=== PATIENT | female | born 1955 | race Caucasian/White ===

== ENCOUNTER 2018-07-28 15:00 | Outpatient (RCR) | payer MEDICAID, SELFPAY ==
--- NOTE | 2018-07-14 09:25 | IE_ITS ---
Date: July 14, 2018 Referring: PAUL Galeana M.D. Diagnosis: CTS P.T. 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 She states that she does alot of gardening at home, but recently she has bee limited by all capacities by a wrist issue that has been going on for a year. Things feel heavier.She is having some difficulty negotiating very small objects such as when she is trying to count out change or chopping vegetable. She has some numbness and tingling that occurs from the thumb side of her first few fingers of the L hand. It wakes her up in the night sometimes and she has pain directly around the base of the wrist. She had an EMG study completed with neurology in March and it did show mild CTS pt states .She has had splints for CT in the past with good effect. She currently does not have a splint. Pain Ratin/10. Pain at worst 10/10. Prior Level of Function: Unrestricted. Current Level of Function: Difficulty with her gardening chores. Difficulty with fine finger touch dexterity issues like counting out change and shopping. Previous Treatment: Nothing. Social: She lives in [place] alone currently. Comorbidities: Raynaud syndrome and a detached retina. Medications: Ibuprofen, Loratadine, Protonix, Aspirin. Quality of Life: __X__ Good Standardized Measures: DASH score: __56%__ OBJECTIVE: Posture: In standing pt demonstrates a small stature, mild forward head position and an increase in thoracic kyphosis.Pt has no gait abnormalities. No antalgia or ataxia noted. Palpation: She is tender to palpation through the distal wrist crease and through the area of the CT on the palmar surface of the L hand. Positive Tinel sign. An SFMA top tier assessment was completed: dysfunctional nonpainful patterns at cervical spine all motions. UE 1 and UE 2 patterns of the L side. Multi-segmental extension dysfunctional nonpainful arms down deep squat and single leg stance. ROM: Measurements for this pt are as follows: Cervical extension limited to 50% of available motion Cervical rotation limited to 50% of available motion Cervical flexion 75% of available motion Shoulder ROM Flexion 180 degrees R, 165 L Abduction 180 R, 130 L ER hand behind head she reaches a thumb position of T1 with R and C6 with the L. When reaching behind back for functional IR she reaches a thumb position of T12 with the R and L2 with the L. Joint Accessory Motion: Strength: Measurements for this pt are as follows: Mid delt 5/5 Biceps 5/5 Triceps 5/5 Wrist extension and flexion 5/5 bilaterally Director Of People strength as measured by hand dynamometer 55 lbs of pressure on the R and 50 lbs pressure on the L Neuro: Pt intact to light touch and sensation through UE dermatomes. Motor control appears intact over associated myotomes and pt demonstrates appropriate proprioception and kinesthetic awareness. Special Tests: Median nerve tension testing positive L, negative R. Ulnar nerve testing negative bilaterally. Phalen's test and prayer's test are positive L, negative R. Treatment: IE and assessment of functional ability, as well as training in a formal exercise program. Pt demonstrated verbal acknowledgment and technique demonstration. Pt was fabricated with a customized orthotic splint.This is a wrist cock-up splint to support the wrist in about 10 degrees of extension, mainly used for a resting pattern, particularly to be worn at night or in periods of disuse. It can be used as a functional splint as the material is Aquaplast and has a little more of a forgiving nature. IE: X [id number] Direct treatment time: 60 min Total treatment time: 60 min direct pt care ASSESSMENT: Patient is a 62-year-old female with a history of good physical health, referred for PT services with the diagnosis of CTS. Patient presents with clinical signs and symptoms consistent with this diagnosis through the LUE, as demonstrated by the following impairment level findings: ROM deficits through the L shoulder and cervical spine, positive Phalen's test, positive prayer's sign, positive Tinel's sign through the CT on the L, positive nerve tension testing through the median nerve on the L. Impairments are contributing to the following functional limitations:difficulty with performing job activities such as cutting and counting out change, alot of her fine finger dexterity is a little more apprehensive and affected. Patient is assessed as: __X__ Low 46789 complexity, based on the following: History: (list): Raynaud's syndrome, detached retina. Examination: (list): Positive prayer's sign on the L, positive Phalen's test L, positive Tinel's through the CT on the L, positive median nerve tension testing, and ROM deficits through the cervical spine and the L shoulder. Presentation: X Stable Decision-Making: X Low complexity 56 % Disability based on DASH __X__ Patient requires skilled PT intervention to remediate the above functional limitations to return to: __X__ Premorbid level of function Prognosis __X__ Good as evidence suggests improvement of functional abilities with compliance to a detailed HEP tailored to her diagnosis and following through with PT intervention. STG: __2__ weeks. 1. Pt will be independent in HEP both verbally and with ideal technique demonstration. LTG: __6__ weeks. 1. 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 PLAN: Patient to be seen 1 x per week, for 6 weeks, adjusting frequency of visits per patient symptoms and response to treatment. Treatment to include: X Manual therapy - [id number]: for enhancing muscle extensibility and improving joint arthrokinematics. X Therapeutic exercise - [id number] tactile cues, verbal education and advanced movement correctives for establishing muscle symmetry through the scapular thoracic region, improving stability and motor control through the cervical spine and upper quarter. X Ultrasound and e-stim available for pain modulation as necessary. The pt will be monitored for compliance to HEP and pts status will be updated accordingly. Plan may be modified as symptoms dictate. Thank you for this referral. Please do not hesitate to contact me with any questions or concerns regarding this patient's plan of care. KRISTOFER/ria
--- NOTE | 2018-07-28 16:37 | PTTR_ITS ---
DATE: 07/28/18 SUBJECTIVE: I am doing okay for the most part. OBJECTIVE: Manual therapy: ([id number]): Patient was placed in sitting and guided through light passive motion through the elbow and shoulder. Soft tissue work was completed through the proximal and distal common wrist extensor and flexor musculature. Patient then placed in supine and mobilized with median nerve glides while promoting proximal release of tension and distal flossing. She completed a nine hole peg test with 30 seconds on either side. 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 Patient finished through treatment with extension based stretching through the elbow and wrist. Direct treatment time: 30 minutes of direct patient care.
== END 2018-07-29 23:59 | disposition home or self-care (01) ==
LOC: PT 15:00
PROVIDERS: PCP Physician Assistant Medical; Referring Provider Physician Assistant Medical; Visit Provider Physician Assistant Medical
DX: G56.02 Carpal tunnel syndrome, left upper limb (principal)
CPT/HCPCS: 97140; 97161

== ENCOUNTER 2018-10-21 12:50 | Outpatient (CLI) | payer MEDICAID, SELFPAY | END 2018-10-21 13:10 | PROVIDERS: PCP Physician Assistant Medical; Visit Provider Physician Assistant Medical | DX: R30.0 Dysuria (principal) | CPT/HCPCS: 87086 ==

== ENCOUNTER 2018-11-03 19:08 | Outpatient (REF) | payer MEDICAID, SELFPAY ==
[2018-11-03 21:52] LABS: Bacteria Rare HPF (Negative); Epithelial Cells Rare HPF (Negative); RBC 0-2 (0-2); WBC 0-2 HPF (0-5)
[2018-11-03 21:53] LABS: C & S Indicated? No; Crystals Negative HPF (Negative); Mucus Negative (Negative)
[2018-11-03 21:54] LABS: Other Cells Few Renal (Negative)
== END 2018-11-03 19:28 ==
LOC: NCHCN 19:08
PROVIDERS: PCP Physician Assistant Medical; Visit Provider Specialist/Technologist Athletic Trainer
DX: R30.0 Dysuria (principal)
CPT/HCPCS: 81015; 87480; 87510; 87660

== ENCOUNTER 2018-11-09 14:37 | Outpatient (REF) | payer MEDICAID, SELFPAY ==
[2018-11-09 20:27] LABS: Abs Immature Grans 0.01 k/cumm (0.0-0.09); Absolute Eosinophil Count 0.21 k/cumm (0.0-0.7); Absolute Lymphocyte Count 0.26 k/cumm (1.2-3.4); Absolute Monocyte Count 0.61 k/cumm (0.11-0.7); Absolute Neutrophil Count 8.44 k/cumm (1.2-6.7); Eosinophils % 2.2; HCT 38.3 % (36.0-46.0); HGB 13.1 g/dL (12.0-15.5); Immature Grans % 0.1; Lymphocytes % 2.7; Mean Corp. HGB Concentration 34.2 g/dL (32.0-36.0); Mean Corpuscular Hemoglobin 29.6 pg (27.0-33.0); Mean Corpuscular Volume 86.7 fL (80-95); Mean Platelet Volume 10.9 fL (8.0-11.0); Monocytes % 6.4; Neutrophils % 88.6; Platelet Count 134 x1000/uL (130-400); RBC 4.42 m/cumm (4.00-5.20); RBC Distribution Width 13.2 % (11.7-14.6); White Blood Cell Count 9.53 k/cumm (4.4-10.8)
[2018-11-09 21:37] LABS: ALT 38 U/L (12-78); AST 31 U/L (15-37); Albumin 3.6 g/dL (3.4-5.0); Alkaline Phosphatase 79 U/L (46-116); Anion Gap 12.8 mmol/L (3-11); BUN 11 mg/dL (7-18); Bilirubin, Total 0.3 mg/dL (0.2-1.0); CO2 25.2 mmol/L (21.0-32.0); Calcium 8.7 mg/dL (8.5-10.1); Chloride 97 mmol/L (98-107); Glucose 121 mg/dL (70-100); Potassium 3.5 mmol/L (3.5-5.1); Sodium 135 mmol/L (136-145); Total Protein 7.5 g/dL (6.4-8.2)
== END 2018-11-09 14:57 ==
LOC: NCHCN 14:37
PROVIDERS: PCP Physician Assistant Medical; Visit Provider Specialist/Technologist Athletic Trainer
DX: R50.9 Fever, unspecified (principal)
CPT/HCPCS: 80053; 85025

== ENCOUNTER 2018-11-10 13:16 | Outpatient (REF) | payer MEDICAID, SELFPAY | END 2018-11-10 13:36 | LOC: NCHCN 13:16 | PROVIDERS: PCP Physician Assistant Medical; Visit Provider Specialist/Technologist Athletic Trainer | DX: R30.0 Dysuria (principal) | CPT/HCPCS: 87086 ==

== ENCOUNTER 2019-01-17 10:32 | Outpatient (REF) | payer MEDICAID, SELFPAY ==
[2019-01-17 19:00] LABS: Cholesterol 222 mg/dL (50-200); HDL Cholesterol 60 mg/dL (40-60); LDL CHOLESTEROL 135 mg/dL (<100); Triglyceride 114 mg/dL (30-150)
== END 2019-01-17 10:52 ==
LOC: NCHCN 10:32
PROVIDERS: PCP Physician Assistant Medical; Visit Provider Physician Assistant Medical
DX: E78.5 Hyperlipidemia, unspecified (principal)
CPT/HCPCS: 80061; 83721

== ENCOUNTER 2019-04-26 18:46 | Outpatient (REF) | payer MEDICAID, SELFPAY ==
[2019-04-28 14:09] LABS: Lyme Ab w Rflx to Lyme Confirm Negative
[2019-04-28 21:31] LABS: Anaplasma phagocytophilum Negative (Negative); B. miyamotoi PCR Negative (Negative); Babesia divergens/MO-1 Negative (Negative); Babesia duncani Negative (Negative); Babesia microti Negative (Negative); Ehrlichia chaffeensis Negative (Negative); Ehrlichia ewingii/canis Negative (Negative); Ehrlichia muris eauclairensis Negative (Negative)
== END 2019-04-26 19:06 ==
LOC: NCHCN 18:46
PROVIDERS: PCP Physician Assistant Medical; Visit Provider Physician Assistant Medical
DX: M54.5 Low back pain (principal)
CPT/HCPCS: 86618; 87798

== ENCOUNTER 2019-05-01 01:05 | Outpatient (CLI) | payer MEDICAID, SELFPAY ==
--- NOTE | 2019-05-01 08:51 | DI.RAD_ITS ---
SYMPTOM/DIAGNOSIS: LOW BACK PAIN M54.5 LUMBOSACRAL SPINE: Five views were obtained. There is a mild right convex lumbar scoliosis. The intervertebral disc spaces appear fairly well maintained. Minimal hypertrophic spurring of the vertebral endplates and facet joints noted. No evidence of spondylolysis or spondylolisthesis. CONCLUSION: Mild degenerative changes of the lumbar spine. SI JOINTS: Four views were obtained. Minimal hypertrophic spurring noted at the SI joints bilaterally. No gross erosive or destructive process. No significant sclerosis identified on oblique views. CONCLUSION: Mild degenerative changes of the SI joints. No gross evidence of sacroiliitis.
== END 2019-05-01 01:25 ==
PROVIDERS: PCP Physician Assistant Medical; Visit Provider Physician Assistant Medical
DX: M54.5 Low back pain (principal); M47.816 Spondylosis without myelopathy or radiculopathy, lumbar region; M53.3 Sacrococcygeal disorders, not elsewhere classified
CPT/HCPCS: 72110; 72202

== ENCOUNTER 2019-07-07 07:18 | Outpatient (CLI) | payer MEDICAID, SELFPAY ==
--- NOTE | 2019-07-07 10:16 | DI.RAD_ITS ---
SYMPTOMS/DIAGNOSIS: ELBOW PAIN RT, M25.521, HX FX WITH PIN PLACEMENT IN , PROGRESSIVELY WORSENING PAIN DAILY, CHRONIC RIGHT ELBOW: Four views were obtained. No previous films available for comparison. There is a radial head prosthesis. This appears somewhat subluxed with respect to the [place] radius and the capitellum as the prosthesis lies somewhat peripherally in the radial capitellar joint. Degenerative changes of the ulnar trochlear joint noted. There appears to be a joint effusion. CONCLUSION: Apparent subluxed radial head prosthesis, no previous films available for comparison.
== END 2019-07-07 07:38 ==
PROVIDERS: PCP Nurse Practitioner Family; Visit Provider Nurse Practitioner Family
DX: M25.521 Pain in right elbow (principal); Z87.81 Personal history of (healed) traumatic fracture
CPT/HCPCS: 73080

== ENCOUNTER 2019-08-01 00:41 | Outpatient (CLI) | payer MEDICAID, SELFPAY ==
--- NOTE | 2019-08-01 15:27 | DI.MRI_ITS ---
SYMPTOMS/DIAGNOSIS: LOW BACK PAIN, M54.5, LEFT LEG NUMBNESS/WEAKNESS MRI OF THE LUMBAR SPINE: Comparison is made with April,. T1, T2 and STIR sagittal and T1 and T2 axial sequences were performed. The vertebral bodies are well maintained in height. The conus medullaris appears normal. The aorta is normal in diameter. The L1-2 disc is intact. There is minimal bulging of the L2-3 and L3-4 discs. The L4-5 disc shows mild bulging eccentric toward the left. There is no significant neural foraminal narrowing or central canal stenosis. The L5-S1 level shows mild facet degenerative changes, but no significant disc bulging, neural foraminal narrowing or central canal stenosis. The urinary bladder is noted to be markedly distended, nearly to the level of the umbilicus. IMPRESSION: 1. Mild degenerative disc changes and facet degenerative changes. There is no evidence of disc herniation, central canal stenosis or neural foraminal narrowing. 2. Marked distention of the urinary bladder.
== END 2019-08-01 01:01 ==
PROVIDERS: PCP Nurse Practitioner Family; Visit Provider Physician Assistant Medical
DX: M54.5 Low back pain (principal); R20.0 Anesthesia of skin; M51.37 Other intervertebral disc degeneration, lumbosacral region; M47.817 Spondylosis without myelopathy or radiculopathy, lumbosacral region
CPT/HCPCS: 72148

== ENCOUNTER 2019-08-14 00:40 | Outpatient (CLI) | payer MEDICAID, SELFPAY ==
--- NOTE | 2019-08-14 15:22 | DI.US_ITS ---
EXAM: US renal CLINICAL HISTORY: BLADDER DISTENSION, N32.89 TECHNIQUE: Ultrasound performed using standard protocol. COMPARISON: None. FINDINGS: Kidneys are normal in size and shape. There is no evidence of nephrolithiasis, hydronephrosis. or a renal mass. Urinary bladder is unremarkable in appearance with pre and postvoid urinary bladder volu me measurements 281 cc and 111 cc respectively. IMPRESSION: Post void residual volume of the bladder of 111 cc's. Otherwise unremarkable exam.
== END 2019-08-14 01:00 ==
PROVIDERS: PCP Nurse Practitioner Family; Visit Provider Physician Assistant Medical
DX: N32.89 Other specified disorders of bladder (principal)
CPT/HCPCS: 76770

== ENCOUNTER 2019-08-14 13:32 | Outpatient (CLI) | payer MEDICAID, SELFPAY ==
[2019-08-14 16:19] LABS: Bilirubin Negative (Negative); Blood Trace-intact (Negative); Clarity Clear (Clear); Glucose Negative (Negative); Ketones Negative (Negative); Leukocyte Esterase Small (Negative); Nitrite Negative (Negative); Specific Gravity <= 1.005 (1.005-1.025); Urobilinogen 0.2 EU/dL (Up TO 0.2); pH 5.5 (5-8)
[2019-08-14 16:41] LABS: Epithelial Cells Rare HPF (Negative); RBC 0-2 (0-2); WBC 20-50 HPF (0-5)
[2019-08-14 16:42] LABS: Bacteria Moderate HPF (Negative); C & S Indicated? Yes; Casts Negative LPF (Negative); Crystals Negative HPF (Negative); Mucus Negative (Negative)
== END 2019-08-14 13:52 ==
PROVIDERS: PCP Nurse Practitioner Family; Visit Provider Physician Assistant Medical
DX: N39.0 Urinary tract infection, site not specified (principal)
CPT/HCPCS: 81003; 81015; 87086

== ENCOUNTER 2019-08-18 12:28 | Outpatient (CLI) | payer MEDICAID, SELFPAY ==
--- NOTE | 2019-08-18 11:20 | DI.CT_ITS ---
EXAM: CT UPPER EXTREMITY RT WO CLINICAL HISTORY: history of right radial head fx M25.529 PAIN IN ELBOW. TECHNIQUE: The examination was carried out according to the usual protocol. COMPARISON: XR elbow RT complete from 07/07/2019 FINDINGS: Compared with the previous plain films, again noted is the current subluxation of the radial head pro sthesis with respect to the [place] radius and capitellum. The prosthesis is again demonstrated to rid e peripherally in the radial capitellar joint. IMPRESSION: When compared with a prior study, again noted is the apparent subluxation of the head prosthesis.
== END 2019-08-18 12:48 ==
PROVIDERS: PCP Nurse Practitioner Family; Visit Provider Physician Assistant
DX: M25.521 Pain in right elbow (principal); S52.121D Displaced fracture of head of right radius, subsequent encounter for closed fracture with routine healing; Z96.622 Presence of left artificial elbow joint
CPT/HCPCS: 73200

== ENCOUNTER 2019-08-21 09:10 | Outpatient (CLI) | payer MEDICAID, SELFPAY ==
--- NOTE | 2019-08-21 15:12 | DI.MAMMO_ITS ---
EXAM: MG MAMMO SCREENING CLINICAL HISTORY: SCREENING Z00.8 HEALTH MAINTENANCE EXAM. TECHNIQUE: Mammograms were interpreted according to the usual protocol including computer analysis w Surface Tension CAD system, tomosynthesis and C-view imaging. COMPARISON: No exams were available for comparison FINDINGS: The breast tissue is heterogeneously radiodense, which lowers the sensitivity of the study. There is no dominant mass. There are no suspicious calcifications and there has been no significant interval change when compared with prior images. IMPRESSION: No evidence of malignancy, category 1, yearly screening mammography is recommended. BI-RADS category C. BI-RADS Cat 1 - Negative Breast Density - Category C - Heterogeneously dense
== END 2019-08-21 09:30 ==
PROVIDERS: PCP Nurse Practitioner Family; Visit Provider Physician Assistant Medical
DX: Z12.31 Encounter for screening mammogram for malignant neoplasm of breast (principal)
CPT/HCPCS: 77063; 77067

== ENCOUNTER 2019-08-25 19:49 | Outpatient (REF) | payer MEDICAID, SELFPAY ==
--- NOTE | 2019-08-25 14:30 | PAPFT_PTH ---
PATIENT: Ellie Chauhan LOC: [facility]#:[id number] AGE/SX: 64/F ROOM: RE08/25/[address]: Shara Burks : 1955 BED: DIS: 08/25/2019 SPEC #: [id number] RECD: 08/28/19 13:09 STATUS: [place] REQ #: [id number] MARGOT: 08/25/19 14:[address]: Shara Burks DEPT: [facility] Cytology RECD BY: Ashanti Smallwood ENTERED: 08/28/19 13:09 SP TYPE: PAPFT OTHR DR: Tricia Calderón Tissues: 1 - CX/ENDOCX FOR PAP SMEARS Procedures: PAP THIN PREP/UVM Screening HPV DNA PROBE Comments: [id number]
[2019-08-25 19:54] LABS: ALT 24 U/L (14-59); AST 16 U/L (15-37); Albumin 3.8 g/dL (3.4-5.0); Alkaline Phosphatase 70 U/L (46-116); Anion Gap 10.3 mmol/L (3-11); BUN 19 mg/dL (7-18); Bilirubin, Total 0.2 mg/dL (0.2-1.0); CO2 23.7 mmol/L (21.0-32.0); CREATININE 0.75 mg/dL (0.55-1.02); Calcium 8.7 mg/dL (8.5-10.1); Chloride 105 mmol/L (98-107); Glucose 105 mg/dL (70-100); Potassium 3.9 mmol/L (3.5-5.1); Sodium 139 mmol/L (136-145); Total Protein 7.6 g/dL (6.4-8.2)
[2019-08-28 10:33] LABS: Syphilis Serology (RPR) Negative (Negative)
[2019-08-28 11:40] LABS: HIV-1/2 Ag & Ab Screen Negative (NEGAT)
[2019-08-28 11:43] LABS: Hepatitis C Ab w Rflx HCV PCR Negative (NEGAT)
[2019-08-28 14:08] LABS: Chlamydia Result Negative; GC Result Negative; Specimen Description CERVIX
== END 2019-08-25 20:09 ==
LOC: NCHCN 19:49
PROVIDERS: PCP Nurse Practitioner Family; Visit Provider Physician Assistant Medical
DX: N32.89 Other specified disorders of bladder (principal); Z11.59 Encounter for screening for other viral diseases; Z11.4 Encounter for screening for human immunodeficiency virus [HIV]; Z12.4 Encounter for screening for malignant neoplasm of cervix; Z11.51 Encounter for screening for human papillomavirus (HPV); Z11.3 Encounter for screening for infections with a predominantly sexual mode of transmission
CPT/HCPCS: 80053; 86803; 87389; 87491; 87591; 88142; 86592; 87624

== ENCOUNTER 2019-08-29 13:09 | Outpatient (CLI) | payer MEDICAID, SELFPAY ==
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
== END 2019-08-29 13:29 ==
PROVIDERS: PCP Physician Assistant Medical; Visit Provider Student in an Organized Health Care Education/Training Program
DX: S52.121A Displaced fracture of head of right radius, initial encounter for closed fracture (principal); G56.21 Lesion of ulnar nerve, right upper limb; Z01.818 Encounter for other preprocedural examination
CPT/HCPCS: NC

== ENCOUNTER 2019-09-06 06:57 | Day surgery (SDC) | payer MEDICAID, SELFPAY ==
[2019-09-06 07:16] VITALS: BP 109/67; PULSE 65; RESP 18; TEMP 36.3; O2SAT 98
[2019-09-06] MEDS: Lactated Ringers 1,000 ML 80 ML IV (07:25)
[2019-09-06] MEDS: ceFAZolin 2 GM/50 ML BAG IVPB (07:42)
--- NOTE | 2019-09-06 07:42 | PDOC.DSDIS_ITS ---
Discharge Plan Disposition Patient Disposition: HOME Condition: Good Discharge Details Reason For Visit: CTS , NON UNION RADIAL NECK Attending Provider: Marco A Horvath Primary Care Provider: Shara Burks Home Meds and New Rx's Prescriptions: New hydrocodone-acetaminophen 5-325 mg tablet 1 tab PO Q4H PRN (Reason: pain) Qty: 14 RF: 0 acetaminophen 500 mg tablet 500 mg PO Q8H PRN (Reason: pain) Qty: 60 RF: 3 Continued meclizine 12.5 mg tablet 12.5 mg PO Q6H PRN PRNRF: 0 aspirin [Aspir-81] 81 MG tablet,delayed release (DR/EC) 1 tab PO DAILY RF: 0 multivitamin 1 EACH capsule 1 cap PO DAILY RF: 0 pantoprazole 40 MG tablet,delayed release (DR/EC) 40 mg PO DAILY RF: 0 vitamin B complex [B-Complex] 1 EACH tablet 1 ea PO DAILY RF: 0 loratadine 10 MG tablet 10 mg PO DAILY RF: 0 calcium carbonate-vitamin D3 [Calcium 600 with Vitamin D3] 600 mg(1,500mg) - 500 unit Capsule 2 cap PO DAILY RF: 0 sulfamethoxazole-trimethoprim [Bactrim] 400-80 mg Tablet 1 tab PO BID RF: 0 ibuprofen 800 MG tablet 800 mg PO TID PRN PRNQty: 60 RF: 0 Discharge Instructions Additional Instructions: Activity: You should stay in the sling for the first 2 weeks. You may come out of the sling for gentle motion and hygiene but should largely remain in the sling to allow the incision sites to heal. Gentle motion of the elbow, hand, wrist, and fingers is okay and encouraged after the first few days, but no repetitive activites nor heavy lifting. You may apply ice. Medications: - You should take Tylenol and Ibuprofen around the clock. - You have been prescribed Hydrocodone for breakthrough pain. Dressings: - The initial surgical dressing should stay in place for 3 days. It may then be removed and kept clean and dry. You should cover with a light gauze dressing. The wrist dressing can be replaced with a bandaid. The elbow wounds can be covered with a light gauze wrap. You may also choose to leave the elbow dressing in place until follow-up if so desired. - You may shower after 3 days and get the wound wet. Dry and then cover with fresh gauze/dressing. Follow-up: 10 days Referrals: Marco A Horvath MD [ [facility] STAFF PHYSICIAN] - Equipment/Supplies: Sling Activity:: Gentle range of motion, otherwise in sling Remove Dressings/Wound Care:: 72 hours Shower/Bathe:: 72 hours Diet:: As Tolerated Discharge Orders Discharge Orders: Discharge Order (Routine); Ordered 09/06/19 Ordered By: Marco A Horvath DS: Diagnosis Discharge Diagnosis (1) Right upper extremity numbness: Status: Acute (2) Right radial head fracture: Status: Acute (3) Cubital tunnel syndrome on right: Status: Acute
[2019-09-06] MEDS: Sodium Bicarbonate 50 MEQ/50 ML VIAL (07:55)
[2019-09-06 08:58] VITALS: BP 126/61; PULSE 71; RESP 16; TEMP 36.6; O2SAT 97
[2019-09-06 09:02] VITALS: BP 116/68; PULSE 74; RESP 13; TEMP 36.6; O2SAT 95
[2019-09-06 09:07] VITALS: BP 120/71; PULSE 71; RESP 16; TEMP 36.6; O2SAT 95
[2019-09-06 09:12] VITALS: BP 132/62; PULSE 73; RESP 14; TEMP 36.6; O2SAT 97
[2019-09-06 10:02] VITALS: BP 121/71; PULSE 68; RESP 15; TEMP 36.3; O2SAT 98
--- NOTE | 2019-09-07 06:39 | ROE_ITS ---
Date of service: 09/06/19 Time of Service: 10:39 Operative Note Operative Note DATE OF PROCEDURE: 09/06/19 PRE-OP DIAGNOSIS: Right retained radial head prosthesis, Right cubital tunnel syndrome, Right carpal tunnel syndrome POST-OP DIAGNOSIS: same PROCEDURE: Endoscopic right carpal tunnel release, right cubital tunnel decompression, removal of right radial head prosthesis and radiocapitellar synovectomy SURGEON: Marco A Horvath SALES REPRESENTATIVE GROCERIES: Krystina Patricia ANESTHESIA: GETA ESTIMATED BLOOD LOSS: 10 PATHOLOGY: none sent TOURNIQUET TIME: 45 COMPLICATIONS: None Patient was transported to: PACU Patient's condition: stable Indications: Ellie is a 64 who has had symptoms of carpal tunnel syndrome, cubital tunnel syndrome, and a painful elbow stemming from a retained radial head prosthesis which was placed in the 80s and not intended to stay permanently. Nonoperative treatment options had been trialed. Given failure of nonoperative treatments and persistent symptoms, I offered operative intervention. I reviewed the technical details of the surgeries. I reviewed the risk of the procedure to include bleeding, infection, pain, stiffness, damage to nerves and vessels, damage to muscles and tendons, continued symptoms, elbow instability, need for repeat procedures. Despite these risks, the patient elected to proceed. Findings: There was a tightened cubital tunnel. There was an epitrochlearis muscle present compressing the ulnar nerve. The ulnar nerve was release from the first motor branch distally through the [place] of Mode proximally. The carpal tunnel was released endoscopically without difficulty nor issue. The elbow was injured to a Neely approach and the radial head prosthesis was removed. There is notable signs of deterioration of the radial head prosthesis. A synovectomy was performed of the radiocapitellar joint. Procedure Description: Ellie was greeted in the preoperative holding area. Name and surgical site were confirmed. The history and physical was completed. The consent was reviewed the patient and signed. She was taken back to the operating room. The patient was placed in the supine positioned and a general anesthetic was administered. The right arm was then prepped with ChloraPrep and draped in a standard fashion after a nonsterile tourniquet was placed high up into the axilla of the arm. Prophylactic antibiotics in the form of cefazolin were administered. A timeout was performed for safe surgery. Carpal Tunnel Release: The surgical site was marked in the volar wrist creases in line with the radial border of the fourth ray. This area was anesthetized with approximately 6cc of 1% Lidocaine. The limb was then exsanguinated with an Esmarch. The skin was incised with a 15 blade, approximately 1cm. The skin only was cut and the deeper tissue was dissected bluntly with a tenotomy scissor, avoiding passing nerve and venous structures. The fascia was penetrated and opened bluntly. A two-prong skin hook was placed under this proximal fascial edge. A series of hamate finders were used to identify and dilate the carpal tunnel. Synovial elevator was used to free synovial attachments to the underside of the cage sverse carpal ligament. My thumb was kept in the palm to krystina the distal extent of the carpal tunnel and correctly position the hand. The Microaire endoscope was inserted without difficulty and without resistance. Excellent visualization showed horizontally running fibers of the transverse carpal ligament (TCL). The distal extent of the TCL was visualized and the end of the scope palpated with the thumb. The blade was elevated and withdrawn from distal to proximal. The TCL was split into two flaps. The endoscope was reinserted to confirm complete release and any remnant ligament was incised. The scope was withdrawn and the proximal aspect of the carpal tunnel was grossly inspected and appeared release with the median nerve visible. The antebrachial fascia at the level of the wrist was then freed from the overlying skin and then the underlying median nerve with blunt dissection. This was transected longitudinally for about 3cm proximal to the wrist incision. The wound was then irrigated with easy flow of irrigant distally and proximally. The incision was closed with a single 4-0 Nylon suture. Cubital Tunnel Release: The surgical site was drawn on the skin as was the lateral epicondyle borders. The planned surgical field was anesthetized with 0.25% bupivacaine with epinephrine. A 6 cm incision was made curvilinearly around the medial elbow. The skin was incised only. The deep tissue subcutaneous fat was dissected with a tenotomy scissors trying to protect any branches of the medial antebrachial cutaneous nerve. Any branches that were identified were retracted out of the way. The ulnar nerve was palpated and identified. A small window into the cubital tunnel was created and the nerve is able to be palpated with the [place] proximal to the cubital tunnel. A Metzenbaum scissor was then used to open up the sheath starting with the Mcelroy's ligament. There is a large epitrochlear areas muscle which was present and was visibly compressing the ulnar nerve. I then worked distal over the ulnar nerve releasing any constraints against the nerve all the way to the fascia of the FCU muscle belly. This muscle belly was bluntly all the way down to the first motor branch of the ulnar nerve. Likewise starting there at the lateral condyle proceeded working proximally to release any constraints over the ulnar nerve. This was taken all the way to the arcade of Tim. The medial intermuscular septum was also palpated in any sharp edges against the ulnar nerve were resected. After fully releasing the nerve it was inspected visually. I was also able to palpate the nerve fully and reach one finger up into the proximal distal aspects to make sure there is no constraints against the nerve. A freer elevator was also used to slide easily against the ulnar nerve without any points of constriction. The arm was then taken through range of motion. The ulnar nerve did not sublux/dislocate out of its groove behind the lateral epicondyle. Therefore, no transposition was performed. Radial Head Prosthesis Removal: Previous incision of the lateral elbow was injected with 0.25% bupivacaine with epinephrine. A 4 cm incision was made. The dissection was carried onto the skin sharply. Tenotomy scissors were utilized to dissect down to the fascia of the lateral forearm. The tendinous fibers of the EDC tendon were identified. These were then incised and elevated off of the lateral humerus anteriorly and split. With them deeper tissues were identified in the capsule of the radial capitellar joint was incised. There is notable hypertrophy of this area. The tissue was quite dense. What was likely previous annual ligament was thickened and difficult to incise. All dissection was carried anterior to the equator of the joint to avoid any injury to the lateral ulnar collateral ligament. The radial head prosthesis was identified and was able to be removed with an osteotome freeing it out. I then took a rondure your and debrided the radiocapitellar joint of any loose synovitis. There is notable hypertrophy of the soft tissues. This made visualization quite challenging. There irrigation of the joint was performed. Again, rondure was used to remove any apparent synovitis within the elbow joint itself. There is notable arthritic change seen along the capitellum and the lateral humerus. There is some bony irregularities which were smoothed with a rondure work. The wound was once again irrigated. The deep layer of the elbow joint was closed with 0 Vicryl. The EDC tendon was closed with a running 2-0 Vicryl. The deep dermal layer was closed with 3-0 Vicryl followed by 4-0 nylon. The wounds were dressed with Xeroform, 4 x 4's, ABD, Kerlix and an Rashid wrap. She was placed into a sling. The patient was transferred back to same day surgery area in stable condition.
== END 2019-09-06 10:30 | disposition home or self-care (01) ==
PROVIDERS: PCP Physician Assistant Medical; Visit Provider Student in an Organized Health Care Education/Training Program
PROC: 01N54ZZ Release Median Nerve, Percutaneous Endoscopic Approach (ICD-10-PCS; CPT 29848; principal; 2019-09-06 08:45)
DX: G56.01 Carpal tunnel syndrome, right upper limb (principal); G56.21 Lesion of ulnar nerve, right upper limb; T84.84XA Pain due to internal orthopedic prosthetic devices, implants and grafts, initial encounter; M25.521 Pain in right elbow; K21.9 Gastro-esophageal reflux disease without esophagitis
CPT/HCPCS: 64718; 24164; 29848; J0131; J0690; J1100; J1200; J1885; J2250; J2405; L3650

== ENCOUNTER 2019-09-27 01:08 | Outpatient (CLI) | payer MEDICAID, SELFPAY ==
--- NOTE | 2019-09-27 16:30 | DI.DEXA_ITS ---
EXAM: XR DEXA BONE DENSITY W/WO ISIAH INDICATION: HEALTH MAINTENANCE EXAM, Z00.8. COMPARISON: XR lumbar spine complete from 05/01/2019 TECHNIQUE: 2D digital imaging was performed. FINDINGS: The ISIAH image shows no evidence of compression fractures. The bone mineral density measurements of the lumbar spine correspond to a total T-score of -2.5, in the osteoporotic range. Bone mineral dens ity measurements of the left hip correspond to a total T-score of -1.2 and a femoral neck T-score of -1.4, in the osteopenic range. Bone mineral density measurements of the left forearm correspond to a T-score of the distal 3rd of -1.0, the lower range of normal. IMPRESSION: Osteoporosis of the lumbar spine. Osteopenia of the left hip and normal bone density of left forearm.
== END 2019-09-27 01:28 ==
PROVIDERS: PCP Physician Assistant Medical; Visit Provider Physician Assistant Medical
DX: M81.0 Age-related osteoporosis without current pathological fracture (principal); M85.88 Other specified disorders of bone density and structure, other site
CPT/HCPCS: 77080

== ENCOUNTER 2019-10-05 15:23 | Outpatient (REF) | payer MEDICAID, SELFPAY ==
[2019-10-05 16:35] LABS: Bilirubin Negative (Negative); Blood Trace-intact (Negative); Clarity Clear (Clear); Glucose Negative (Negative); Ketones Negative (Negative); Leukocyte Esterase Negative (Negative); Nitrite Negative (Negative); Specific Gravity 1.015 (1.005-1.025); Urobilinogen 0.2 EU/dL (Up TO 0.2)
[2019-10-05 17:03] LABS: Bacteria Rare HPF (Negative); C & S Indicated? No; Casts Negative LPF (Negative); Crystals Negative HPF (Negative); Epithelial Cells Negative HPF (Negative); Mucus Negative (Negative); Other Cells Negative (Negative); RBC 0-2 (0-2); WBC Negative HPF (0-5)
== END 2019-10-05 15:43 ==
LOC: LBN 15:23
PROVIDERS: PCP Physician Assistant Medical; Visit Provider Nurse Practitioner Gerontology
DX: R31.9 Hematuria, unspecified (principal)
CPT/HCPCS: 81003; 81015

== ENCOUNTER 2019-12-20 09:39 | Emergency (ER) | payer MEDICAID, SELFPAY ==
[2019-12-20] VITALS (32 sets, daily range): BP systolic 97–140; BP diastolic 49–79; PULSE 57–70; RESP 13–24; TEMP 36.4–36.9; O2SAT 96–100
--- NOTE | 2019-12-20 10:20 | ED.GENADUL_ITS ---
Discharge Plan Disposition Patient Disposition: HOME Condition: Stable Discharge Details Chief Complaint: SOB Clinical Impression: Shortness of breath, Chest tightness Primary Care Provider: Shara Burks ED Provider: Darlene Maguire Home Meds and New Rx's Prescriptions: Continued alendronate [Fosamax] 70 mg tablet 70 mg PO QWEEK RF: 0 meclizine 12.5 mg tablet 12.5 mg PO Q6H PRN PRNRF: 0 albuterol sulfate 90 mcg/actuation Hfa Aerosol Inhaler 2 inh INHALATION ONCE PRNRF: 0 loratadine 10 mg Tablet 10 mg PO DAILY PRNRF: 0 aspirin [Aspir-81] 81 MG tablet,delayed release (DR/EC) 1 tab PO DAILY RF: 0 multivitamin 1 EACH capsule 1 cap PO DAILY RF: 0 pantoprazole 40 MG tablet,delayed release (DR/EC) 40 mg PO DAILY PRNRF: 0 vitamin B complex [B-Complex] 1 EACH tablet 1 ea PO DAILY RF: 0 prednisolone acetate [Pred Forte] 1 % Drops,Suspension 1 drp ophthalmic (eye) DIRECTED RF: 0 ciprofloxacin HCl [Ciloxan] 0.3 % Drops 1 drp ophthalmic (eye) QID RF: 0 calcium carbonate-vitamin D3 [Calcium 600 with Vitamin D3] 600 mg(1,500mg) - 500 unit Capsule 2 cap PO DAILY RF: 0 ibuprofen 800 MG tablet 800 mg PO TID PRN PRNQty: 60 RF: 0 Discharge Instructions Instructions: Chest Pain (ED), Dyspnea (ED) Additional Instructions: Please return immediately to the emergency department if you develop any new or worsening symptoms, if your condition does not improve as expected, or if you become otherwise concerned. It is extremely important that you call soon as possible to make an appointment to be seen in follow-up for this visit by your primary care doctor. It is also extremely important that you have an outpatient stress test as we discussed, this is scheduled for 12/26/2019 at 9:00, please arrive at 8:45. Referrals: Shara Burks PA [Primary Care Provider] - Discharge Data Discharge Date/Time-TO BE ENTERED AT DEPARTURE: 12/20/19 14:45 Medical Decision Making Ellie Chauhan is a 64-year-old woman with a history of GERD, tobacco use in the past who presented to the emergency department with shortness of breath, chest tightness. Patient also reporting aching in her upper back since onset of symptoms this morning. On exam patient is well and nontoxic appearing. Benign cardiopulmonary exam. Concern for ACS, CHF, GERD, PE. Doubt aortic etiology. Plan for EKG, chest x-ray, screening labs, telemetry. Patient with no current chest pain, will hold nitroglycerin. EKG without ischemic changes, nondiagnostic. Chest x-ray nondiagnostic. On reevaluation, patient reporting mild increase in upper back pain. Denies chest pain, denies feeling short of breath at this time. Labs reviewed, troponin negative, d-dimer slightly elevated. Plan for CTA chest. CTA chest shows no abnormality of the aorta, no pulmonary embolus. Patient reports feeling well, reports that her back pain is very mild at this time, denies any other symptoms. Patient is low risk by heart score, plan for outpatient stress testing, outpatient follow-up. I had a lengthy discussion with Patient regarding return to emergency department precautions, home care, and importance of outpatient follow-up including for outpatient stress test. Pt verbalizes understanding of the plan and is amenable. Patient discharged to home with clear plan for outpatient follow-up. All questions were answered. Disposition decision was made weighing the risks and benefits of hospitalization versus outpatient treatment, the risk for further decompensation, and the patient's wishes. Medical Records Medical records reviewed: Yes I reviewed the patient's medical records. Imaging Data Radiologic Study: Attestation: I personally reviewed and interpreted this imaging study as follows: Radiologist's impression: CLINICAL HISTORY: SOB. TECHNIQUE: 2D digital imaging was performed. COMPARISON: CHEST 2 VIEWS PA,LAT from 10/29/2015 FINDINGS: LUNGS: Clear. No pleural abnormality seen. HEART: Normal. MEDIASTINUM: Normal. OTHER FINDINGS:Normal. BONE:Normal. IMPRESSION: No acute pulmonary findings. EXAM: CT CHEST PE CTA CLINICAL HISTORY: SOB. TECHNIQUE: Imaging Protocol: Axial CT angiography was performed with multislice acquisition and multiplanar and/or 3D reconstructions. CONTRAST MATERIAL: Intravenous: Omnipaque 350 Contrast volume:60 mL contrast route:IV - COMPARISON: No exams were available for comparison FINDINGS: Pulmonary Arteries: No evidence of filling defect to suggest pulmonary emboli. Tracheobronchial tree: Patent where visualized. Mediastinum and Shavon: No dominant adenopathy or fluid collection. Pulmonary parenchyma: Dependent atelectasis in the lung bases. No architectural distortion. Pleura: No effusion or pneumothorax. Heart: The heart is not dilated. Mild coronary artery calcification. No evidence of right heart strain. No pericardial effusion. Aorta: Atherosclerosis. No evidence of aneurysm or dissection. Upper abdomen: Status post cholecystectomy. Bones: Degenerative changes in the spine. IMPRESSION: No evidence of pulmonary embolism, thoracic aortic aneurysm or dissection. Lab Data Lab results reviewed: Yes I reviewed the patient's lab results. Labs: Laboratory Tests Range/Units 12/20/19 12/20/19 12/20/19 10:10 10:10 10:10 WBC (4.4-10.8) k/cumm 4.41 RBC (4.00-5.20) m/cumm 4.28 Hgb (12.0-15.5) g/dL 12.7 Hct (36.0-46.0) % 37.2 MCV (80-95) fL 86.9 MCH (27.0-33.0) pg 29.7 MCHC (32.0-36.0) g/dL 34.1 RDW (11.7-14.6) % 13.7 Plt Count (130-400) x1000/uL 192 MPV (8.0-11.0) fL 9.7 Immature Gran % % 0.0 Neutrophils % 58.1 Lymphocytes % 28.8 Monocytes % 7.7 Eosinophils % 5.2 Basophils % 0.2 Absolute Neutrophils (1.2-6.7) k/cumm 2.56 Absolute Lymphocytes (1.2-3.4) k/cumm 1.27 Absolute Monocytes (0.11-0.7) k/cumm 0.34 Absolute Eosinophils (0.0-0.7) k/cumm 0.23 Absolute Basophils (0.0-0.2) k/cumm 0.01 D-Dimer (<500) ng/mlFEU 502 H Sodium (136-145) mmol/L 141 Potassium (3.5-5.1) mmol/L 4.2 Chloride (98-107) mmol/L 107 Carbon Dioxide (21.0-32.0) mmol/L 25.3 Anion Gap (3-11) mmol/L 8.7 BUN (7-18) mg/dL 16 Creatinine (0.55-1.02) mg/dL 0.64 Estimated GFR/1.73 m2 (mL/min/1.73m2) >= 60.00 Glucose (74-106) mg/dL 95 Calcium (8.5-10.1) mg/dL 8.5 Total Bilirubin (0.2-1.0) mg/dL 0.3 AST (15-37) U/L 17 ALT (14-59) U/L 21 Alkaline Phosphatase (46-116) U/L 63 Troponin I (<0.06) ng/Ml < 0.05 NT-Pro-B Natriuret Pep (<300) pg/mL 100 Total Protein (6.4-8.2) g/dL 7.5 Albumin (3.4-5.0) g/dL 3.7 Range/Units 12/20/19 13:15 WBC (4.4-10.8) k/cumm RBC (4.00-5.20) m/cumm Hgb (12.0-15.5) g/dL Hct (36.0-46.0) % MCV (80-95) fL MCH (27.0-33.0) pg MCHC (32.0-36.0) g/dL RDW (11.7-14.6) % Plt Count (130-400) x1000/uL MPV (8.0-11.0) fL Immature Gran % % Neutrophils % Lymphocytes % Monocytes % Eosinophils % Basophils % Absolute Neutrophils (1.2-6.7) k/cumm Absolute Lymphocytes (1.2-3.4) k/cumm Absolute Monocytes (0.11-0.7) k/cumm Absolute Eosinophils (0.0-0.7) k/cumm Absolute Basophils (0.0-0.2) k/cumm D-Dimer (<500) ng/mlFEU Sodium (136-145) mmol/L Potassium (3.5-5.1) mmol/L Chloride (98-107) mmol/L Carbon Dioxide (21.0-32.0) mmol/L Anion Gap (3-11) mmol/L BUN (7-18) mg/dL Creatinine (0.55-1.02) mg/dL Estimated GFR/1.73 m2 (mL/min/1.73m2) Glucose (74-106) mg/dL Calcium (8.5-10.1) mg/dL Total Bilirubin (0.2-1.0) mg/dL AST (15-37) U/L ALT (14-59) U/L Alkaline Phosphatase (46-116) U/L Troponin I (<0.06) ng/Ml < 0.05 NT-Pro-B Natriuret Pep (<300) pg/mL Total Protein (6.4-8.2) g/dL Albumin (3.4-5.0) g/dL ECG Data Attestation: I personally reviewed and interpreted this ECG (s) as follows: Interpretation: EKG 9:56 shows sinus rhythm at 64, normal axis, no acute ischemic changes, nondiagnostic EKG EKG 14:10 shows sinus rhythm at 64, normal axis, no acute ischemic changes, nondiagnostic EKG HPI General Mode of arrival: ambulatory . Date/Time Provider Initiated Documentation: 12/20/19 09:47 . Limitations to Documentation: no limitations . Information obtained by: patient, RN notes reviewed and old records reviewed . HPI Narrative: Ellie Chauhan is a 64-year-old woman with a history of GERD, hyperlipidemia presenting to the emergency department with shortness of breath. Patient reports that she woke up this morning at approximately 1 AM feeling short of breath. Patient also reports that she had a sensation of fullness in her chest that felt like gas pains. Patient reports that she walked around and gradually began to feel better, and went back to bed at approximately 4 AM. Patient reports that when she woke up this morning she had a continued sensation of shortness of breath/tightness in her chest. She denies chest pain. Patient reports that she has a history of GERD, and takes Protonix for this, although she has not taken her Protonix for some time. Patient is unsure if this episode feels similar to her GERD symptoms. Patient denies fever, vomiting, any other pain, diarrhea, swelling in her legs, numbness, weakness, rash, cough. No recent travel. No history of blood clots. Has been eating and drinking as usual. Patient reports that her shortness of breath has improved and is mild. Upon review of systems patient reports that since onset of shortness of breath she has also noticed that her upper back is been aching, patient states that she is unsure if that is because she has been doing more physical labor than usual for her. Related Data Home Medications Medication Instructions Recorded Confirmed aspirin [Aspir-81] 1 tab PO DAILY 01/09/15 12/20/19 multivitamin 1 cap PO DAILY 01/09/15 12/20/19 pantoprazole 40 mg PO DAILY PRN 05/25/17 12/20/19 vitamin B complex [B-Complex] 1 ea PO DAILY 05/25/17 12/20/19 meclizine 12.5 mg tablet 12.5 mg PO Q6H PRN PRN tab 08/09/19 12/20/19 calcium carbonate-vitamin D3 2 cap PO DAILY 08/29/19 12/20/19 [Calcium 600 with Vitamin D3] ibuprofen 800 mg PO TID PRN PRN #60 tab 09/06/19 12/20/19 albuterol sulfate 2 inh INHALATION ONCE PRN 10/23/19 12/20/19 loratadine 10 mg PO DAILY PRN 10/23/19 12/20/19 alendronate 70 mg tablet 70 mg PO QWEEK 11/16/19 12/20/19 ciprofloxacin HCl [Ciloxan] 1 drp OPHTHALMIC (EYE) QID 12/20/19 12/20/19 prednisolone acetate [Pred Forte] 1 drp OPHTHALMIC (EYE) DIRECTED 12/20/19 12/20/19 Previous Rx's Medication Instructions Recorded ibuprofen 800 mg PO TID PRN PRN #60 tab 09/06/19 Allergies Allergy/AdvReac Type Severity Reaction Status Date / Time metronidazole [From Flagyl] AdvReac Intermediate rash, Verified 12/20/19 09:55 bleeding General Stated Complaint: SOB CHLOE: 2 Review of Systems Narrative: Constitutional: denies fevers Eyes: denies eye pain ENT: denies ear pain, dental pain, sore throat Cardiovascular: denies chest pain, edema, reports chest tightness Respiratory: denies cough, reports shortness of breath GI: denies abdominal pain, vomiting, diarrhea : denies flank pain MSK: denies neck pain, arthralgias, myalgias, reports back pain Skin: denies rash Neuro: denies headaches, numbness, weakness PFSH Medical History IGOR positive (Acute) Bladder distention (Acute) Blood glucose elevated (Acute) Bursitis of right hip (Acute) Carpal tunnel syndrome (Acute) Carpal tunnel syndrome of left wrist (Acute) Cough (Acute) Depression (Chronic) Dysuria (Acute) Elbow pain, right (Acute) Epigastric abdominal pain (Inactive) Fever, unspecified (Acute) GERD (gastroesophageal reflux disease) (Chronic) History of tobacco use (Acute) Hx of eye disorder (Acute) cataract, R eye retina dx Hx of injury (Acute) Plantar fascitis L foot Hx of vertigo (Acute) Hyperlipidemia (Acute) Low back pain (Acute) Plantar fasciitis (Acute) Surgical History section History of cataract surgery (Inactive) 09/06/19 pt denies cataract surgery History of cholecystectomy (Chronic) History of colonoscopy (Chronic) orif right elbow Repair, Rotator Cuff Left Tubal Ligation, Laparoscopic Social History Smoking/Tobacco Use Status: Former Tobacco Use Quit Date: 11/29/99 Alcohol Intake: current Alcohol Intake frequency: a few times a week Alcohol type: beer Drug use: Never Substance use type: does not use Details: quit smoking 18 years ago (2001) Number of Children: 2 number of grandchildren: 2 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 Seatbelt use: always Helmet use: Yes Helmet use: always Working smoke detector in home: Yes Firearms in home: No Do you feel safe at home: Yes Do you feel safe in your relationship?: Yes Exam Narrative Exam Narrative: Constitutional: well and [id number], pleasant, conversing normally HENT: head atraumatic/normocephalic/normal inspection, mucous membranes moist Eyes: conjunctiva normal, sclera normal, pupils 3mm b/l Neck: no stridor, full painless ROM, trachea midline, no cervical spine tenderness palpation Chest: normal inspection Resp: normal work of breathing, LCTAB Cardio: normal rate, normal rhythm, no murmur appreciated GI: abdomen soft, non-tender, non-distended Back: normal inspection, no rash, thoracic paraspinal area tender to palpation bilaterally, reproduces pain, thoracic spine/lumbar spine/lumbar paraspinals/cervical spine nontender to palpation Skin: warm, dry, normal color, no rash Neuro: alert, not altered, grossly non-focal, normal tone Ext: no edema, no posterior calf tenderness to palpation Psych: normal mood, normal affect, normal behavior Course Vital Signs Vital signs: Vital Signs Temperature 36.8 C 12/20/19 09:40 Pulse 68 12/20/19 09:40 Respiratory Rate 14 12/20/19 09:40 Blood Pressure 115/70 12/20/19 09:40 Pulse Oximetry 100 12/20/19 09:40 Temperature 36.8 C 12/20/19 09:40 Temperature Source Skin 12/20/19 09:40 Pulse 64 12/20/19 10:05 Respiratory Rate 14 12/20/19 10:13 Respiratory Effort 12/20/19 10:13 Respiratory Depth Normal 12/20/19 10:13 Respiratory Pattern Normal 12/20/19 10:13 Blood Pressure 121/78 12/20/19 10:05 Pulse Oximetry 98 12/20/19 10:05 Oxygen Delivery Method Room Air 12/20/19 10:05 Oxygen Flow Rate 0 12/20/19 10:05 Pain Level 4 12/20/19 09:40
[2019-12-20 10:33] LABS: Absolute Basophil Count 0.01 k/cumm (0.0-0.2); Absolute Eosinophil Count 0.23 k/cumm (0.0-0.7); Absolute Lymphocyte Count 1.27 k/cumm (1.2-3.4); Absolute Monocyte Count 0.34 k/cumm (0.11-0.7); Absolute Neutrophil Count 2.56 k/cumm (1.2-6.7); Basophils % 0.2; Eosinophils % 5.2; HCT 37.2 % (36.0-46.0); HGB 12.7 g/dL (12.0-15.5); Lymphocytes % 28.8; Mean Corp. HGB Concentration 34.1 g/dL (32.0-36.0); Mean Corpuscular Hemoglobin 29.7 pg (27.0-33.0); Mean Corpuscular Volume 86.9 fL (80-95); Mean Platelet Volume 9.7 fL (8.0-11.0); Monocytes % 7.7; Neutrophils % 58.1; Platelet Count 192 x1000/uL (130-400); RBC 4.28 m/cumm (4.00-5.20); RBC Distribution Width 13.7 % (11.7-14.6); White Blood Cell Count 4.41 k/cumm (4.4-10.8)
--- NOTE | 2019-12-20 10:39 | DI.RAD_ITS ---
EXAM: XR CHEST 2V PA LATERAL CLINICAL HISTORY: SOB. TECHNIQUE: 2D digital imaging was performed. COMPARISON: CHEST 2 VIEWS PA,LAT from 10/29/2015 FINDINGS: LUNGS: Clear. No pleural abnormality seen. HEART: Normal. MEDIASTINUM: Normal. OTHER FINDINGS:Normal. BONE:Normal. IMPRESSION: No acute pulmonary findings.
[2019-12-20 10:52] LABS: ALT 21 U/L (14-59); AST 17 U/L (15-37); Albumin 3.7 g/dL (3.4-5.0); Alkaline Phosphatase 63 U/L (46-116); Anion Gap 8.7 mmol/L (3-11); BUN 16 mg/dL (7-18); Bilirubin, Total 0.3 mg/dL (0.2-1.0); CO2 25.3 mmol/L (21.0-32.0); CREATININE 0.64 mg/dL (0.55-1.02); Calcium 8.5 mg/dL (8.5-10.1); Chloride 107 mmol/L (98-107); Glucose 95 mg/dL (74-106); NT-proBNP 100 pg/mL (<300); Potassium 4.2 mmol/L (3.5-5.1); Sodium 141 mmol/L (136-145); Total Protein 7.5 g/dL (6.4-8.2); Troponin I < 0.05 ng/Ml (<0.06)
[2019-12-20 11:26] LABS: D-Dimer 502 ng/mlFEU (<500)
--- NOTE | 2019-12-20 13:11 | DI.CT_ITS ---
EXAM: CT CHEST PE CTA CLINICAL HISTORY: SOB. TECHNIQUE: Imaging Protocol: Axial CT angiography was performed with multislice acquisition and mul tiplanar and/or 3D reconstructions. CONTRAST MATERIAL: Intravenous: Omnipaque 350 Contrast volume:60 mL contrast route:IV - COMPARISON: No exams were available for comparison FINDINGS: Pulmonary Arteries: No evidence of filling defect to suggest pulmonary emboli. Tracheobronchial tree: Patent where visualized. Mediastinum and Shavon: No dominant adenopathy or fluid collection. Pulmonary parenchyma: Dependent atelectasis in the lung bases. No architectural distortion. Pleura: No effusion or pneumothorax. Heart: The heart is not dilated. Mild coronary artery calcification. No evidence of right heart stra in. No pericardial effusion. Aorta: Atherosclerosis. No evidence of aneurysm or dissection. Upper abdomen: Status post cholecystectomy. Bones: Degenerative changes in the spine. IMPRESSION: No evidence of pulmonary embolism, thoracic aortic aneurysm or dissection. The findings were discussed with the Emergency Department on the date of the examination. DATA REPOSITORY: All CT scans at this facility are submitted to the National Radiology Data Registry (NRDR) Dose Index Registry (DIR) with the [employer] (ACR). RADIATION OPTIMIZATION: All CT scans at this facility use at least one of these dose optimization te chniques: automated exposure control; mA and/or kV adjustment per patient size (includes targeted exa ms where dose is matched to clinical indication); or iterative reconstruction.
[2019-12-20] MEDS: Omnipaque 350 MG/ML 100 ML BTL 60 ML IJ (13:23)
[2019-12-20] MEDS: Normal Saline - Diluent 50 ML VIAL IV (13:24)
[2019-12-20 13:43] LABS: Troponin I < 0.05 ng/Ml (<0.06)
--- NOTE | 2019-12-20 14:14 | NUR.NOTE ---
pt provided with a snack Nursing Note:
== END 2019-12-20 14:45 | disposition home or self-care (01) ==
PROVIDERS: Emergency Provider Student in an Organized Health Care Education/Training Program; PCP Physician Assistant Medical
DX: R06.02 Shortness of breath (principal); R07.89 Other chest pain
CPT/HCPCS: 71275; 80053; 93005; 99285; 71046; 83880; 84484; 85025; 85379; 93010; 99284; J3490

== ENCOUNTER 2019-12-22 10:44 | Outpatient (REF) | payer MEDICAID, SELFPAY | END 2019-12-22 11:04 | LOC: NCHCN 10:44 | PROVIDERS: PCP Physician Assistant Medical; Visit Provider Physician Assistant Medical | DX: R30.0 Dysuria (principal) | CPT/HCPCS: 87086 ==

== ENCOUNTER 2019-12-26 00:29 | Outpatient (CLI) | payer MEDICAID, SELFPAY ==
--- NOTE | 2019-12-26 09:02 | ETT_ITS ---
APPROVED REPORT Exam: Exercise Treadmill Patient Location: Out-Patient Room/Bed: Stress Nurse: Nellie Ivory RN BMI: 28.42 Baseline Rhythm: Sinus rhythm Indications: Chest pain. Pt reports she was seen in our ED last week for chest pain radiating into he r left shoulder blade during the night, it woke her from sleep. Pt has GERD, she reports she was off her Protonix for about 2 weeks prior to this episode. Medical History Medical History: Angina, GERD Cardiac Medications: Aspirin Allergies: metronidazole Cardiac Risk Factors: FHX of CAD, former smoker Exercise History: Physically active Lung Sounds: Clear to auscultation Heart Sounds: Regular Stress Test Details Test: Exercise stress testing was performed using a Dwayne protocol. Rest Stress HR Max Heart Rate (APMHR): 158 bpm Resting HR Supine: 73 bpm Target HR (85% APMHR): 134 bpm Resting HR Standin bpm Max HR Achieved: 164 bpm % of APMHR: 103 Recovery HR: 91 bpm HR response to stress: Normal HR response to stress BP Resting BP Supine: 114/70 mmHg Resting BP Standin/70 mmHg Max BP: 152/74 mmHg Recovery BP: 108/70 mmHg BP response to stress: Normal blood pressure response to stress. ECG Resting ECG: Sinus Rhythm Stress ECG: Sinus Tachycardia ST Change: No significant ST segment changes Arrhythmia: None Recovery ECG: Sinus Rhythm Recovery ST Change: No significant ST segment changes Recovery Arrhythmia: None Clinical Time of Stop for Dwayne: 0830 Reason for Termination: Fatigue Stress Symptoms: General Fatigue, Leg Fatigue Exercise duration: 8 min30 sec Highest Stage Achieved: Stage 3: 3.4 mph at 14% grade. Exercise capacity: 10.16 METs Functional Capacity: Above average capacity Scale: Active Angina Score: None Stress ECG Conclusion 1. Patient exercised for 8 minutes and 30 seconds (10 METS) 2. Exercise was stopped due to fatigue. Patient reached 103% of predicted heart rate. Rate-pressure product was [id number] 3. There is no evidence of ischemia on the ECG portion of this exam. 4. The Thomas Score (8) estimates an annual cardiovascular mortality of 0% and a five year survival of 95%. Using the Thomas Score there is a low probability of any angiographic coronary disease. Protocol Used: Dwayne Protocol Stress Test Summary STAGE Time (mins) Speed (mph) Grade (%) HR BP SYMPTOMS METS Supine 73 114/70 Standing 75 108/70 1 3 1.7 10 110 124/70 4.6 2 6 2.5 12 133 148/74 7 3 9 3.4 14 162 152/74 10.2 1 min recovery 86 124/70 6 min recovery 91 110/70 9 min recovery 108/70
== END 2019-12-26 00:49 ==
PROVIDERS: PCP Physician Assistant Medical; Visit Provider Student in an Organized Health Care Education/Training Program
DX: R07.9 Chest pain, unspecified (principal); R53.83 Other fatigue; K21.9 Gastro-esophageal reflux disease without esophagitis; Z82.49 Family history of ischemic heart disease and other diseases of the circulatory system; Z87.891 Personal history of nicotine dependence
CPT/HCPCS: 93017

== ENCOUNTER 2020-08-20 08:15 | Outpatient (REF) | payer MEDICAID, SELFPAY | END 2020-08-20 08:35 | LOC: NCHCN 08:15 | PROVIDERS: PCP Physician Assistant Medical; Visit Provider Physician Assistant Medical | DX: R10.2 Pelvic and perineal pain (principal) | CPT/HCPCS: 87480; 87510; 87660 ==

== ENCOUNTER 2020-09-06 04:07 | Outpatient (CLI) | payer MEDICAID, SELFPAY ==
--- NOTE | 2020-09-06 | DI.US_ITS ---
EXAM: US PELVIS TRANSVAGINAL CLINICAL HISTORY: PELVIC PAIN, R10.2 TECHNIQUE: Ultrasound performed using standard protocol. COMPARISON: US US RENAL from 08/14/2019 FINDINGS: Pelvic ultrasound was performed transabdominally and transvaginally. Uterus measures 51 x 24 x 37 mi llimeters with a homogeneous 1 millimeter thick endometrial stripe. No free fluid in the cul-de-sac. Unremarkable appearance of the kidneys on limited scanning. Right ovary measures 19 x 10 x 10 millimeters and is unremarkable. Left ovary measures 18 x 10 x 9 millimeters and there is a 9 millimeter simple cyst of the left ovary . IMPRESSION: Small simple cyst of the left ovary, 9 millimeter. No other significant findings. DATA REPOSITORY:
== END 2020-09-06 04:27 ==
PROVIDERS: PCP Physician Assistant Medical; Visit Provider Physician Assistant Medical
DX: N83.292 Other ovarian cyst, left side (principal); R10.2 Pelvic and perineal pain
CPT/HCPCS: 76830; 76856

== ENCOUNTER 2021-04-29 12:24 | Outpatient (REF) | payer MEDICAID, SELFPAY ==
[2021-04-29 11:01] LABS: Bilirubin Negative (Negative); Blood Trace-intact (Negative); Clarity Clear (Clear); Glucose Negative (Negative); Ketones Negative (Negative); Leukocyte Esterase Negative (Negative); Nitrite Negative (Negative); Urobilinogen 0.2 EU/dL (Up TO 0.2)
[2021-04-29 11:16] LABS: Bacteria Negative HPF (Negative); C & S Indicated? No; Casts Negative LPF (Negative); Crystals Negative HPF (Negative); Epithelial Cells Rare HPF (Negative); Mucus Negative (Negative); RBC Negative HPF (0-2); WBC Negative HPF (0-5)
== END 2021-04-29 12:25 | disposition home or self-care (01) ==
LOC: LBN 12:24
PROVIDERS: PCP Physician Assistant Medical; Visit Provider Nurse Practitioner Gerontology
DX: R31.21 Asymptomatic microscopic hematuria (principal)
CPT/HCPCS: 81003; 81015

== ENCOUNTER 2021-05-18 07:17 | Emergency (ER) | payer MEDICAID, SELFPAY ==
[2021-05-18 07:20] VITALS: BP 122/71; PULSE 67; TEMP 36.7; O2SAT 100
[2021-05-18 07:45] LABS: Bilirubin Negative (Negative); Blood Trace-intact (Negative); Clarity Clear (Clear); Glucose Negative (Negative); Ketones Negative (Negative); Leukocyte Esterase Small (Negative); Nitrite Negative (Negative); Specific Gravity 1.015 (1.005-1.025); Urobilinogen 0.2 EU/dL (Up TO 0.2); pH 5.5 (5-8)
[2021-05-18 07:55] LABS: Bacteria Moderate HPF (Negative); C & S Indicated? Yes; Casts Negative LPF (Negative); Crystals Negative HPF (Negative); Epithelial Cells Few HPF (Negative); Mucus Negative (Negative); RBC 0-2 HPF (0-2)
[2021-05-18 07:55] LABS: Abs Immature Grans 0.01 10^3/uL (0.0-0.06); Absolute Basophil Count 0.03 10^3/uL (0.0-0.2); Absolute Eosinophil Count 0.18 10^3/uL (0.0-0.7); Absolute Lymphocyte Count 1.56 10^3/uL (1.2-3.4); Absolute Monocyte Count 0.42 10^3/uL (0.1-0.8); Absolute Neutrophil Count 3.18 10^3/uL (1.2-6.7); Basophils % 0.6; Eosinophils % 3.3; HCT 39.6 % (36.0-46.0); Immature Grans % 0.2; MCH 29.5 pg (27.0-33.0); MCHC 32.8 % (32.0-36.0); MPV 9.3 fL (8.0-11.0); Monocytes % 7.8; Neutrophils % 59.1; Nucleated RBC 0 %; Platelet Count 183 10^3/uL (130-400); RDW 13.1 % (11.7-14.6); RDW-SD 43.1 fL; WBC 5.38 10^3/uL (4.4-10.8)
--- NOTE | 2021-05-18 08:00 | ED.GENADUL_ITS ---
Discharge Plan Disposition Patient Disposition: HOME Condition: Stable Discharge Details Clinical Impression: UTI (urinary tract infection) Primary Care Provider: Shara Burks ED Provider: Ziggy Hightower Home Meds and New Rx's Prescriptions: New sulfamethoxazole-trimethoprim [Bactrim DS] 800-160 mg tablet 1 tab PO BID Qty: 10 RF: 0 phenazopyridine [Pyridium] 200 mg tablet 200 mg PO TID PRNQty: 6 RF: 0 Continued alendronate [Fosamax] 70 mg tablet 70 mg PO QWEEK RF: 0 meclizine 12.5 mg tablet 12.5 mg PO Q6H PRN PRNRF: 0 albuterol sulfate 90 mcg/actuation Hfa Aerosol Inhaler 2 inh INHALATION ONCE PRNRF: 0 loratadine 10 mg Tablet 10 mg PO DAILY PRNRF: 0 aspirin [Aspir-81] 81 MG tablet,delayed release (DR/EC) 1 tab PO DAILY RF: 0 multivitamin 1 EACH capsule 1 cap PO DAILY RF: 0 pantoprazole 40 MG tablet,delayed release (DR/EC) 40 mg PO DAILY PRNRF: 0 vitamin B complex [B-Complex] 1 EACH tablet 1 ea PO DAILY RF: 0 calcium carbonate-vitamin D3 [Calcium 600 with Vitamin D3] 600 mg(1,500mg) - 500 unit Capsule 2 cap PO DAILY RF: 0 ibuprofen 800 MG tablet 800 mg PO TID PRN PRNQty: 60 RF: 0 Discharge Instructions Instructions: Urinary Tract Infection in Women (ED) Additional Instructions: Urinalysis with leuk esterase and 20 white cells, likely UTI, culture and sensitivity pending. Please take Bactrim and Pyridium as directed. Plenty of fluids to avoid dehydration. Vzan-gsk-vicdius medication such as Tylenol and/or Motrin for symptomatic control. Watch for new or worsening symptoms and return to the ER for any concerns. Lastly, I would like you to contact your primary care provider tomorrow to discuss your ongoing symptoms and potential need for outpatient reevaluation. Medical Decision Making 65-year-old female who reports frequent UTIs, presents today reporting the same. Clinically she appears well, nontoxic, is afebrile, abdomen is soft, nontender, no CVA tenderness. Prior to my evaluation, per protocol patient did have an IV started, given IV fluids, Zofran, obtain CBC, CMP and urinalysis. During my evaluation she reports that the Zofran has helped with her nausea. Again she appears well, nontoxic. CBC and CMP are unremarkable, urinalysis reveals trace blood, small leuk esterase, 10-20 white blood cells. Moderate bacteria. Culture pending. Given her urinalysis and her symptoms will initiate antibiotic therapy. Patient reports that typically Bactrim and Pyridium worked very well. Will provide first dose here in the ER. Encourage to follow-up with her urology team, otherwise return to the ER for new or worsening symptoms. Patient comfortable this plan and has no additional questions or concerns. Medical Records Medical records reviewed: Yes I reviewed the patient's medical records. Lab Data Lab results reviewed: Yes I reviewed the patient's lab results. Labs: 05/18/21 07:28 Urine - Reflex from Ua Urine Culture - Pending Laboratory Tests Range/Units 05/18/21 05/18/21 05/18/21 07:28 07:40 07:40 WBC (4.4-10.8) 10^3/uL 5.38 RBC (3.93-5.22) 10^6/uL 4.40 Hgb (11.2-15.7) g/dL 13.0 Hct (36.0-46.0) % 39.6 MCV (80-95) fL 90.0 MCH (27.0-33.0) pg 29.5 MCHC (32.0-36.0) % 32.8 RDW (11.7-14.6) % 13.1 Plt Count (130-400) 10^3/uL 183 MPV (8.0-11.0) fL 9.3 Immature Gran % 0.2 Neutrophils % 59.1 Lymphocytes % 29.0 Monocytes % 7.8 Eosinophils % 3.3 Basophils % 0.6 Nucleated RBC % % 0 Absolute Neutrophils (1.2-6.7) 10^3/uL 3.18 Absolute Lymphocytes (1.2-3.4) 10^3/uL 1.56 Absolute Monocytes (0.1-0.8) 10^3/uL 0.42 Absolute Eosinophils (0.0-0.7) 10^3/uL 0.18 Absolute Basophils (0.0-0.2) 10^3/uL 0.03 Sodium (136-145) mmol/L 140 Potassium (3.5-5.1) mmol/L 3.7 Chloride (98-107) mmol/L 105 Carbon Dioxide (21.0-32.0) mmol/L 26.6 Anion Gap (3-11) mmol/L 8.4 BUN (7-18) mg/dL 17 Creatinine (0.55-1.02) mg/dL 0.9 Estimated GFR/1.73 m2 (mL/min/1.73m2) >= 60.00 Glucose (74-106) mg/dL 88 Calcium (8.5-10.1) mg/dL 8.7 Total Bilirubin (0.2-1.0) mg/dL 0.3 AST (15-37) U/L 13 L ALT (14-59) U/L 21 Alkaline Phosphatase (46-116) U/L 64 Total Protein (6.4-8.2) g/dL 7.9 Albumin (3.4-5.0) g/dL 3.7 Urine Color (Yellow) Yellow Urine Clarity (Clear) Clear Urine pH (5-8) 5.5 Ur Specific [place] (1.005-1.025) 1.015 Urine Protein (Negative) mg/dL Negative Urine Ketones (Negative) mg/dL Negative Urine Blood (Negative) Trace-intact H Urine Nitrite (Negative) Negative Urine Bilirubin (Negative) Negative Urine Urobilinogen (Up TO 0.2) EU/dL 0.2 Ur Leukocyte Esterase (Negative) Small H Urine RBC (0-2) HPF 0-2 Urine WBC (0-5) HPF 10-20 H Ur Epithelial Cells (Negative) HPF Few Urine Crystals (Negative) HPF Negative Urine Bacteria (Negative) HPF Moderate Urine Casts (Negative) LPF Negative Urine Mucus (Negative) Negative Ur Culture Indicated? Yes Urine Glucose (Negative) mg/dL Negative HPI General Mode of arrival: ambulatory . Date/Time Provider Initiated Documentation: 05/18/21 07:18 . Limitations to Documentation: no limitations . Information obtained by: patient . HPI Narrative: This is a 65-year-old female, past medical history of bladder distention, depression, GERD, former smoker, chronic low back pain, recurrent UTIs, is followed by urology, presenting to the ER today reporting approximately 3-week history of UTI-like symptoms. She reports initially they were intermittent, she was initially seen by urology, urinalysis showed microscopic blood, but no infection. Since that time she reports her symptoms have become more constant, now associated with nausea and she wakes up in middle of the night feeling warm. She reports mild right flank discomfort, urinary frequency, dysuria. She denies recent illness or trauma. She denies definitive fever, headache, vomiting, abdominal pain, hematuria, vaginal discharge or bleeding, diarrhea or constipation. Patient reports this feels very similar to her previous UTIs. Related Data Home Medications Medication Instructions Recorded Confirmed aspirin [Aspir-81] 1 tab PO DAILY 01/09/15 05/18/21 multivitamin 1 cap PO DAILY 01/09/15 05/18/21 pantoprazole 40 mg PO DAILY PRN 05/25/17 05/18/21 vitamin B complex [B-Complex] 1 ea PO DAILY 05/25/17 05/18/21 meclizine 12.5 mg tablet 12.5 mg PO Q6H PRN PRN tab 08/09/19 05/18/21 calcium carbonate-vitamin D3 2 cap PO DAILY 08/29/19 05/18/21 [Calcium 600 with Vitamin D3] ibuprofen 800 mg PO TID PRN PRN #60 tab 09/06/19 05/18/21 albuterol sulfate 2 inh INHALATION ONCE PRN 10/23/19 05/18/21 loratadine 10 mg PO DAILY PRN 10/23/19 05/18/21 alendronate 70 mg tablet 70 mg PO QWEEK 11/16/19 05/18/21 phenazopyridine [Pyridium] 200 mg PO TID PRN #6 tab 05/18/21 sulfamethoxazole-trimethoprim 1 tab PO BID #10 tab 05/18/21 [Bactrim DS] Previous Rx's Medication Instructions Recorded ibuprofen 800 mg PO TID PRN PRN #60 tab 09/06/19 phenazopyridine [Pyridium] 200 mg PO TID PRN #6 tab 05/18/21 sulfamethoxazole-trimethoprim 1 tab PO BID #10 tab 05/18/21 [Bactrim DS] Allergies Allergy/AdvReac Type Severity Reaction Status Date / Time metronidazole [From Flagyl] AdvReac Intermediate rash, Verified 05/18/21 07:27 bleeding General Stated Complaint: FlankPain CHLOE: 3 Review of Systems Constitutional Constitutional: Denies fever(s) and Denies headache(s) ENT Ears, Nose, Mouth, and Throat: Denies headache(s) Cardiovascular Cardiovascular: Denies chest pain Respiratory Respiratory: Denies cough Gastrointestinal Gastrointestinal: Denies abdominal pain, Reports nausea and Denies vomiting Genitourinary Genitourinary: Denies abnormal vaginal bleeding, Reports dysuria, Reports urinary urgency and Denies vaginal discharge Musculoskeletal Musculoskeletal: Reports back pain (Chronic) Integumentary/Breasts Skin/Breast: Denies rash Neurologic Neurologic: Denies headache(s) PENDING SALE TO [facility] Medical History IGOR positive Bladder distention Blood glucose elevated Bursitis of right hip Carpal tunnel syndrome Carpal tunnel syndrome of left wrist Cough Depression Dysuria Elbow pain, right Epigastric abdominal pain Fever, unspecified GERD (gastroesophageal reflux disease) History of tobacco use Hx of eye disorder cataract, R eye retina dx Hx of injury Plantar fascitis L foot Hx of vertigo Hyperlipidemia Low back pain Plantar fasciitis Surgical History section History of cataract surgery 09/06/19 pt denies cataract surgery History of cholecystectomy History of colonoscopy orif right elbow Repair, Rotator Cuff Left Tubal Ligation, Laparoscopic Family History Mother CHF (congestive heart failure) Father Diabetes CHF (congestive heart failure) Cataract Hypertension Brother [place] (mitral incompetence) CAD (coronary artery disease) Schizophrenia Hx of CABG Brother Diverticulosis Bipolar 1 disorder Brother No problems noted. Son No problems noted. Son No problems noted. 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 Seatbelt use: always Helmet use: Yes Helmet use: always Working smoke detector in home: Yes Firearms in home: No Do you feel safe at home: Yes Do you feel safe in your relationship?: Yes Exam Const General: cooperative, healthy appearing, comfortable and no acute distress Orientation: alert and awake HENMT Head: normal to inspection, normocephalic and atraumatic Face and sinus: normal facial exam Mouth: moist mucous membranes Eyes General: appearance normal, both eyes and all related structures Conjunctivae: conjunctivae normal Neck Neck: normal visual inspection, trachea midline and supple Resp Effort & Inspection: normal respiratory effort and able to speak in complete sentences Auscultation: clear to auscultation bilaterally Cardio Rate: regular rate Rhythm: regular rhythm GI Inspection: normal to inspection Palpation: soft, not firm, no guarding, no pulsatile masses and nontender Auscultation: normal bowel sounds Back/Spine/Pelvis Back: no CVA tenderness and back tenderness (Diffuse mild lumbar, slightly worse in the right) Skin General skin exam: no rashes or lesions noted Neuro General: patient alert, patient awake, moves all extremities and no focal motor deficits Cognition: normal cognition Speech: speech normal Gait: normal gait Sensory Exam: no sensory deficits noted Psych Appearance: grossly normal Mental Status: mental status grossly normal Course Vital Signs Vital signs: Vital Signs Temperature 36.7 C 05/18/21 07:20 Pulse 67 05/18/21 07:20 Blood Pressure 122/71 05/18/21 07:20 Pulse Oximetry 100 05/18/21 07:20 Temperature 36.7 C 05/18/21 07:20 Temperature Source Temporal Artery Scan 05/18/21 07:20 Pulse 67 05/18/21 07:20 Respiratory Effort Non-Labored 05/18/21 07:25 Blood Pressure 122/71 05/18/21 07:20 Blood Pressure Position Sitting 05/18/21 07:20 Pulse Oximetry 100 05/18/21 07:20 Oxygen Delivery Method Room Air 05/18/21 07:20 Oxygen Flow Rate 0 05/18/21 07:20 Pain Level 9 05/18/21 07:26 Lab/Test Results Lab/Test Results: 05/18/21 07:28 Urine - Reflex from Ua Urine Culture - Pending Laboratory Tests Range/Units 05/18/21 05/18/21 07:28 07:40 WBC (4.4-10.8) 10^3/uL 5.38 RBC (3.93-5.22) 10^6/uL 4.40 Hgb (11.2-15.7) g/dL 13.0 Hct (36.0-46.0) % 39.6 MCV (80-95) fL 90.0 MCH (27.0-33.0) pg 29.5 MCHC (32.0-36.0) % 32.8 RDW (11.7-14.6) % 13.1 Plt Count (130-400) 10^3/uL 183 MPV (8.0-11.0) fL 9.3 Immature Gran % 0.2 Neutrophils % 59.1 Lymphocytes % 29.0 Monocytes % 7.8 Eosinophils % 3.3 Basophils % 0.6 Nucleated RBC % % 0 Absolute Neutrophils (1.2-6.7) 10^3/uL 3.18 Absolute Lymphocytes (1.2-3.4) 10^3/uL 1.56 Absolute Monocytes (0.1-0.8) 10^3/uL 0.42 Absolute Eosinophils (0.0-0.7) 10^3/uL 0.18 Absolute Basophils (0.0-0.2) 10^3/uL 0.03 Urine Color (Yellow) Yellow Urine Clarity (Clear) Clear Urine pH (5-8) 5.5 Ur Specific [place] (1.005-1.025) 1.015 Urine Protein (Negative) mg/dL Negative Urine Ketones (Negative) mg/dL Negative Urine Blood (Negative) Trace-intact H Urine Nitrite (Negative) Negative Urine Bilirubin (Negative) Negative Urine Urobilinogen (Up TO 0.2) EU/dL 0.2 Ur Leukocyte Esterase (Negative) Small H Urine RBC (0-2) HPF 0-2 Urine WBC (0-5) HPF 10-20 H Ur Epithelial Cells (Negative) HPF Few Urine Crystals (Negative) HPF Negative Urine Bacteria (Negative) HPF Moderate Urine Casts (Negative) LPF Negative Urine Mucus (Negative) Negative Ur Culture Indicated? Yes Urine Glucose (Negative) mg/dL Negative
[2021-05-18] MEDS: Ondansetron 4 MG/2 ML VIAL IVP (08:02)
[2021-05-18] MEDS: Normal Saline 1,000 ML 1000 ML IV (08:03)
[2021-05-18 08:13] LABS: ALT 21 U/L (14-59); AST 13 U/L (15-37); Albumin 3.7 g/dL (3.4-5.0); Alkaline Phosphatase 64 U/L (46-116); Anion Gap 8.4 mmol/L (3-11); BUN 17 mg/dL (7-18); Bilirubin, Total 0.3 mg/dL (0.2-1.0); CO2 26.6 mmol/L (21.0-32.0); CREATININE 0.9 mg/dL (0.55-1.02); Calcium 8.7 mg/dL (8.5-10.1); Chloride 105 mmol/L (98-107); Glucose 88 mg/dL (74-106); Potassium 3.7 mmol/L (3.5-5.1); Sodium 140 mmol/L (136-145); Total Protein 7.9 g/dL (6.4-8.2)
[2021-05-18] MEDS: Sulfameth/Trimeth DS TAB 1 TAB PO (08:32)
[2021-05-18] MEDS: Phenazopyridine 200 MG TAB PO (08:32)
== END 2021-05-18 08:54 | disposition home or self-care (01) ==
PROVIDERS: Emergency Medicine; Emergency Provider Physician Assistant; PCP Physician Assistant Medical
DX: N39.0 Urinary tract infection, site not specified (principal)
CPT/HCPCS: 36415; 80053; 96361; 96374; 99284; 81003; 81015; 85025; 87086; 99283; J2405

== ENCOUNTER 2021-06-02 14:35 | Emergency (ER) | payer MEDICAID, SELFPAY ==
[2021-06-02 14:45] VITALS: BP 108/58; PULSE 72; RESP 16; TEMP 36.7; O2SAT 99
--- NOTE | 2021-06-02 15:00 | DI.RAD_ITS ---
Exam(s) XR RIBS LT W PA LAT CHEST EXAM: XR RIBS LT W PA LAT CHEST CLINICAL HISTORY: s/p fall, r/o acute fracture TECHNIQUE: 2D digital imaging was performed. COMPARISON: CR XR CHEST 2V PA LATERAL from 12/20/2019 FINDINGS: MEDIASTINUM: Normal. HEART: Normal. PULMONARY VASCULATURE: Normal. LUNGS: Clear. PLEURAL SPACE: No pleural effusion or pneumothorax. BONE:There are degenerative changes in the left or. There has been resection of the distal left clav icle. There is a mild left convex scoliosis of the thoracic spine. Degenerative changes are seen in the spine. LEFT RIBS: Normal. OTHER FINDINGS:Normal. IMPRESSION: 1. No acute pulmonary findings. 2. No displaced left rib fracture. DATA REPOSITORY: RADIATION DOSE DELIVERED:
--- NOTE | 2021-06-02 15:05 | W.ED.GENAD ---
Discharge Plan Disposition Patient Disposition: HOME Condition: Stable Discharge Details Clinical Impression: Rib contusion Primary Care Provider: Shara Burks ED Provider: Zhanna Jain Home Meds and New Rx's Prescriptions: Continued alendronate [Fosamax] 70 mg tablet 70 mg PO QWEEK RF: 0 meclizine 12.5 mg tablet 12.5 mg PO Q6H PRN PRNRF: 0 albuterol sulfate 90 mcg/actuation Hfa Aerosol Inhaler 2 inh INHALATION ONCE PRNRF: 0 loratadine 10 mg Tablet 10 mg PO DAILY PRNRF: 0 aspirin [Aspir-81] 81 MG tablet,delayed release (DR/EC) 1 tab PO DAILY RF: 0 multivitamin 1 EACH capsule 1 cap PO DAILY RF: 0 pantoprazole 40 MG tablet,delayed release (DR/EC) 40 mg PO DAILY PRNRF: 0 vitamin B complex [B-Complex] 1 EACH tablet 1 ea PO DAILY RF: 0 calcium carbonate-vitamin D3 [Calcium 600 with Vitamin D3] 600 mg(1,500mg) -500 unit Capsule 2 cap PO DAILY RF: 0 ibuprofen 800 MG tablet 800 mg PO TID PRN PRNQty: 60 RF: 0 phenazopyridine [Pyridium] 200 mg tablet 200 mg PO TID PRNQty: 6 RF: 0 Discharge Instructions Instructions: Rib Contusion (ED) Additional Instructions: Your x-ray today did not note any evidence of a rib fracture. A rib fracture or a bruise is treated the same with pain control, rest, ice and making sure to take deep breaths to prevent the development of pneumonia. Use the incentive parameter as directed to ensure that you take deep breaths to prevent the development of pneumonia. Drink plenty of fluids and get plenty of rest. Alternate tylenol and motrin as needed and directed for pain. Take the oxycodone for pain not relieved with Tylenol or Motrin. Follow-up with your primary care doctor in 1 week. Return to the emergency department with any worsening or new concerning symptoms. Discharge Data Discharge Physician: Zhanna Jain Medical Decision Making 55-year-old female presents with left anterior chest and rib pain after fall 2 days ago in which she fell directly onto a bucket. She is now presenting with continued pain. Denies difficulty breathing, vomiting or abdominal pain. Vitals within normal limits. Lungs clear bilaterally. She has tenderness to palpation of left anterior inferior ribs below breast. No abdominal tenderness. Consider rib contusion versus fracture. Will obtain an x-ray. Patient states she drove herself here and does not want pain medication. X-rays reviewed and negative. Patient states she is quite uncomfortable with driving, sitting and sleeping. We will send with 4 tabs of oxycodone. Advised to follow up with the primary care doctor for re-evaluation. Usual and customary return precautions given prior to discharge. Medical Records Medical records reviewed: Yes I reviewed the patient's medical records. Imaging Data Radiologic Study: Radiologist's impression: XR Left Ribs Exam date and time: 06/02/2021 3:06 PM Age: 65 years old Clinical indication: Injury or trauma; Blunt trauma (contusions or hematomas); Rib area; Patient HX: Anterior mid right rib pain, S/P fall TECHNIQUE: Imaging protocol: XR Left ribs. Views: 2 views. COMPARISON: CR XR CHEST 2V PA LATERAL 12/20/2019 10:33 AM FINDINGS: Bones/joints: No rib fracture identified. Soft tissues: Normal. IMPRESSION: No acute findings XR Chest Exam date and time: 06/02/2021 3:06 PM Age: 65 years old Clinical indication: Injury or trauma; Blunt trauma (contusions or hematomas); Rib area; Patient HX: Anterior mid right rib pain, S/P fall TECHNIQUE: Imaging protocol: XR of the chest. Views: 2 views. COMPARISON: CR XR CHEST 2V PA LATERAL 12/20/2019 10:33 AM FINDINGS: Lungs: Unremarkable. No consolidation. Pleural spaces: Unremarkable. No pleural effusion. No pneumothorax. Heart/Mediastinum: Unremarkable. No cardiomegaly. Vasculature: Aortic calcifications. Bones/joints: Degenerative arthritis shoulders and spine. Resection of the distal left clavicle. IMPRESSION: No acute findings Lab Data Lab results reviewed: Yes I reviewed the patient's lab results. HPI General Mode of arrival: ambulatory. Date/Time Provider Initiated Documentation: 06/02/21 14:56. Limitations to Documentation: no limitations. Information obtained by: patient. HPI Narrative: Patient is a 65-year-old female presents with left anterior chest and rib pain after a fall with direct injury to a bucket. Patient states she was working outside and carrying a 5 gallon bucket up a hill when she slipped and hit her left chest and ribs directly on the entire cervical portion of the bucket. She states she has had continued pain since then, but worse since yesterday. She denies difficulty breathing, abdominal pain or vomiting. She has 800 mg of ibuprofen up to 3 times daily as needed. Related Data Home Medications Medication Instructions Recorded Confirmed aspirin [Aspir-81] 1 tab PO DAILY 01/09/15 06/02/21 multivitamin 1 cap PO DAILY 01/09/15 06/02/21 pantoprazole 40 mg PO DAILY PRN 05/25/17 06/02/21 vitamin B complex [B-Complex] 1 ea PO DAILY 05/25/17 06/02/21 meclizine 12.5 mg tablet 12.5 mg PO Q6H PRN PRN tab 08/09/19 06/02/21 calcium carbonate-vitamin D3 2 cap PO DAILY 08/29/19 06/02/21 [Calcium 600 with Vitamin D3] ibuprofen 800 mg PO TID PRN PRN #60 tab 09/06/19 06/02/21 albuterol sulfate 2 inh INHALATION ONCE PRN 10/23/19 06/02/21 loratadine 10 mg PO DAILY PRN 10/23/19 06/02/21 alendronate 70 mg tablet 70 mg PO QWEEK 11/16/19 06/02/21 phenazopyridine [Pyridium] 200 mg PO TID PRN #6 tab 05/18/21 06/02/21 Previous Rx's Medication Instructions Recorded ibuprofen 800 mg PO TID PRN PRN #60 tab 09/06/19 phenazopyridine [Pyridium] 200 mg PO TID PRN #6 tab 05/18/21 Allergies Allergy/AdvReac Type Severity Reaction Status Date / Time metronidazole [From Flagyl] AdvReac Intermediate rash, Verified 06/02/21 14:51 bleeding General Stated Complaint: Chest/Rib CHLOE: 3 Review of Systems All systems reviewed & are unremarkable except as noted in HPI and below Constitutional Constitutional: Reports as per HPI, Denies chills and Denies fever(s) Eyes Eyes: Denies blurry vision ENT Ears, Nose, Mouth, and Throat: Denies dizziness, Denies sore throat and Denies throat swelling Cardiovascular Cardiovascular: Denies chest pain and Denies dyspnea Respiratory Respiratory: Denies cough and Denies dyspnea Gastrointestinal Gastrointestinal: Denies abdominal pain, Denies diarrhea and Denies vomiting Genitourinary Genitourinary: Denies hematuria and Denies dysuria Musculoskeletal Musculoskeletal: Denies back pain and Denies numbness Integumentary/Breasts Skin/Breast: Denies lesions and Denies rash Neurologic Neurologic: Denies dizziness, Denies localized weakness and Denies numbness Allergic/Immunologic Allergic/Immunologic: Denies throat swelling [facility] Medical History (Updated 06/02/21 @ 15:54 by Zhanna Jain DO) IGOR positive Bladder distention Blood glucose elevated Bursitis of right hip Carpal tunnel syndrome Carpal tunnel syndrome of left wrist Cough Depression Dysuria Elbow pain, right Epigastric abdominal pain Fever, unspecified GERD (gastroesophageal reflux disease) History of tobacco use Hx of eye disorder cataract, R eye retina dx Hx of injury Plantar fascitis L foot Hx of vertigo Hyperlipidemia Low back pain Plantar fasciitis Surgical History section History of cataract surgery 09/06/19 pt denies cataract surgery History of cholecystectomy History of colonoscopy orif right elbow Repair, Rotator Cuff Left Tubal Ligation, Laparoscopic Family History Mother CHF (congestive heart failure) Father Diabetes CHF (congestive heart failure) Cataract Hypertension Brother PR (mitral incompetence) CAD (coronary artery disease) Schizophrenia Hx of CABG Brother Diverticulosis Bipolar 1 disorder Brother No problems noted. Son No problems noted. Son No problems noted. 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 Seatbelt use: always Helmet use: Yes Helmet use: always Working smoke detector in home: Yes Firearms in home: No Do you feel safe at home: Yes Do you feel safe in your relationship?: Yes Exam Const General: cooperative, healthy appearing and no acute distress HENMT Head: normal to inspection Face and sinus: normal facial exam Eyes General: appearance normal, both eyes and all related structures EOM: EOM intact bilaterally Neck Neck: normal visual inspection and No submandibular swelling Lymphatic: no lymphadenopathy noted Chest Chest: no tenderness Chest/axillae images: 1. Tenderness to palpation with healing ecchymosis noted to left anterior inferior ribs. There is no crepitus, rash or lesions. Resp Effort & Inspection: normal respiratory effort and able to speak in complete sentences Auscultation: clear to auscultation bilaterally Cardio Rate: regular rate Rhythm: regular rhythm GI Inspection: normal to inspection and no abdominal wall ecchymosis Palpation: soft, not firm, not rigid and nontender Auscultation: normal bowel sounds Back/Spine/Pelvis Pelvis: no pain with anterior-posterior compression Neuro General: patient alert, patient awake and patient oriented x3 Cognition: normal cognition Speech: speech normal Motor: muscle tone normal throughout Sensory Exam: no sensory deficits noted Extrem General: normal to inspection, full ROM, capillary refill normal, no calf tenderness bilaterally and no edema Psych Appearance: grossly normal Mental Status: mental status grossly normal Speech and Movement: speech and movement normal Affect: normal affect Course Vital Signs Vital signs: Vital Signs Temperature 98.1 F 06/02/21 14:45 Pulse 72 06/02/21 14:45 Respiratory Rate 16 06/02/21 14:45 Blood Pressure 108/58 L 06/02/21 14:45 Pulse Oximetry 99 06/02/21 14:45 Temperature 98.1 F 06/02/21 14:45 Temperature Source Skin 06/02/21 14:45 Pulse 72 06/02/21 14:45 Respiratory Rate 16 06/02/21 14:45 Respiratory Effort Non-Labored 06/02/21 14:45 Blood Pressure 108/58 L 06/02/21 14:45 Blood Pressure Position Sitting 06/02/21 14:45 Pulse Oximetry 99 06/02/21 14:45 Oxygen Delivery Method Room Air 06/02/21 14:45 Oxygen Flow Rate 0 06/02/21 14:45 Pain Level 9 06/02/21 14:45
--- NOTE | 2021-06-02 15:52 | DI.VRAD_ITS ---
PROCEDURE INFORMATION: Exam: XR Left Ribs Exam date and time: 06/02/2021 3:06 PM Age: 65 years old Clinical indication: Injury or trauma; Blunt trauma (contusions or hematomas); Rib area; Patient HX: Anterior mid right rib pain, S/P fall TECHNIQUE: Imaging protocol: XR Left ribs. Views: 2 views. COMPARISON: CR XR CHEST 2V PA LATERAL 12/20/2019 10:33 AM FINDINGS: Bones/joints: No rib fracture identified. Soft tissues: Normal. IMPRESSION: No acute findings PROCEDURE INFORMATION: Exam: XR Chest Exam date and time: 06/02/2021 3:06 PM Age: 65 years old Clinical indication: Injury or trauma; Blunt trauma (contusions or hematomas); Rib area; Patient HX: Anterior mid right rib pain, S/P fall TECHNIQUE: Imaging protocol: XR of the chest. Views: 2 views. COMPARISON: CR XR CHEST 2V PA LATERAL 12/20/2019 10:33 AM FINDINGS: Lungs: Unremarkable. No consolidation. Pleural spaces: Unremarkable. No pleural effusion. No pneumothorax. Heart/Mediastinum: Unremarkable. No cardiomegaly. Vasculature: Aortic calcifications. Bones/joints: Degenerative arthritis shoulders and spine. Resection of the distal left clavicle. IMPRESSION: No acute findings Dictated and Authenticated by: eBcky Acosta MD. Ordering:JUAN Chao MD
== END 2021-06-02 16:13 | disposition home or self-care (01) ==
PROVIDERS: Emergency Provider Physician Assistant; PCP Physician Assistant Medical
DX: S20.212A Contusion of left front wall of thorax, initial encounter (principal); W10.2XXA Fall (on)(from) incline, initial encounter
CPT/HCPCS: 99283; 71046; 71100

== ENCOUNTER 2021-11-05 11:42 | Outpatient (REF) | payer MEDICAID, SELFPAY ==
[2021-11-07 14:16] LABS: COVID-19 RT-PCR UVMMC Result Negative (Negative)
== END 2021-11-05 11:43 | disposition home or self-care (01) ==
LOC: LBN 11:42
PROVIDERS: PCP Physician Assistant Medical; Visit Provider Nurse Practitioner Family
DX: Z20.822 Contact with and (suspected) exposure to COVID-19 (principal); Z87.440 Personal history of urinary (tract) infections
CPT/HCPCS: U0003; 87086

== ENCOUNTER 2022-04-13 14:20 | Emergency (ER) | payer MEDICAID, SELFPAY ==
--- NOTE | 2022-04-13 14:15 | RT.EKG_ITS ---
APPROVED REPORT Exam: Resting ECG Reason for Exam: back pain/sob Patient Location: E HR:74 bpm ECG Measurements Heart Rate 74 AXIS MI 150 P 64 QRSd 72 QRS 47 QT 383 T 16 QTc 424 Conclusion Sinus rhythm...normal P axis, V-rate 60- 99 sinus rhythm at 74, normal axis, no STEMI, nondiagnostic EKG
[2022-04-13 14:31] VITALS: BP 114/73; PULSE 80; RESP 15; TEMP 36.3; O2SAT 98
--- NOTE | 2022-04-13 15:45 | DI.CT_ITS ---
Exam(s) CT THORACIC SPINE WO EXAM: CT THORACIC SPINE WO CLINICAL HISTORY: focal pain at approximately T5 level, no trauma. TECHNIQUE: Imaging Protocol: Axial computed tomography images with coronal and sagittal reformatted images were created and reviewed. CONTRAST MATERIAL: Intravenous: None COMPARISON: No exams were available for comparison FINDINGS: There are no fractures but there is mild grade 1 anterolisthesis of T2 upon T3 and T3 upon 3 4, this related to facet arthropathy at these 2 levels. There is no facet malalignment at these levels. No other levels exhibiting listhesis. No evidence of significant central spinal canal stenosis. No for aminal stenosis. No significant osseous lesions. No obvious significant disc herniations. No evidence of spinal nor paraspinal mass nor abnormal fluid collection. IMPRESSION: No fracture or osseous lesions in the thoracic spinal column. There is mild degenerative anterolisthesis of T2 upon T3 and T3 upon T4, this related to facet arthro obey at these 2 levels. There is no facet malalignment evident. RADIATION DOSE DELIVERED: 591.95mGy.cm Total DLP DATA REPOSITORY: All CT scans at this facility are submitted to the National Radiology Data Registry (NRDR) Dose Index Registry (DIR) with the [employer] (ACR). RADIATION OPTIMIZATION: All CT scans at this facility use at least one of these dose optimization te chniques: automated exposure control; mA and/or kV adjustment per patient size (includes targeted exa ms where dose is matched to clinical indication); or iterative reconstruction.
--- NOTE | 2022-04-13 15:58 | W.ED.GENAD ---
Discharge Plan Discharge Details Chief Complaint: SOB Primary Care Provider: Shara Burks ED Provider: Darlene Maguire Home Meds and New Rx's Prescriptions: No Action alendronate [Fosamax] 70 mg tablet 70 mg PO QWEEK meclizine 12.5 mg tablet 12.5 mg PO Q6H PRN PRN albuterol sulfate 90 mcg/actuation Hfa Aerosol Inhaler 2 inh INHALATION ONCE PRN loratadine 10 mg Tablet 10 mg PO DAILY PRN aspirin [Aspir-81] 81 MG tablet,delayed release (DR/EC) 1 tab PO DAILY multivitamin 1 EACH capsule 1 cap PO DAILY pantoprazole 40 MG tablet,delayed release (DR/EC) 40 mg PO DAILY PRN vitamin B complex [B-Complex] 1 EACH tablet 1 ea PO DAILY calcium carbonate-vitamin D3 [Calcium 600 with Vitamin D3] 600 mg(1,500mg) -500 unit Capsule 2 cap PO DAILY ibuprofen 800 MG tablet 800 mg PO TID PRN PRNQty: 60 0RF phenazopyridine [Pyridium] 200 mg tablet 200 mg PO TID PRNQty: 6 0RF Medical Decision Making Ellie Chauhan is a 66-year-old woman with with history of osteoporosis presenting to emergency department back pain. Patient reports that she woke up at approximately 3:00 in the morning with middle back pain. Patient reports that she took ibuprofen and was able to go back to sleep, but today back pain returned. She reports that pain is worse with changing positions. Patient reports that she has osteoporosis in her spine and has had pain in this area of her back in the past, but not as severe. She reports that this pain in her back has been intermittently present over the past 2 months but now much worse. She reports that she fell 2 weeks ago, denies any other trauma or known inciting event. Patient reports that she had a typical day yesterday without issue. She denies other new pain, fever, cough, shortness of breath, vomiting, diarrhea, weakness, new numbness, rash. Patient reports chronic tingling in both her feet that is unchanged. She denies urinary changes. She denies any recent surgeries or other procedures. On exam patient is very well and nontoxic-appearing. There is focal point tenderness that reproduces pain over T5, no other abnormality of the back exam. Concern for compression fracture, thoracic bony pathology, other. Exam/history at this time is not consistent with acute aortic process, epidural abscess, epidural hematoma, spinal cord compression, pancreatitis, other acute emergent intra-abdominal process. Plan for CT thoracic spine, EKG obtained in triage. Patient signed out to Dr. Eleazar Bey at time of shift change with CT, reassessment pending. ECG Data Attestation: I personally reviewed and interpreted this ECG (s) as follows: Interpretation: EKG shows sinus rhythm at 74, normal axis, no STEMI, nondiagnostic EKG HPI General Date/Time Provider Initiated Documentation: 04/13/22 14:58. Limitations to Documentation: no limitations. Information obtained by: patient, RN notes reviewed and old records reviewed. HPI Narrative: Ellie Chauhan is a 66-year-old woman with with history of osteoporosis presenting to emergency department back pain. Patient reports that she woke up at approximately 3:00 in the morning with middle back pain. Patient reports that she took ibuprofen and was able to go back to sleep, but today back pain returned. She reports that pain is worse with changing positions. Patient reports that she has osteoporosis in her spine and has had pain in this area of her back in the past, but not as severe. She reports that this pain in her back has been intermittently present over the past 2 months but now much worse. She reports that she fell 2 weeks ago, denies any other trauma or known inciting event. Patient reports that she had a typical day yesterday without issue. She denies other new pain, fever, cough, shortness of breath, vomiting, diarrhea, weakness, new numbness, rash. Patient reports chronic tingling in both her feet that is unchanged. She denies urinary changes. She denies any recent surgeries or other procedures. Contrary to triage note, patient states specifically denies shortness of breath, or other pain, states that she feels that the pain occasionally takes her breath away. Related Data Home Medications Medication Instructions Recorded Confirmed aspirin 81 mg tablet,delayed 1 tab PO DAILY 01/09/15 06/02/21 release (Aspir-) multivitamin 1 cap PO DAILY 01/09/15 06/02/21 pantoprazole 40 mg tablet,delayed 40 mg PO DAILY PRN 05/25/17 06/02/21 release vitamin B complex (B-Complex 1 ea PO DAILY 05/25/17 06/02/21 tablet) meclizine 12.5 mg tablet 12.5 mg PO Q6H PRN PRN 08/09/19 06/02/21 calcium carbonate 600 mg-vitamin 2 cap PO DAILY 08/29/19 06/02/21 D3 12.5 mcg (500 unit) capsule (Calcium 600 with Vitamin D3) ibuprofen 800 mg tablet 800 mg PO TID PRN PRN #60 tabs 09/06/19 06/02/21 albuterol sulfate 90 mcg/actuation 2 inh inhalation ONCE PRN 10/23/19 06/02/21 aerosol inhaler loratadine 10 mg tablet 10 mg PO DAILY PRN 10/23/19 06/02/21 alendronate 70 mg tablet (Fosamax) 70 mg PO QWEEK 11/16/19 06/02/21 phenazopyridine 200 mg tablet 200 mg PO TID PRN 6 doses #6 tabs 05/18/21 06/02/21 (Pyridium) Previous Rx's Medication Instructions Recorded ibuprofen 800 mg tablet 800 mg PO TID PRN PRN #60 tabs 09/06/19 phenazopyridine 200 mg tablet 200 mg PO TID PRN 6 doses #6 tabs 05/18/21 (Pyridium) Allergies Allergy/AdvReac Type Severity Reaction Status Date / Time metronidazole [From Flagyl] AdvReac Intermediate rash, Verified 06/02/21 14:51 bleeding General Stated Complaint: SOB CHLOE: 2 Review of Systems Narrative: Constitutional: denies fevers Eyes: denies eye pain ENT: denies ear pain, dental pain, sore throat Cardiovascular: denies chest pain, edema Respiratory: denies SOB, cough GI: denies abdominal pain, vomiting, diarrhea : denies flank pain MSK: denies arthralgias, myalgias, reports back pain Skin: denies rash Neuro: denies headaches, numbness, weakness PFSH All Active Problems UTI (urinary tract infection) (Acute) Rib contusion (Acute) Bladder distention (Acute) Right upper extremity numbness (Acute) Right radial head fracture (Acute) 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 Cubital tunnel syndrome on right (Acute) Medical History IGOR positive Blood glucose elevated Bursitis of right hip Carpal tunnel syndrome Carpal tunnel syndrome of left wrist Cough Depression Dysuria Elbow pain, right Epigastric abdominal pain Fever, unspecified GERD (gastroesophageal reflux disease) History of tobacco use Hx of eye disorder cataract, R eye retina dx Hx of injury Plantar fascitis L foot Hx of vertigo Hyperlipidemia Low back pain Plantar fasciitis Surgical History section History of cataract surgery 09/06/19 pt denies cataract surgery History of cholecystectomy History of colonoscopy orif right elbow Repair, Rotator Cuff Left Tubal Ligation, Laparoscopic Family History Mother CHF (congestive heart failure) Father Diabetes CHF (congestive heart failure) Cataract Hypertension Brother [place] (mitral incompetence) CAD (coronary artery disease) Schizophrenia Hx of CABG Brother Diverticulosis Bipolar 1 disorder Brother No problems noted. Son No problems noted. Son No problems noted. 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 Seatbelt use: always Helmet use: Yes Helmet use: always Working smoke detector in home: Yes Firearms in home: No Do you feel safe at home: Yes Do you feel safe in your relationship?: Yes Exam Narrative Exam Narrative: Constitutional: well and [id number], pleasant, conversing normally HENT: head atraumatic/normocephalic/normal inspection, mucous membranes moist Eyes: conjunctiva normal, sclera normal, pupils 3mm b/l Neck: no stridor, normal ROM, trachea midline Chest: normal inspection Resp: normal work of breathing, speaking in full sentences Cardio: normal rate, normal rhythm GI: abdomen soft, non-tender, non-distended Back: normal inspection, no rash, focal spinal point tenderness over approximately T5 that reproduces pain, no crepitus, no deformity, no tenderness palpation of the cervical spine, T-spine otherwise, lumbar spine. No paraspinal tenderness palpation. Skin: warm, dry, normal color, no rash Neuro: alert, not altered, grossly non-focal, normal tone Ext: no edema, no posterior calf tenderness palpation, DP pulses intact and symmetric Psych: normal mood, normal affect, normal behavior Course Vital Signs Vital signs: Vital Signs Temperature 36.3 C L 04/13/22 14:31 Pulse 80 04/13/22 14:31 Respiratory Rate 15 04/13/22 14:31 Blood Pressure 114/73 04/13/22 14:31 Pulse Oximetry 98 04/13/22 14:31 Temperature 36.3 C L 04/13/22 14:31 Temperature Source Skin 04/13/22 14:31 Pulse 80 04/13/22 14:31 Respiratory Rate 15 04/13/22 14:31 Respiratory Effort 04/13/22 14:43 Respiratory Depth Normal 04/13/22 14:43 Respiratory Pattern Normal 04/13/22 14:43 Blood Pressure 114/73 04/13/22 14:31 Pulse Oximetry 98 04/13/22 14:31 Oxygen Delivery Method Room Air 04/13/22 14:31 Oxygen Flow Rate 0 04/13/22 14:31 Pain Level 6 04/13/22 14:31 Comment 04/13/22 14:31 PAWSS Have you Been Recently Intoxicated or Drunk Within the Last 30 days?: No Have you Ever Experienced Previous Episodes of Alcohol Withdrawal?: No Have you ever Experienced Withdrawal Seizures?: No Have you ever Experienced Delirium Tremens(DT)s?: No Have you ever undergone Alcohol Rehabilitation Treatment (i.e, inpt ot outpatient treatment programs)?: No Have you ever Experienced Blackouts?: No Have you ever Combined Alcohol with other Downers within the last 90 days?: No Have you ever Combined Alcohol with any other Substance of Abuse during the last 90 days?: No Positive Blood Alcohol level on Presentation? [PCS.BAL]: No Evidence of Increased Autonomic Activity (i.e. HR>120, tremor, sweating, agitation, nausea)?: No Result: 0
[2022-04-13 16:41] VITALS: BP 122/70; PULSE 78; RESP 18; O2SAT 96
--- NOTE | 2022-04-13 17:34 | DI.VRAD_ITS ---
PROCEDURE INFORMATION: Exam: CT Thoracic Spine Without Contrast Exam date and time: 04/13/2022 5:00 PM Age: 66 years old Clinical indication: Focal pain at approximately t5 level, no trauma TECHNIQUE: Imaging protocol: Computed tomography images of the thoracic spine without contrast. COMPARISON: MR L-SPINE^ROUTINE WO 08/01/2019 3:03 PM FINDINGS: Vertebrae: No acute fracture. There is mild grade 1 anterolisthesis of T2 on T3. Discs/Spinal canal/Neural foramina: No significant disc protrusion. No severe spinal canal stenosis. No significant neural foraminal narrowing. Soft tissues: Unremarkable. IMPRESSION: No evidence of fracture or osseous lesion. Dictated and Authenticated by: Julianna Maza MD. Ordering:SARAH Colon MD
--- NOTE | 2022-04-13 18:06 | ED.PROG_ITS ---
Date of service: 04/13/22 Time of Service: 17:06 Medical Decision Making Patient resting comfortably no acute distress. Denies chest pain or shortness of breath. Endorses that earlier today she is confused about how to read her pulse oximeter, however believes her oxygen was normal. No history of blood clots, no history of immobilization recent surgery recent travel recent trauma or exogenous estrogen use. Patient was normoxic, bilateral breath sounds equal. Feeling better and less symptomatic than before. Consider muscular strain of back versus costochondritis versus pleurisy versus less likely PE or ACS given history and physical. CT of thoracic spine unremarkable. Counseled patient at length regarding alarming symptoms that should prompt her return to the emergency department. Patient is comfortable going home will follow up with primary care and will return to emergency department if he experiences any worsening symptoms. Sign Out Sign Out Data: Sign Out Comment: Patient signed out to Dr. Pardo at time of shift change with CT, reassessment pending Last updated by Darlene Maguire MD at 04/13/22 17:30 Discharge Plan Disposition Patient Disposition: HOME Condition: Improving Discharge Details Chief Complaint: SOB Clinical Impression: Back pain Primary Care Provider: Shara Burks ED Provider: Cesar Pardo Home Meds and New Rx's Prescriptions: No Action alendronate [Fosamax] 70 mg tablet 70 mg PO QWEEK meclizine 12.5 mg tablet 12.5 mg PO Q6H PRN PRN albuterol sulfate 90 mcg/actuation Hfa Aerosol Inhaler 2 inh INHALATION ONCE PRN loratadine 10 mg Tablet 10 mg PO DAILY PRN aspirin [Aspir-81] 81 MG tablet,delayed release (DR/EC) 1 tab PO DAILY multivitamin 1 EACH capsule 1 cap PO DAILY pantoprazole 40 MG tablet,delayed release (DR/EC) 40 mg PO DAILY PRN vitamin B complex [B-Complex] 1 EACH tablet 1 ea PO DAILY calcium carbonate-vitamin D3 [Calcium 600 with Vitamin D3] 600 mg(1,500mg) - 500 unit Capsule 2 cap PO DAILY ibuprofen 800 MG tablet 800 mg PO TID PRN PRNQty: 60 0RF phenazopyridine [Pyridium] 200 mg tablet 200 mg PO TID PRNQty: 6 0RF Discharge Instructions Instructions: Back Pain (ED) Additional Instructions: Please return to the emergency department if you develop trouble breathing, cough, chest pain, worsening pain with deep breath, fainting, or any other abnormal symptoms. Please be seen by your primary care physician.
== END 2022-04-13 18:14 | disposition home or self-care (01) ==
PROVIDERS: Emergency Provider Emergency Medicine; PCP Physician Assistant Medical
DX: M54.6 Pain in thoracic spine (principal); R06.02 Shortness of breath
CPT/HCPCS: 93005; 99284; 72128; 93010; 99283

== ENCOUNTER 2022-04-30 16:50 | Outpatient (REF) | payer MEDICAID, SELFPAY ==
[2022-05-02 10:28] LABS: COVID-19 RT-PCR UVMMC Result Negative (Negative)
== END 2022-04-30 16:51 | disposition home or self-care (01) ==
LOC: LBN 16:50
PROVIDERS: PCP Physician Assistant Medical; Visit Provider Physician Assistant Medical
DX: J02.9 Acute pharyngitis, unspecified (principal); Z20.822 Contact with and (suspected) exposure to COVID-19
CPT/HCPCS: U0003; 87070

== ENCOUNTER 2022-07-14 10:51 | Outpatient (REF) | payer MEDICAID, SELFPAY ==
--- NOTE | 2022-07-14 10:30 | PAPFT_PTH ---
PATIENT: Ellie Chauhan LOC: [facility]#:[id number] AGE/SX: 66/F ROOM: RE07/14/[address]: Shara Burks : 1955 BED: DIS: 07/14/2022 SPEC #: [id number] RECD: 07/14/22 15:40 STATUS: LISSETTE REQ #: [id number] MARGOT: 07/14/22 10:[address]: Shara Burks DEPT: [facility] Cytology RECD BY: Nuha Giles Tissues: 1 - CX/ENDOCX FOR PAP SMEARS Procedures: PAP THIN PREP/UVM Screening HPV DNA PROBE Comments: [id number]
== END 2022-07-14 10:52 | disposition home or self-care (01) ==
LOC: NCHCN 10:51
PROVIDERS: PCP Physician Assistant Medical; Visit Provider Physician Assistant Medical
DX: Z12.4 Encounter for screening for malignant neoplasm of cervix (principal); Z11.51 Encounter for screening for human papillomavirus (HPV)
CPT/HCPCS: 88142; 87624

== ENCOUNTER → 2022-08-05 11:17 | Outpatient (BNVA) | payer MEDICARE, MEDICAID, SELFPAY | PROVIDERS: PCP Physician Assistant Medical; Referring Provider Physician Assistant Medical; Visit Provider Nurse Practitioner Gerontology | DX: N32.89 Other specified disorders of bladder (principal); R30.0 Dysuria | CPT/HCPCS: 51798; 81003; 99214 ==

== ENCOUNTER 2022-08-05 13:56 | Outpatient (REF) | payer MEDICAID, SELFPAY ==
--- OUTSIDE RECORDS SUMMARY | 2022-08-05 13:59 | XMS_ITS | Encounter Summary ---
:1955 Author Organization [facility] [employer] [facility] Address [place] [address] Care Team Providers Name Role Phone Angie Butler APRN Primary Care Provider Encounter Details Date Type Department Care Team Description 10/05/2014 Hospital Encounter XRay at [address] [place] [id number] Social History Tobacco Use Types Packs/Day Years Used Date Former Smoker Sex Assigned at Date Recorded Not on file documented as of this encounter Medications at Time of Discharge Medication Sig Dispensed Refills Start Date End Date cyclobenzaprine (FLEXERIL) Take 10 mg by 0 2013 10 mg Tablet mouth as needed. LORazepam (ATIVAN) 1 mg Take 1 mg by 0 07/20/2014 Tablet mouth as needed. aspirin (BABY ASPIRIN) 81 mg 0 009 chewable tablet PANTOPRAZOLE SODIUM 0 02/05/2009 (PROTONIX ORAL) levofloxacin (LEVAQUIN) 500 Take 500 mg by 0 01/201411/06/2014 mg Tablet mouth daily. documented as of this encounter Plan of Treatment Not on filedocumented as of this encounter Visit Diagnoses Not on filedocumented in this encounter Care Teams Flap Presser Relationship Specialty Start Date End Date Angie Butler APRN PCP - General 10/21/10 documented as of this encounter
--- OUTSIDE RECORDS SUMMARY | 2022-08-05 13:59 | XMS_ITS | Encounter Summary ---
:1955 Author Organization [facility] [place] [address] Care Team Providers Name Role Phone Angie Butler APRN Primary Care Provider Encounter Details Date Type Department Care Team Description 11/06/2014 Office Visit Nephrology Hypertension Cristhian Vallecillo, Microscopic hematuria at [facility] [place] [address] NEPHROLOGY DEPT. [phone] [place], [place] [address] Social History Tobacco Use Types Packs/Day Years Used Date Former Smoker Sex Assigned at Date Recorded Not on file documented as of this encounter Last Filed Vital Signs Vital Sign Reading Time Taken Comments Blood Pressure 109/81 11/06/2014 1:32 PM EST Pulse 79 11/06/2014 1:32 PM EST Temperature - - Respiratory Rate - - Oxygen Saturation - - Inhaled Oxygen Concentration - - Weight 59.7 kg (131 lb 9.6 oz) 11/06/2014 1:32 PM EST Height 147.3 cm (4' 10) 11/06/2014 1:32 PM EST Body Mass Index 27.5 11/06/2014 1:32 PM EST documented in this encounter Progress Notes Cristhian Vallecillo MD - 11/06/2014 1:37 PM EST 59 y/o woman seen at the request of for microscopic hematuria hematuria The patient self catherizes twice a day in mornings and at night, since 2-3 years, was seen in 2008 by , Saw a volunteer coordinator in [place] for pain and burning sensation and paresthesias in hands and feet, didn't have insurance and could not afford follow up Reports she had protein and blood in urine Frequent UTIs Patient measures up to 400ml when catheterizing Recent episode of extreme weakness, stayed in bed for days but feeling better now Recent laboratory tests: 09/03/14 creat 0.8 BUN 16 Na 142 K 3.9 Cl 107 CO2 26.3 Ca 8.8 Alb 3.9 Past Medical Hx: Raynaud's syndrome '09 No diabetes Shoulder surgery cesarien section Elbow surgery tubar ligation Fam Hx: No family history of renal disease, significant for diabetes, heart disease, psoriasis Soc Hx: Quit smoking 11 years ago, used to drink more in the past, 5-6 [place] lights a day, , not eatingmuch, she prepares meals, usually cereals Started multivitamin since a week ago, 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 R/S: Good energy, good appetite, no fevers, no chills, has frequent night sweats, no chest pain, no palpitations, no dyspnea, coughing when stressed, no rash, no swelling, no headaches, no vision changes, the remaining review of systems was negative Medications: Current outpatient prescriptions:MULTIVIT WITH CALCIUM,IRON,MIN (WOMEN'S DAILY MULTIVITAMIN ORAL), Take by mouth., Disp: , Rfl: , ; triamcinolone (NASACORT) 55 mcg Aerosol, [place], 2 sprays by Nasal route daily., Disp: , Rfl: , ; cyclobenzaprine (FLEXERIL) 10 mg Tablet, Take 10 mg by mouth as needed., Disp: , Rfl: , ; LORazepam (ATIVAN) 1 mg Tablet, Take 1 mg by mouth as needed., Disp: , Rfl: , aspirin (BABY ASPIRIN) 81 mg chewable tablet, , Disp: , Rfl: , ; PANTOPRAZOLE SODIUM (PROTONIX ORAL), , Disp: , Rfl: , No Known Allergies Physical exam: Filed Vitals: 11/06/14 1332 BP: 109/81 Pulse: 79 Height: 147.3 cm (4' 10) Weight: 59.693 kg (131 lb 9.6 oz) short stature Normal color Complete set of dentures Lungs clears Heart regular rhythm, no rub, no murmur No costophrenic angle tenderness Abdomen soft, non tender, normal bowel sounds, no bruit and no organ enlargement detected Limbs palmar erythema, no clubbing, no edema No tremor No edema No abnormality in vibration sense detected with tuning fork testing U/A: 1.015 pH 6, prot neg, glu neg, blood neg Urine sediment: few squamous epithelial cells, rare WBC Labs: Results for LELIE GOMEZ ( ) as of 11/13/2014 00:18 Ref. Range 11/06/2014 13:30 U Creatinine No range found 43 U Ran Malb Calc No range found 7 U Ran Malb Conc No range found 3.0 Results for ELLIE GOMEZ ( ) as of 11/13/2014 00:18 Ref. Range 10/05/2014 11:05 10/05/2014 11:24 WBC Latest Range: 4.0-10.0 x10(3)/mcL 6.3 RBC Latest Range: 3.93-5.22 x10(6)/mcL 4.42 Hemoglobin Latest Range: 11.2-15.7 gm/dL 13.2 Hematocrit Latest Range: 34.0-45.0 % 38.5 MCV Latest Range: 79.0-94.0 fL 87.1 MCH Latest Range: 26.6-32.2 pg 29.9 MCHC Latest Range: 32.0-36.5 gm/dL 34.3 RDWSD Latest Range: 35.0-46.0 fL 41.4 RDWCV Latest Range: 10.9-14.4 % 12.9 Platelets Latest Range: 145-370 x10(3)/mcL 214 MPV Latest Range: 9.0-12.0 fL 9.3 Neutr Abs (ANC) Latest Range: 1.50-6.30 x10(3)/mcL 4.24 Neutrophils % No range found 67.4 Immature Gran % No range found 0.20 Lymphocytes % No range found 24.6 Monocytes % No range found 5.1 Eosinophils % No range found 2.5 Basophils % No range found 0.2 Frances Gran Abs Latest Range: 0.00-0.05 x10(3)/mcL 0.01 Lymphocytes Abs Latest Range: 1.0-3.6 x10(3)/mcL 1.6 Monocyte Abs Latest Range: 0.2-1.0 x10(3)/mcL 0.3 Eosinophils Abs Latest Range: 0.0-0.5 x10(3)/mcL 0.2 Basophils Abs Latest Range: 0.0-0.2 x10(3)/mcL 0.0 Sed Rate Latest Range: 0-20 mm/hr 15 Sodium Latest Range: 135-145 mmol/L 140 Potassium Latest Range: 3.5-5.0 mmol/L 3.9 Chloride Latest Range: 98-107 mmol/L 103 CO2 Latest Range: 22-31 mmol/L 25 Anion Gap Latest Range: 5-15 mmol/L 12 BUN Latest Range: 8-18 mg/dL 13 Creatinine Latest Range: 0.70-1.20 mg/dL 0.72 Estimated GFR Latest Range: >=60 >60 Glucose Lvl Latest Range: 60-199 mg/dL 93 Calcium Latest Range: 8.5-10.5 mg/dL 9.5 Total Protein Latest Range: 6.4-8.3 gm/dL 7.6 Albumin Latest Range: 3.2-5.2 gm/dL 4.3 Total Bilirubin Latest Range: 0.2-1.3 mg/dL <0.2 (L) Bili, Direct Latest Range: 0.0-0.3 mg/dL <0.1 Alk Phos Latest Range: 40-104 unit/L 57 AST Latest Range: 0-30 unit/L 16 ALT Latest Range: 0-30 unit/L 18 Ferritin Latest Range: 30-400 ng/mL 55 Iron Latest Range: 30-150 mcg/dL 74 TIBC Latest Range: 250-450 mcg/dL 264 Iron Saturation Latest Range: 20-50 % 28 25-OH Vit D Total Latest Range: 30-100 ng/mL 44 CK, Total Latest Range: 0-160 unit/L 68 CRP High Sens No range found 1.9 IGOR Latest Range: Neg Titer to follow (A) IGOR Titer No range found Positive C3 Complement Latest Range: 90-180 mg/dL 109 C4 Complement Latest Range: 10-40 mg/dL 23 Complement Total Latest Range: 30 - 75 unit/mL 55 Anti-Cyc Cit Peptide Latest Range: <=17.0 unit/mL <8.0 DNA Ab (DS) Latest Range: Neg Pos (A) HUANG Ab No range found ... RF Latest Range: <=14 IU/mL <10 TSH Latest Range: 0.27-4.20 mcIU/mL 3.17 Color UA Latest Range: Yellow Straw Appearance UA Latest Range: Clear Clear Spec David UA Latest Range: 1.002-1.030 1.005 pH UA Latest Range: 5.0-8.0 5.0 Protein UA Latest Range: Negative mg/dL Negative Glucose UA Latest Range: Negative mg/dL Negative Ketones UA Latest Range: Negative mg/dL Negative Bilirubin UA Latest Range: Negative mg/dL Negative Urobilinogen UA Latest Range: Normal mg/dL Normal Blood UA Latest Range: Negative mg/dL Small (A) Leukocytes UA Latest Range: Negative mcL Negative Nitrite UA Latest Range: Negative Negative A/P: Normal renal function, normal blood pressure, had microscopic hematuria previously but normal urine sediment today, the urine tested negative for microalbuminuria No sign of renal disease The patient has been self catheterizing which is a likely cause for intermittent hematuria, has urinary retention of unknown etiology, was previously seen by , recommend follow up with urology, would consider renal and bladder ultrasound Beer drinking and poor diet raising concern about vitamin and nutritional deficiencies as the cause of burning paresthesias in her extremities, the patient was recently started on multivitamin Please send the patient back to this clinic if further assistance is required Thank you for involving me in the care for this patient Shara Marte documented in this encounter Plan of Treatment Not on filedocumented as of this encounter Procedures Procedure Name Priority Date/Time Associated Diagnosis Comme nts U ALBUMIN/CRE RATIO Routine 11/06/2014 1:30 PM Microscopic Re sults for this EST hematuria procedure are i n the results section. documented in this encounter Results Microalbumin, urine, random (11/06/2014 1:30 PM EST) P athologist Signature U Creatinine 43 mg/dL CERNER MILLENNIUM U Albumin Conc, 3.0 mg/L CERNER Random MILLENNIUM Alb/Cr Ratio, 7 mcg/mg Cr CERNER Random MILLENNIUM Comment: Reference Range* Random collection (mcg/mg creatinine) Normal ?<30 Microalbuminuria ?? 30 - 300 Clinical Albuminuria ?? >300 *[place] [employer]. Diabetic Nephropathy. Diabetes Care 1997;(Suppl 1):S24-S27 Exercise within 24 hour, infection, fe moreno, CHF, marked hyperglycemia, and marked hypertension may elevate urinary albumin excretion over baseline values. Specimen Anatomical Collection Method Collection Time Receive d Time (Source) Location / / Volume Laterality Urine specimen 11/06/2014 1:30 PM 014 4:26 (specimen) EST PM EST Resulting Agency Comment Spec In Lab Cristhian Vallecillo MD URINE ORDERABLES Performing Organization Address City/State/[place] [address] [facility] documented in this encounter Visit Diagnoses Diagnosis Microscopic hematuria documented in this encounter Care Teams Mobile Game Engineer Relationship Specialty Start Date End Date Angie Butler APRN PCP - General 10/21/10 documented as of this encounter
--- OUTSIDE RECORDS SUMMARY | 2022-08-05 13:59 | XMS_ITS | Clinical Summary ---
:1955 Author Organization [facility] [place] [address] Care Team Providers Name Role Phone Angie Butler APRN Primary Care Provider Allergies No known active allergies Medications Medication Sig Dispensed Refills Start Date End Date Status aspirin (BABY ASPIRIN) 81 0 02/05/2009 Active mg chewable tablet PANTOPRAZOLE SODIUM 0 02/05/2009 Active (PROTONIX ORAL) cyclobenzaprine Take 10 mg by 0 06/29/2014 Active (FLEXERIL) 10 mg Tablet mouth as needed. LORazepam (ATIVAN) 1 mg Take 1 mg by 0 07/20/2014 Active Tablet mouth as needed. MULTIVIT WITH Take by mouth. 0 A ctive CALCIUM,IRON,MIN (WOMEN'S DAILY MULTIVITAMIN ORAL) triamcinolone (NASACORT) 2 sprays by 0 Active 55 mcg Aerosol, [place] Nasal route daily. Active Problems Problem Noted Date Microscopic hematuria 11/13/2014 Immunizations Name Administration Dates Next Due Influenza Vaccine w/Preservative, Split 08/29/2014 Social History Tobacco Use Types Packs/Day Years Used Date Former Smoker Sex Assigned at Date Recorded Not on file Last Filed Vital Signs Vital Sign Reading Time Taken Comments Blood Pressure 109/81 11/06/2014 1:32 PM EST Pulse 79 11/06/2014 1:32 PM EST Temperature 37.1 ??C (98.8 ??F) 10/05/2014 10:00 AM EST Respiratory Rate - - Oxygen Saturation 99% 10/05/2014 10:00 AM EST Inhaled Oxygen Concentration - - Weight 59.7 kg (131 lb 9.6 oz) 11/06/2014 1:32 PM EST Height 147.3 cm (4' 10) 11/06/2014 1:32 PM EST Body Mass Index 27.5 11/06/2014 1:32 PM EST Plan of Treatment Health Maintenance Due Date Last Done Comments Covid-19 Vaccine (#1) 1962 HIV screen 1975 Hepatitis C Screening 1975 Tdap adult 1976 Tetanus vaccine 1976 HPV test 1987 PAP Smear 1987 Breast Cancer Share Decision Needed 1997 Colonoscopy 2002 Breast Cancer screening 2007 Zoster vaccine (1 of 2) 2007 Advance Directive 2012 Bone Density Scan 2022 Pneumoccocal Vaccine: 65+ (1 - PCV) 2022 Influenza (Flu) vaccine (1 of 1 - Influenza standard 07/30/2022 08/29/2014 series) Care Teams Data Processing Auditor Relationship Specialty Start Date End Date Angie Butler APRN PCP - General 10/21/10
--- OUTSIDE RECORDS SUMMARY | 2022-08-05 13:59 | XMS_ITS | Encounter Summary ---
:1955 Author Organization [facility] Address [facility] [place] [address] Care Team Providers Name Role Phone Angie Butler APRN Primary Care Provider Encounter Details Date Type Department Care Team Description 10/05/2014 Hospital Encounter XRay at [address] [place] [address] Social History Tobacco Use Types Packs/Day [...] on filedocumented in this encounter Care Teams Tarp Repairer Relationship Specialty Start Date End Date Angie Butler APRN PCP - General 10/21/10 documented as of this encounter
--- OUTSIDE RECORDS SUMMARY | 2022-08-05 13:59 | XMS_ITS | Encounter Summary ---
:1955 Author Organization [place] [address] Care Team Providers Name Role Phone [place], Angie Purcell APRN Primary Care Provider Reason for Visit Reason Onset Date Comments Other 10/12/2014 results Encounter Details Date Type Department Care Team Description 10/12/2014 Telephone Rheumatology [place] [facility] Maranda Larsen, Other (results) [facility] [place] [address] Social History Tobacco Use Types Packs/Day Years Used Date Former Smoker Sex Assigned at Date Recorded Not on file documented as of this encounter Miscellaneous Notes Telephone Encounter - Shante Bernardo LPN - 10/15/2014 2:33 PM EST Called and asked Ellie to return a call. Ellie returns a call. Called and relayed message to Ellie and she said she has an appt in October for Nephrology. Shewould like an appt with Dr. Garcia after her other appt. Message will be sent to the secretaries to make that appt. She prefers any day after 12:30. Telephone Encounter - Shante Bernardo LPN - 10/15/2014 11:59 AM EST It still means that there is a chance she might have lupus. Please ask her to see Nephrology and seewhat they think about her hematuria. Thanks Karl Message above from Dr. Garcia. Called and L/M for Ellie to return a call. Telephone Encounter - Shante Bernardo LPN - 10/15/2014 8:40 AM EST Ellie calls looking for the answers to her IGOR and her DNA antibody results to clarify what these mean. Message forwarded to Dr. Garcia. Telephone Encounter - Maranda Larsen RN - 10/12/2014 3:25 PM EST Ellie called back to review lab results. Relayed Dr. Garcia's message below. She also has a positive IGOR and DNA antibody. She would like to know what that means. Telephone Encounter - Maranda Larsen RN - 10/12/2014 11:44 AM EST Called Ellie and left message requesting a call back to discuss lab results. Telephone Encounter - Maranda Larsen RN - 10/12/2014 11:42 AM EST ----- Message from Karl Garcia MD sent at 10/11/2014 9:40 PM EST ----- Israel Low, Could you please call this pt and let her know that she has some blood in her urine? I requested Nephrology Consult for her. Thanks Karl documented in this encounter Plan of Treatment Not on filedocumented as of this encounter Visit Diagnoses Not on filedocumented in this encounter Care Teams Education General Manager Relationship Specialty Start Date End Date Angie Butler APRN PCP - General 10/21/10 documented as of this encounter
--- OUTSIDE RECORDS SUMMARY | 2022-08-05 13:59 | XMS_ITS | Encounter Summary ---
:1955 Author Organization [facility] Address [facility] [place] [address] Care Team Providers Name Role Phone Angie Butler APRN Primary Care Provider Encounter Details Date Type Department Care Team Description 10/05/2014 Hospital Encounter XRay at [address] [place] [address] Social History Tobacco Use Types Packs/Day [...] on filedocumented in this encounter Care Teams Division Director Relationship Specialty Start Date End Date Angie Butler APRN PCP - General 10/21/10 documented as of this encounter
--- OUTSIDE RECORDS SUMMARY | 2022-08-05 13:59 | XMS_ITS | Encounter Summary ---
:1955 Author Organization [facility] [place] [address] Care Team Providers Name Role Phone nAgie Butler APRN Primary Care Provider Encounter Details Date Type Department Care Team Description 10/16/[address] [facility] [place] [address] Social History Tobacco Use Types Packs/Day Years Used Date Former Smoker Sex Assigned at Date Recorded Not on file documented as of this encounter Miscellaneous Notes Telephone Encounter - Shante Bernardo LPN - 10/16/2014 9:08 AM EST I'll have to call her on a cancellation. He has no openings till january ----- Message ----- Message above from Nik Donovan membership secretary. documented in this encounter Plan of Treatment Not on filedocumented as of this encounter Visit Diagnoses Not on filedocumented in this encounter Care Teams Kelp Cutter Relationship Specialty Start Date End Date Angie Butler APRN PCP - General 10/21/10 documented as of this encounter
--- OUTSIDE RECORDS SUMMARY | 2022-08-05 14:00 | XMS_ITS | Encounter Summary ---
:1955 Author Organization [facility] [place] [address] Care Team Providers Name Role Phone Angie Butler BROCK Primary Care Provider Reason for Referral Consultation (Urgent) - Closed Specialty Diagnoses / Procedures Referred By Contact Refer red To Contact Nephrology Diagnoses IGOR positive Hematuria IGOR positive Karl Garcia MD [facility] 2m Procedures [facility] [place] [address] [place] [address] Referral ID Status Reason Start Date Expiration Date Visits V isits Requested Authorized [id number] Closed Consult, 10/11/2014 04/09/2015 1 1 Test & Treat Reason for Visit Reason Comments Referral Encounter Details Date Type Department Care Team Description 10/05/2014 Office Visit Rheumatology at [facility] Karl Garcia MD IGOR positive; [facility] Joint pain; [place] [address] Back pain; [phone] RHEUMATOLOGY DEP T. Neck pain; [place], [place] [address] Hematuria [phone] (Wo rk) Social History Tobacco Use Types Packs/Day Years Used Date Former Smoker Sex Assigned at Date Recorded Not on file documented as of this encounter Last Filed Vital Signs Vital Sign Reading Time Taken Comments Blood Pressure 96/68 10/05/2014 10:00 AM EST Pulse 75 10/05/2014 10:00 AM EST Temperature 37.1 ??C (98.8 ??F) 10/05/2014 10:00 AM EST Respiratory Rate - - Oxygen Saturation 99% 10/05/2014 10:00 AM EST Inhaled Oxygen Concentration - - Weight 60.7 kg (133 lb 12.8 oz) 10/05/2014 10:00 AM EST Height 148.6 cm (4' 10.5) 10/05/2014 10:00 AM EST Body Mass Index 27.49 10/05/2014 10:00 AM EST documented in this encounter Patient Instructions Patient InstructionsOlga Muñoz CMA - 10/05/2014 10:02 AM EST I would like you to sign up for myD-H, which will give you secure online access to your electronic medical record at [facility] and the ability to communicate with your health care team when and where it???s most convenient for you. With myD-H you will be able to: - look at parts of your medical record including test results and office notes - send and receive messages to/from me and your other providers - renew prescriptions - schedule appointments. To sign up, go to [email or web address] and click I have an activation code and follow the instructions. Here is your activation code: [email or web address] Expires: 11/19/2014 10:02 AM Remember, myD-H is NOT for urgent needs! Always dial 911 for medical emergencies. 1) Check labs today. 2) Get X-ray of the neck, low back, and hands today. 3) Return to follow up in 4-6 weeks. documented in this encounter Progress Notes Karl Garcia MD - 10/05/2014 10:18 AM EST REASON FOR VISIT: Consultation for multiple joint pain and positive IGOR. HISTORY OF PRESENT ILLNESS: The pt was a 59-year-old female, who presented for a consultation of multiple joint pain and IGOR upon request of her primary care provider MAYELA Krishnamurthy. The pt noted she initially developed Raynaud's phenomenon in her fingers when her fingers turned white in the cold weather about four years ago. Since then, she also developed back pain and multiple joint pain without any incitingcause such as fall, injuries, or trauma. Overall, the pain was worst at the bottom of the feet, followed by the hands, knee caps, back, right romario area, neck, and then top of the shoulders. In addition, she complained of left foot swelling, as well as morning stiffness of the feet for a few minutes. She was previously evaluated by a local [employer] Dr. Drake Pineda, who followed her for possiblelimited systemic sclerosis or mixed connective tissue disease based on positive IGOR with a titer of 1:640 with centromere pattern, positive Raynaud's phenomenon, but seronegative for anti-dsDNA antibodies, and HUANG's. She was referred to the Rheumatology Clinic at [facility] for further evaluation. PAST MEDICAL HISTORY: Hyperlipidemia, diet control Vertigo GERD Raynaud's phenomenon Anxiety disorder Urinary retention, s/p self cath Vertigo S/p S/p left rotator cuff tear, s/p repair S/p right elbow fracture, s/p ORIF MEDICATIONS: I reviewed pt's medication entries on electronic record. ALLERGIES: NKDA SOCIAL HISTORY: Cigarettes: <1 ppd x 34-35 years (quit 10 years ago). Alcohol: H/o heavy beer use, now 4-6 beer per week. Pt was x 2, with two children. She was currently living with her . He was a loan documents closer at [employer]. ? FAMILY HISTORY: Mother - Coronary artery disease, congestive heart failure; of heart failure at the age of 72. Father - Coronary artery disease, cataract, psoriasis; of s/p AMI in his late 60's. Sister #1: Psoriasis. REVIEW OF SYSTEMS: Constitutional - No chronic fatigue, weight change, fever, chills, or night sweat. Cardiovascular - No chest pain, palpitations, or leg swelling. Pulmonary - + Dyspnea on moderate exertion, + shortness of breath; no cough, orthopnea, hemoptysis, or PND. Gastrointestinal - Normal appetite; + heartburn, + acid reflux, + nausea; no abdominal pain, vomiting, diarrhea, or bloody stool. Genitourinary - + Dysuria, + hesitancy, + hematuria; no incontinence, frequency, or nocturia. Endocrine - No thyroid dysfunction, diabetes, heat/cold intolerance, or polydipsia. Hematological - No anemia, easy bruising, or blood clots. Musculoskeletal - + Neck pain, + low back pian, + multiple join pain, + left foot swelling, + morning stiffness of the feet x a few minutes, + Raynaud's phenomenon. Dermatological - No rash, oral ulcers, dry eyes, dry mouth, hair loss, or external lesions. Neurological - + Tension headache, + dizziness; no numbness and tingling sensation, vision change, lightheadedness, seizures, or syncope. Psychiatric - + Anxiety; no depression or psychosis. PHYSICAL EXAMINATION: Vitals 10/05/2014 SYSTOLIC 96 DIASTOLIC 68 PULSE 75 TEMPERATURE 98.8 Height (Korean) 4' 10.5 Height (Metric) 148.6 cm Weight (Korean) 133 lbs 13 oz Weight (Metric) 60.691 kg BODY MASS INDEX 27.48 kg/m2 Pulse Oximetry 99 General - Alert, co-operative, no apparent distress, oriented x 3. HEENT - PERRL, EOMI bilaterally, conjunctiva pink, no sclerae icterus or malar rash; oropharynx moist and non-erythematous. Neck - Supple, FROM, no posterior cervical spinal tenderness on palpation; + bilateral paraspinal tenderness on palpation. Heart - Regular rate and rhythm, normal S1 and S2; no murmurs, rubs, or gallops. Lungs - Symmetric, no respiratory distress, clear to auscultation bilaterally. Abdomen - Soft, non-tender, non-distended, bowel sound present. Back - Erect, FROM; + lumbosacral spinal tenderness on palpation; + bilateral paraspinal tenderness on palpation. Extremities - Upper extremities: FROM of all joints, + bilateral shoulder tenderness at the acromioclavicular joint areas on palpation (right > left); + mild synovitis with mild discomfort on palpation of bilateral 2nd - 3rd MCP joints, right 3rd PIP joint, and left 2nd PIP joints; no soft tissue swelling or joint effusion; no clubbing, cyanosis, or edema. Lower extremities: FROM of all joints; + low back pain on all ranges of motion of both hips; + bilateral ankle joint tenderness on palpation; no signs of synovitis, soft tissue swelling, or joint effusion; no clubbing, cyanosis, or edema; 2+ peripheral pulses bilaterally. Skin - Smooth and intact, good capillary refill in all digits, no rash, bruises, telangiectasia on skin or at all nail margins, or sclerodactyly. Neuro - No sensory or motor function deficit, DTR = +2/4 bilaterally and throughout. Psych - Affect normal. IMPRESSION: 1) Polyarthritis, 2) positive IGOR, and 3) Raynaud's phenomenon in a 59-year-old female. The pt's overall symptomatology is suspicious for rheumatic disease such as lupus. She will undergo complete serological workup for further evaluation. She will also undergo radiographic studies of the hands to evaluate for chronic inflammatory changes. 4) Hematuria. The etiology of the pt's clinical history of hematuria is unknown. In the setting of positive IGOR, she will need further evaluation to evaluate for possible lupus nephritis. She will undergo serological studies and urinalysis today. 5) Neck pain and 6) low back pain. The etiology of the pt's neck pain and low back pain is unclear. On physical examination, her neck pain was mainly represented by paraspinal muscle tenderness, whereas her low back pain could be spinal disc disease and facet arthropathy. She will undergo radiographicstudies for further evaluation. RECOMMENDATIONS: 1) Check labs today. 2) Get X-ray of the neck, low back, and hands today. 3) Return to follow up in 4-6 weeks. ? Karl Garcia MD, PhD documented in this encounter Plan of Treatment Scheduled Referrals Name Type Priority Associated Order Schedule Diagnoses Referral to Outpatient Referral Routine IGOR positive Ordered: Nephrology Hematuria 10/11/2014 documented as of this encounter Procedures Procedure Name Priority Date/Time Associated Comments Diagnosis XR HANDS MIN 3 VIEWS Routine 10/05/2014 11:58 Joint pain Res ults for this BILAT AM EST procedure are i n the results section. XR CERVICAL SPINE Routine 10/05/2014 11:48 Result s for this ROUTINE AND OBLIQUE (4 AM EST proce dure are in OR 5 VIEWS) the results section. XR LUMBAR SPINE 2 OR 3 Routine 10/05/2014 11:44 Back pain R esults for this VIEWS AM EST procedure are i n the results section. URINALYSIS WITHOUT Routine 10/05/2014 11:24 IGOR positive Results for this MICROSCOPIC AM EST Joint pain procedure are in Back pain the results section. EXTRACTABLE NUCLEAR Routine 10/05/2014 11:05 IGOR positiv e Results for this ANTIGEN (HUANG) AB AM EST Joint pain procedure are in Back pain the results section. ANTI-CYCLIC Routine 10/05/2014 11:05 IGOR positive Results for this CITRULLINATED PEPTIDE AM EST Joint pain procedure are in AB Back pain the results section. DNA ANTIBODY Routine 10/05/2014 11:05 IGOR positive Results for this (DOUBLE-STRANDED) AM EST Joint pain procedure are in Back pain the results section. HEMOGRAM Routine 10/05/2014 11:05 IGOR positive Results for this AM EST Joint pain procedure are in Back pain the results section. DIFFERENTIAL, Routine 10/05/2014 11:05 IGOR positive Results for this AUTOMATED AM EST Joint pain procedure are in Back pain the results section. IRON AND TIBC Routine 10/05/2014 11:05 IGOR positive Results for this AM EST Joint pain procedure are in Back pain the results section. IGOR TITER Routine 10/05/2014 11:05 Results for this AM EST procedure are i n the results section. VITAMIN D, 25-HYDROXY Routine 10/05/2014 11:05 IGOR posit mason Results for this AM EST Joint pain procedure are in Back pain the results section. SEDIMENTATION RATE Routine 10/05/2014 11:05 IGOR positive Results for this AM EST Joint pain procedure are in Back pain the results section. CBC (WITH DIFF) Routine 10/05/2014 11:05 IGOR positive AM EST Joint pain Back pain RHEUMATOID FACTOR, Routine 10/05/2014 11:05 IGOR positive Results for this QUANT AM EST Joint pain procedure are in Back pain the results section. COMPLEMENT, TOTAL Routine 10/05/2014 11:05 IGOR positive Results for this AM EST Joint pain procedure are in Back pain the results section. C3 COMPLEMENT Routine 10/05/2014 11:05 IGOR positive Results for this AM EST Joint pain procedure are in Back pain the results section. C4 COMPLEMENT Routine 10/05/2014 11:05 IGOR positive Results for this AM EST Joint pain procedure are in Back pain the results section. CRP, CARDIAC RISK (HS Routine 10/05/2014 11:05 IGOR posit mason Results for this CRP) AM EST Joint pain procedure are in Back pain the results section. IGOR Routine 10/05/2014 11:05 IGOR positive Results for this AM EST Joint pain procedure are in Back pain the results section. TSH Routine 10/05/2014 11:05 IGOR positive Results for this AM EST Joint pain procedure are in Back pain the results section. FERRITIN Routine 10/05/2014 11:05 IGOR positive Results for this AM EST Joint pain procedure are in Back pain the results section. CK Routine 10/05/2014 11:05 IGOR positive Results for this AM EST Joint pain procedure are in Back pain the results section. COMPREHENSIVE Routine 10/05/2014 11:05 IGOR positive Results for this METABOLIC PANEL AM EST Joint pain procedure are in (NON-FASTING) Back pain the results section. documented in this encounter Results XR Bilateral Hands Minimum 3 Views (10/05/2014 11:58 AM EST) Anatomical Region Laterality Modality Hand Bilateral Radiographic Imaging Specimen (Source) Anatomical Collection Method Collection Time Re ceived Time Location / / Volume Laterality 10/05/2014 11:58 AM EST Narrative 10/05/2014 2:20 PM EST Examination BILATERAL HANDS MIN 3 VIEWS Clinical History bilateral hand pain and swelling Comparison None. Technique 4 views of the hand. Findings There is mild interphalangeal joint oste oarthritis and soft tissue swelling, the metacarpophalangeal joints and inter carpal joints appear normal. ??There are mild line ulna minus deformities. ??No j uxta-articular erosions or soft tissue calcifications noted, except for a tiny calcification on the ulnar aspect of the left 2nd PIP joint. ?? Impression Mild interphalangeal joint osteoarthriti s. Procedure Note Ankur Vinson MD - 10/05/2014Formatt ing of this note might be different from the original. Examination BILATERAL HANDS MIN 3 VIEWS Clinical History bilateral hand pain and swelling Comparison None. Technique 4 views of the hand. Findings There is mild interphalangeal joint oste oarthritis and soft tissue swelling, the metacarpophalangeal joints and inter carpal joints appear normal. There are mild line ulna minus deformities. No jux ta-articular erosions or soft tissue calcifications noted, except for a tiny calcification on the ulnar aspect of the left 2nd PIP joint. Impression Mild interphalangeal joint osteoarthriti s. Karl Garcia MD IMG DX ORDERABLES XR Cervical Spine Routine & Oblique (4 or 5 views) (10/05/2014 11:48 AM EST) Anatomical Region Laterality Modality T-spine N/A Radiographic Imaging Specimen (Source) Anatomical Collection Method Collection Time Re ceived Time Location / / Volume Laterality 10/05/2014 11:48 AM EST Narrative 10/05/2014 2:13 PM EST Examination SPINE CERV ROUT & OBL (4 or 5 views) Clinical History worsening neck pain Comparison None. Technique 4 views of the cervical spine. Findings There is normal cervical morphology and alignment and disc spaces, no sign of compression fracture or spondylolisthesi s. ??Prevertebral soft tissues are normal. ??The bony neural foramina are w idely patent. ??The lower right-sided foramina are not well seen ??due to the obliquity of the positioning rather than true pathology. ??No significant carotid artery calcifications or facet arthropathy noted. Impression Normal cervical spine. ??No evidence of spondylosis or significant facet arthropathy. Procedure Note Ankur Vinson MD - 10/05/2014Formatt ing of this note might be different from the original. Examination SPINE CERV ROUT & OBL (4 or 5 views) Clinical History worsening neck pain Comparison None. Technique 4 views of the cervical spine. Findings There is normal cervical morphology and alignment and disc spaces, no sign of compression fracture or spondylolisthesi s. Prevertebral soft tissues are normal. The bony neural foramina are wid heather patent. The lower right-sided foramina are not well seen due to the ob liquity of the positioning rather than true pathology. No significant carotid a rtery calcifications or facet arthropathy noted. Impression Normal cervical spine. No evidence of sp ondylosis or significant facet arthropathy. Karl Garcia MD IMG DX ORDERABLES XR lumbar spine 2 or 3 views (10/05/2014 11:44 AM EST) Anatomical Region Laterality Modality L-spine N/A Radiographic Imaging Specimen (Source) Anatomical Collection Method Collection Time Re ceived Time Location / / Volume Laterality 10/05/2014 11:44 AM EST Narrative 10/05/2014 1:55 PM EST Examination LSPINE 2 OR 3 VIEWS/SHIELD Clinical History worsening low back pain Comparison None. Technique AP and lateral views of the lumbar sacra l spine. Findings There is no significant scoliosis noted, and the sacroiliac joints are normal. ?? No sign of spondylolisthesis or compress ion fracture. ??There is very mild degenerative disc disease at L2-L3 and L 3-L4. ??There is significant facet arthropathy of L4-S1, most marked at L5- S1. Coarse aortic calcifications are noted. Impression Mild degenerative disc disease as above. ??No sign of spondylolisthesis or compression fracture. ??Moderate facet a rthropathy of L4-S1. Procedure Note Ankur Vinson MD - 10/05/2014Formatt ing of this note might be different from the original. Examination LSPINE 2 OR 3 VIEWS/SHIELD Clinical History worsening low back pain Comparison None. Technique AP and lateral views of the lumbar sacra l spine. Findings There is no significant scoliosis noted, and the sacroiliac joints are normal. No sign of spondylolisthesis or compress ion fracture. There is very mild degenerative disc disease at L2-L3 and L 3-L4. There is significant facet arthropathy of L4-S1, most marked at L5- S1. Coarse aortic calcifications are noted. Impression Mild degenerative disc disease as above. No sign of spondylolisthesis or compression fracture. Moderate facet art hropathy of L4-S1. Karl Garcia MD IMG DX ORDERABLES (ABNORMAL) Urinalysis without microscopic (10/05/2014 11:24 AM EST) [facility] Method Time Signature Glucose UA Negative Negative CERNER mg/dL MILLENNIUM Protein UA Negative Negative CERNER mg/dL MILLENNIUM Bilirubin UA Negative Negative CERNER mg/dL MILLENNIUM Comment: Clinical correlation required for positi ve Urine Bilirubin results as false positive may occur with some drugs and d rug related products. If a false positive is suspected a serum total bili lagos should be considered if clinically indicated. Urobilinogen UA Normal Normal mg/dL CERNER MILL ENNIUM pH UA 5.0 5.0 - 8.0 CERNER MILLENNIUM Blood UA Small (A) Negative mg/dL CERNER MILLENNI UM Ketones UA Negative Negative mg/dL CERNER MILLENN IUM Nitrite UA Negative Negative CERNER MILLENNIUM Leukocytes UA Negative Negative mcL CERNER NARAYAN NIUM Appearance UA Clear Clear CERNER MILLENNIU M Spec [place] UA 1.005 1.002 - 1.030 CERNER MIL LENNIUM Color UA Straw Yellow CERNER MILLENNIUM Specimen Anatomical Collection Method Collection Time Receive d Time (Source) Location / / Volume Laterality Urine specimen 10/05/2014 11:24 4 (specimen) AM EST 11:31 AM EST Resulting Agency Comment Spec In Lab Karl Garcia MD URINE ORDERABLES Performing Organization Address City/[facility]/ZIP Code Phon e Number [address] CERNER MILLENNIUM IGOR Titer (10/05/2014 11:05 AM EST) athologist Signature IGOR Titer Positive CERNER MILLENNIUM Comment: 1:640 Titer seen with Centromere pattern . 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 Specimen Anatomical Collection Method Collection Time Receive d Time (Source) Location / / Volume Laterality Blood specimen 10/05/2014 11:05 4 2:10 (specimen) AM EST PM EST Resulting Agency Comment Spec In Lab Karl Garcia MD IMMUNOLOGY ORDERABLES Performing Organization Address City/[facility] Code Phon e Number [address] CERNER MILLENNIUM Differential, Automated (10/05/2014 11:05 AM EST) athologist Signature Neutrophils % 67.4 % CERNER MILLENNIUM Neutr Abs (ANC) 4.24 1.50 - CERNER 6.30 MILLENNIUM x10(3)/mcL Lymphocytes % 24.6 % CERNER MILLENNIUM Lymphocytes Abs 1.6 1.0 - 3.6 CERNER x10(3)/mcL MILLENNIUM Monocytes % 5.1 % CERNER MILLENNIUM Monocyte Abs 0.3 0.2 - 1.0 CERNER x10(3)/mcL MILLENNIUM Eosinophils % 2.5 % CERNER MILLENNIUM Eosinophils Abs 0.2 0.0 - 0.5 CERNER x10(3)/mcL MILLENNIUM Basophils % 0.2 % CERNER MILLENNIUM Basophils Abs 0.0 0.0 - 0.2 CERNER x10(3)/mcL MILLENNIUM Immature Gran % 0.20 % CERNER MILLENNIUM Comment: Immature granulocytes(IG's)percentage an d absolute count will include metamyelocytes, myelocytes, and promyelo cytes. Blood smears from CBCs yielding IG's will be scanned manually for concor dance. If this scan disagrees with the automated IG or if promyelocytes are not ed, a manual differential will be performed. Frances Gran Abs 0.01 0.00 - 0.05 x10(3)/mcL CER NER MILLENNIUM Specimen Anatomical Collection Method Collection Time Receive d Time (Source) Location / / Volume Laterality Blood specimen 10/05/2014 11: 4 (specimen) AM EST 11:12 AM EST Resulting Agency Comment Spec In Lab Karl Garcia MD HEMATOLOGY ORDERABLES Performing Organization Address City/[facility]/ZIP Code Phon e Number [address] CERNER MILLENNIUM Hemogram (10/05/2014 11:05 AM EST) P athologist Signature WBC 6.3 4.0 - 10.0 CERNER x10(3)/mcL MILLENNIUM RBC 4.42 3.93 - 5.22 CERNER x10(6)/mcL MILLENNIUM Hemoglobin 13.2 11.2 - 15.7 CERNER gm/dL MILLENNIUM Hematocrit 38.5 34.0 - 45.0 CERNER % MILLENNIUM MCV 87.1 79.0 - 94.0 CERNER fL MILLENNIUM MCH 29.9 26.6 - 32.2 CERNER pg MILLENNIUM MCHC 34.3 32.0 - 36.5 CERNER gm/dL MILLENNIUM Platelets 214 145 - 370 CERNER x10(3)/mcL MILLENNIUM RDWSD 41.4 35.0 - 46.0 CERNER fL MILLENNIUM RDWCV 12.9 10.9 - 14.4 CERNER % MILLENNIUM MPV 9.3 9.0 - 12.0 CERNER fL MILLENNIUM Specimen Anatomical Collection Method Collection Time Receive d Time (Source) Location / / Volume Laterality Blood specimen 10/05/2014 11: 4 (specimen) AM EST 11:12 AM EST Resulting Agency Comment Spec In Lab Karl Garcia MD HEMATOLOGY ORDERABLES Performing Organization Address City/[facility]/ZIP Code Phon e Number [address] CERNER [facility] (ABNORMAL) DNA Antibody (Double-Stranded) (10/05/2014 11:05 AM EST) athologist Signature DNA Ab (DS) Pos (A) Neg CERNER MILLENNIUM Comment: DNA AB screen Positive at 1:10 Specimen Anatomical Collection Method Collection Time Receive d Time (Source) Location / / Volume Laterality Blood specimen 10/05/2014 11:05 4 2:10 (specimen) AM EST PM EST Resulting Agency Comment Spec In Lab Karl Garcia MD CHEMISTRY ORDERABLES Performing Organization Address City/[facility]/ZIP Code Phon e Number [address] CERNER MILLENNIUM (ABNORMAL) IGOR (10/05/2014 11:05 AM EST) athologist Signature IGOR Titer to Neg CERNER follow (A) MILLENNIUM Specimen Anatomical Collection Method Collection Time Receive d Time (Source) Location / / Volume Laterality Blood specimen 10/05/2014 11:05 4 2:10 (specimen) AM EST PM EST Resulting Agency Comment Spec In Lab Karl Garcia MD IMMUNOLOGY ORDERABLES Performing Organization Address City/State/ZIP Code Phon e Number [address] CERNER MILLENNIUM C4 Complement (10/05/2014 11:05 AM EST) athologist Signature C4 Complement 23 10 - 40 CERNER mg/dL MILLENNIUM Specimen Anatomical Collection Method Collection Time Receive d Time (Source) Location / / Volume Laterality Blood specimen 10/05/2014 11:05 4 (specimen) AM EST 11:12 AM EST Resulting Agency Comment Spec In Lab Karl Garcia MD CHEMISTRY ORDERABLES Performing Organization Address City/[facility]/ZIP Code Phon e Number [address] CERNER MILLENNIUM C3 Complement (10/05/2014 11:05 AM EST) athologist Signature C3 Complement 109 90 - 180 CERNER mg/dL MILLENNIUM Specimen Anatomical Collection Method Collection Time Receive d Time (Source) Location / / Volume Laterality Blood specimen 10/05/2014 11:05 4 (specimen) AM EST 11:12 AM EST Resulting Agency Comment Spec In Lab Karl Garcia MD CHEMISTRY ORDERABLES Performing Organization Address [facility]/ZIP Code Phon e Number [address] CERNER MILLENNIUM Complement, Total (10/05/2014 11:05 AM EST) athologist Signature Complement 55 30 - 75 CERNER Total unit/mL MILLENNIUM Comment: Test Performed by: [facility] [address], [place] [place] [address] Insurance Healthcare Representative: Ashanti Frazier, Ph. D. Specimen Anatomical Collection Method Collection Time Receive d Time (Source) Location / / Volume Laterality Blood specimen 10/05/2014 11:05 4 (specimen) AM EST 11:58 AM EST Resulting Agency Comment Spec In Lab Karl Garcia MD CHEMISTRY ORDERABLES Performing Organization Address City/[facility]/ZIP Code Phon e Number [address] CERNER MILLENNIUM Extractable Nuclear Antigen (HUANG) Ab (10/05/2014 11:05 AM EST) [facility] Time Signature HUANG Ab CERNER Test ?Result ?Flag ??Unit ??RefValue MILLENNIUM Ab to Extractable Nuclear Ag Eval,S ??SS-A/Ro Ab, IgG, S ?<0.2 ?U -- REFERENCE VALUE -- <1.0 (Negative) ??SS-B/La Ab, IgG, S ?<0.2 ?U -- REFERENCE VALUE -- <1.0 (Negative) ??Sm Ab, IgG, S ? <0.2 ? U -- REFERENCE VALUE -- <1.0 (Negative) ??WEBSPHERE MESSAGE BROKER DEVELOPER Ab, IgG, S ?<0.2 ? U -- REFERENCE VALUE -- <1.0 (Negative) ??Scl 70 Ab, IgG, S ? <0.2 ?U -- REFERENCE VALUE -- <1.0 (Negative) ??Damaris 1 Ab, IgG, S ? <0.2 ?U -- REFERENCE VALUE -- <1.0 (Negative) Test Performed by: [facility] [place] [address] Insurance Healthcare Representative: Ashanti Frazier, Ph.D. Specimen Anatomical Collection Method Collection Time Receive d Time (Source) Location / / Volume Laterality Blood specimen 10/05/2014 11:05 4 (specimen) AM EST 11:58 AM EST Resulting Agency Comment Spec In Lab Karl Garcia MD IMMUNOLOGY ORDERABLES Performing Organization Address City/[facility]/[place] [address] CERNER MILLENNIUM Cyclic Citrullinated Peptide (10/05/2014 11:05 AM EST) P athologist Signature Anti-Cyc Cit <8.0 <=17.0 CERNER Peptide unit/mL MILLENNIUM Specimen Anatomical Collection Method Collection Time Receive d Time (Source) Location / / Volume Laterality Blood specimen 10/05/2014 11:05 4 (specimen) AM EST 11:12 AM EST Resulting Agency Comment Spec In Lab Karl Garcia MD CHEMISTRY ORDERABLES Performing Organization Address City/[facility]/ZIP Code Phon e Number ARIELLE SERAFIN[address] [facility] Rheumatoid factor, quant (10/05/2014 11:05 AM EST) athologist Signature RF <10 <=14 IU/mL [facility] Specimen Anatomical Collection Method Collection Time Receive d Time (Source) Location / / Volume Laterality Blood specimen 10/05/2014 11:05 4 (specimen) AM EST 11:12 AM EST Resulting Agency Comment Spec In Lab Karl Garcia MD IMMUNOLOGY ORDERABLES Performing Organization Address City/[facility]/ZIP Code Phon e Number [address] [facility] High Sensitivity CRP (10/05/2014 11:05 AM EST) athologist Signature CRP High Sens 1.9 mg/L [facility] Comment: Interpretations: 1) For accurate cardiac risk assessment, the average of 2 values >2 weeks apart should be obtained (ref 1&2). A value >1 0 mg/L indicates an inflammatory condition, concentrations >10 mg/L shoul d not be used for cardiac risk assessment. ?<1.0 mg/L: low risk ?1.0 - 3.0 mg/L: moderate risk ?>3.0 mg/L: high risk groups for fu ture cardiovascular events 2) The general reference range of appare ntly healthy individuals using this test is <5.0 mg/L (derived from the test package insert) References: 1. Caroline VANG et. al. ??AHA/CDC Scientif ic Statement: Markers of Inflammation and Cardiovascular Disease. ??Circulatio n 2003; 107:499-511 2. Ridker PM. ??Clinical applications of C-reactive protein for cardiovascular disease detection and prevention. ??Circ ulation 2003; 107:363-369 Specimen Anatomical Collection Method Collection Time Receive d Time (Source) Location / / Volume Laterality Blood specimen 10/05/2014 11:05 4 (specimen) AM EST 11:12 AM EST Resulting Agency Comment Spec In Lab Karl Garcia MD CHEMISTRY ORDERABLES Performing Organization Address City/[facility]/ZIP Code Phon e Number ARIELLE [address] [facility] VIT D Total Evaluation (10/05/2014 11:05 AM EST) athologist Signature 25-OH Vit D 44 30 - 100 CERNER Total ng/mL [facility] Comment: Deficient <10 ng/mL Insufficient 10 to 29 ng/mL Sufficient 30 to 100 ng/mL Potential Intoxication >100 ng/mL According to the [place] National Osteoporosi s Foundation, Vitamin D concentrations >30 ng/mL are sufficient to protect bone health. ??The National Kidney Foundation has similarly stated that pat ients with Vitamin D concentrations <30ng/mL should be considered to be insu fficient or deficient. http://[employer]/EeBrianatlkidneyfoundat ion http://[employer]/DHEASE TechnologiesVitD The [employer] Vitamin D Immunoassay detec ts both 25-OH Vitamin D2 and 25-OH Vitamin D3, but only a total Vitamin D c oncentration is reported. Specimen Anatomical Collection Method Collection Time Receive d Time (Source) Location / / Volume Laterality Blood specimen 10/05/2014 11: 4 (specimen) AM EST 11:12 AM EST Resulting Agency Comment Spec In Lab Karl Garcia MD CHEMISTRY ORDERABLES Performing Organization Address City/State/ZIP Code Phon e Number [address] [facility] TSH (10/05/2014 11:05 AM EST) athologist [facility] TSH 3.17 0.27 - 4.20 CERNER mcIU/mL [facility] Specimen Anatomical Collection Method Collection Time Receive d Time (Source) Location / / Volume Laterality Blood specimen 10/05/2014 11:05 4 (specimen) AM EST 11:12 AM EST Resulting Agency Comment Spec In Lab Karl Garcia MD CHEMISTRY ORDERABLES Performing Organization Address City/[facility]/ZIP Code Phon e Number [address] [facility] CK (10/05/2014 11:05 AM EST) athologist Signature CK, Total 68 0 - 160 CERNER unit/L MILLENNIUM Specimen Anatomical Collection Method Collection Time Receive d Time (Source) Location / / Volume Laterality Blood specimen 10/05/2014 11:05 4 (specimen) AM EST 11:12 AM EST Resulting Agency Comment Spec In Lab Karl Garcia MD CHEMISTRY ORDERABLES Performing Organization Address City/State/ZIP Code Phon e Number [address] CERNER MILLENNIUM Ferritin (10/05/2014 11:05 AM EST) athologist Signature Ferritin 55 30 - 400 CERNER ng/mL MILLENNIUM Comment: Pediatric reference ranges not verified at [facility], interpret with caution. Reference ranges for females greater brandon n 50 years of age approach values for men, i.e., 30-400 ng/mL. Specimen Anatomical Collection Method Collection Time Receive d Time (Source) Location / / Volume Laterality Blood specimen 10/05/2014 11:05 4 (specimen) AM EST 11:12 AM EST Resulting Agency Comment Spec In Lab Karl Garcia MD CHEMISTRY ORDERABLES Performing Organization Address City/State/ZIP Code Phon e Number [address] CERNER MILLENNIUM Iron and TIBC (10/05/2014 11:05 AM EST) athologist Signature Iron 74 30 - 150 CERNER mcg/dL MILLENNIUM TIBC 264 250 - 450 CERNER mcg/dL MILLENNIUM Iron Saturation 28 20 - 50 % CERNER MILLENNIUM Specimen Anatomical Collection Method Collection Time Receive d Time (Source) Location / / Volume Laterality Blood specimen 10/05/2014 11:05 4 (specimen) AM EST 11:12 AM EST Resulting Agency Comment Spec In Lab Karl Garcia MD CHEMISTRY ORDERABLES Performing Organization Address City/State/ZIP Code Phon e Number [address] CERNER MILLENNIUM Sedimentation rate (10/05/2014 11:05 AM EST) athologist Signature Sed Rate 15 0 - 20 CERNER mm/hr MILLENNIUM Specimen Anatomical Collection Method Collection Time Receive d Time (Source) Location / / Volume Laterality Blood specimen 10/05/2014 11:05 4 (specimen) AM EST 11:12 AM EST Resulting Agency Comment Spec In Lab Karl Garcia MD HEMATOLOGY ORDERABLES Performing Organization Address City/State/ZIP Code Phon e Number ARIELLE [place] [id number] CERNER MILLENNIUM (ABNORMAL) Comprehensive metabolic panel (non-fasting) (10/05/2014 11:05 AM EST) P athologist Signature Glucose Lvl 93 60 - 199 CERNER mg/dL MILLENNIUM Comment: Diabetes: >=200 mg/dL plus symp toms BUN 13 8 - 18 mg/dL CERNER MILLENNIUM Creatinine 0.72 0.70 - 1.20 mg/dL CERNER MILL ENNIUM Comment: Please note that the pediatric reference intervals supplied above were not validated at [facility]. Results from pediatri c patients should be interpreted in conjunction to the patient's age, height and muscle mass. Sodium 140 135 - 145 mmol/L CERNER NARAYAN NIUM Potassium 3.9 3.5 - 5.0 mmol/L CERNER NARAYAN NIUM Comment: Please note: ??Patients with WBC >100,00 0 may have falsely elevated Potassium levels. ??For accurate Potassium quantif ication in these patients send serum separator tube (gold top) for subsequent determinations. ??Contact the Clinical Chemistry Laboratory if there are any qu estions. Chloride 103 98 - 107 mmol/L CERNER MILLENN IUM CO2 25 22 - 31 mmol/L CERNER MILLENNI UM Anion Gap 12 5 - 15 mmol/L CERNER MILLENNIU M Calcium 9.5 8.5 - 10.5 mg/dL CERNER NARAYAN NIUM Total Protein 7.6 6.4 - 8.3 gm/dL CERNER MIL LENNIUM Albumin 4.3 3.2 - 5.2 gm/dL CERNER MILLENN IUM AST 16 0 - 30 unit/L CERNER MILLENNIU M ALT 18 0 - 30 unit/L CERNER MILLENNIU M Alk Phos 57 40 - 104 unit/L CERNER MILLENN IUM Total Bilirubin <0.2 (L) 0.2 - 1.3 mg/dL CERNER Ted ILLENNIUM Bili, Direct <0.1 0.0 - 0.3 mg/dL CERNER MILL ENNIUM Estimated GFR >60 >=60 KP SOLOMONFREDYBEREKET Jean Comment: This estimated GFR (eGFR) value was calc ulated using the MDRD equation which has been validated on patients between t he ages of 18 and 70. The MDRD should not be used to assess kidney function in patients < 18 years of age or in patients with extremes of body mass, or in patients with acute kidney failure. This value should be multiplied by 1.2 f or patients. For further information please copy and past e the following links into your internet browser. http://[employer]/DHnkdep http://[employer]/DHMCnkf Specimen Anatomical Collection Method Collection Time Receive d Time (Source) Location / / Volume Laterality Blood specimen 10/05/2014 11:05 4 (specimen) AM EST 11:12 AM EST Resulting Agency Comment Spec In Lab Karl Garcia MD CHEMISTRY ORDERABLES Performing Organization Address City/State/[place] [address] KP ROME documented in this encounter Visit Diagnoses Diagnosis IGOR positive Other and unspecified nonspecific immuno logical findings Joint pain Pain in joint, site unspecified Back pain Backache, unspecified Neck pain Cervicalgia Hematuria Hematuria, unspecified documented in this encounter Care Teams Shipper Relationship Specialty Start Date End Date Angie Butler APRN PCP - General 10/21/10 documented as of this encounter
== END 2022-08-05 13:57 | disposition home or self-care (01) ==
LOC: LBN 13:56
PROVIDERS: PCP Physician Assistant Medical; Visit Provider Nurse Practitioner Gerontology
DX: R39.9 Unspecified symptoms and signs involving the genitourinary system (principal)
CPT/HCPCS: 87086

== ENCOUNTER 2022-08-10 16:06 | Outpatient (REF) | payer MEDICAID, SELFPAY ==
[2022-08-10 16:23] LABS: Anion Gap 8.3 mmol/L (3-11); BUN 18 mg/dL (7-18); CO2 25.7 mmol/L (21.0-32.0); CREATININE 0.8 mg/dL (0.55-1.02); Calcium 8.9 mg/dL (8.5-10.1); Calculated LDL 155 mg/dL (<100); Chloride 105 mmol/L (98-107); Cholesterol 234 mg/dL (<200); Estimated GFR 81.72 (mL/min/1.73m2); Glucose 99 mg/dL (74-106); HDL Cholesterol 53 mg/dL (40-60); Sodium 139 mmol/L (136-145); Triglyceride 130 mg/dL (<150)
== END 2022-08-10 16:07 | disposition home or self-care (01) ==
LOC: NCHCN 16:06
PROVIDERS: PCP Physician Assistant Medical; Visit Provider Physician Assistant Medical
DX: Z13.1 Encounter for screening for diabetes mellitus (principal); Z13.220 Encounter for screening for lipoid disorders; N32.89 Other specified disorders of bladder; Z00.8 Encounter for other general examination
CPT/HCPCS: 80048; 80061

== ENCOUNTER 2023-03-09 01:14 | Outpatient (CLI) | payer MEDICAID, SELFPAY ==
--- NOTE | 2023-03-09 | DI.MAMMO_ITS ---
Exam(s) MAMMO SCREENING EXAM: MAMMO SCREENING CLINICAL HISTORY: SCREENING MAMMO FOR BREAST CANCER Z12.31. TECHNIQUE: Bilateral full field digital CC and MLO mammographic images were obtained with 3D tomosyn thesis and utilizing computer aided detection (CAD). COMPARISON: Prior mammograms were reviewed. FINDINGS: There has been no significant change in the appearance and distribution of the fibroglandular tissue. There are no new spiculated masses nor malignant appearing microcalcification groups. There is no significant architectural distortion nor skin thickening-retraction. IMPRESSION: No radiographic evidence of malignancy. BI-RADS Category 1 - Negative Breast Density - Category B - Scattered areas of fibroglandular density Breast density Category C or D implies that the patient has dense breast tissue. Dense breast tissue can make it harder to find cancer on a mammogram. Dense breast tissue is also associated with an incr eased risk of breast cancer. This information about the result of the mammogram report was provided to the patient to raise their awareness. Use this report when you speak with the patient about their risks for breast cancer, which includes their family history. At that time, you may recommend additional screening tests (Ultrasoun d or MRI) as these tests may add significant information. A negative radiographic report should not delay biopsy if a dominant or clinically suspicious mass is present. Up to ten percent of cancers are not identified on mammography. A negative report may reinforce clinical impression. Adenosis and dense breasts may obscure an underlying neoplasm. False positive reports average 6 to 10%. Patient will receive a letter notifying them of these results.
== END 2023-03-09 01:34 ==
LOC: DI 01:15
PROVIDERS: PCP Physician Assistant Medical; Visit Provider Physician Assistant Medical
DX: Z12.31 Encounter for screening mammogram for malignant neoplasm of breast (principal)
CPT/HCPCS: 77063; 77067

== ENCOUNTER 2023-11-19 22:13 | Outpatient (REF) | payer SELFPAY | END 2023-11-19 22:14 | disposition home or self-care (01) | LOC: NCHCN 22:13 | PROVIDERS: PCP Physician Assistant Medical; Visit Provider Physician Assistant Medical | DX: R30.0 Dysuria (principal) | CPT/HCPCS: 87077; 87086; 87186 ==

== ENCOUNTER 2024-01-07 13:43 | Emergency (ER) | payer MEDICARE, MEDICAID, SELFPAY ==
[2024-01-07 13:48] VITALS: BP 110/51; PULSE 66; RESP 16; TEMP 36.5; O2SAT 100
--- NOTE | 2024-01-07 14:00 | DI.CT_ITS ---
Exam(s) CT ABDOMEN PELVIS WO EXAM: CT ABDOMEN PELVIS WO CLINICAL HISTORY: right flank pain hx kidney stones. TECHNIQUE: Imaging Protocol: Axial computed tomography images with coronal and sagittal reformatted images were created and reviewed CONTRAST MATERIAL: Intravenous: none Oral: None COMPARISON: CT CT CHEST PE CTA from 12/20/2019 FINDINGS: VISUALIZED LUNG BASES: No nodules nor pleural effusions evident. ABDOMEN: There is no ascites. LIVER: There are no obvious focal hepatic lesions evident of this noninfused study. GALLBLADDER/BILIARY: Gallbladder surgically absent. CBD not dilated. CBD is not dilated. PANCREAS: There is a 1.1 x 0.6 x 1.2 cm hypodensity in the pancreatic head at junction with the uncin ate process which exhibits predominately fat density (-62 HU). On the sagittal images the appearance is that of probable invagination of adjacent fat into the gland. The pancreatic duct is not dilated .. There is no regional lymphadenopathy. SPLEEN: Spleen is not enlarged. No obvious intrasplenic lesions. ADRENALS: There are no significant adrenal masses. KIDNEYS:Bilateral extrarenal pelves. There is a E unchanged cyst in the superior pole of the right k idney measuring 1.5 cm. No radiopaque calculi. No hydronephrosis. Bilateral extrarenal pelves. No dilatation of the ureters. There are no radiopaque calculi in the urinary bladder but there is asym metric bladder wall thickening on the right side. ABDOMINAL AORTA: Peripherally calcified but not enlarged. Iliac arteries peripherally calcified but not enlarged. LYMPH NODES: There is no retroperitoneal nor paraaortic adenopathy. ABDOMINAL WALL: No evidence of significant anterior abdominal wall nor inguinal hernia. GI: There is no evidence of bowel obstruction, free air, nor abscess. PELVIS: LYMPH NODES: There is no intrapelvic nor inguinal adenopathy. GI: No evidence of appendicitis.No evidence of sigmoid diverticulitis. URINARY BLADDER: Abnormal right-sided wall thickening. REPRODUCTIVE: Uterus and adnexal regions appear age-appropriate. No free fluid. OSSEOUS: No significant osseous lesions. IMPRESSION: 1. No evidence of renal tract calculi and no hydronephrosis. 2. Asymmetric thickening of the right-side of the urinary bladder wall is noted. Cystoscopy recommen ded 3. Incidentally noted is a hypodensity in the pancreatic head at its junction with the uncinate proce ss measuring 7 x 6 x 12 mm. This exhibits fat density and may just represent invagination of adjacen t retroperitoneal fat into the organ, as opposed to a neoplasm. Nevertheless, recommend follow-up pa ncreatic protocol contrast infused MRI. 4. Previous cholecystectomy. Biliary tree is not dilated. Report called to ER physician. RADIATION DOSE DELIVERED: 767.35mGy.cm Total DLP DATA REPOSITORY: All CT scans at this facility are submitted to the National Radiology Data Registry (NRDR) Dose Index Registry (DIR) with the [employer] (ACR). RADIATION OPTIMIZATION: All CT scans at this facility use at least one of these dose optimization te chniques: automated exposure control; mA and/or kV adjustment per patient size (includes targeted exa ms where dose is matched to clinical indication); or iterative reconstruction.
[2024-01-07 14:13] LABS: Bilirubin Negative (Negative); Blood Trace-intact (Negative); Clarity Clear (Clear); Glucose Negative (Negative); Ketones Negative (Negative); Leukocyte Esterase Trace (Negative); Nitrite Positive (Negative); Specific Gravity 1.015 (1.005-1.025); Urobilinogen 0.2 mg/dL (Up to 0.2); pH >= 9.0 (5-8)
--- NOTE | 2024-01-07 14:13 | ED.GENADUL_ITS ---
HPI General Date/Time Provider Initiated Documentation: 01/07/24 13:51 . HPI Narrative: 68-year-old female history of kidney stones and UTIs presents with right flank pain over the last day associate with mild nausea. Related Data Home Medications Medication Instructions Recorded Confirmed aspirin 81 mg tablet,delayed 1 tab PO DAILY 01/09/15 01/07/24 release (Aspir-) multivitamin 1 cap PO DAILY 01/09/15 01/07/24 pantoprazole 40 mg tablet,delayed 40 mg PO DAILY PRN 05/25/17 01/07/24 release vitamin B complex (B-Complex 1 ea PO DAILY 05/25/17 01/07/24 tablet) meclizine 12.5 mg tablet 12.5 mg PO Q6H PRN PRN 08/09/19 01/07/24 calcium carbonate 600 mg-vitamin 2 cap PO DAILY 08/29/19 01/07/24 D3 12.5 mcg (500 unit) capsule (Calcium 600 with Vitamin D3) ibuprofen 800 mg tablet 800 mg PO TID PRN PRN #60 tabs 09/06/19 01/07/24 albuterol sulfate 90 mcg/actuation 2 inh inhalation ONCE PRN 10/23/19 01/07/24 aerosol inhaler loratadine 10 mg tablet 10 mg PO DAILY PRN 10/23/19 01/07/24 alendronate 70 mg tablet (Fosamax) 70 mg PO QWEEK 11/16/19 01/07/24 buspirone 7.5 mg tablet 7.5 mg PO BID 11/24/23 01/07/24 loratadine 10 mg tablet 10 mg PO DAILY 11/24/23 01/07/24 cefpodoxime 100 mg tablet 100 mg PO BID 7 days #14 tabs 01/07/24 Previous Rx's Medication Instructions Recorded ibuprofen 800 mg tablet 800 mg PO TID PRN PRN #60 tabs 09/06/19 cefpodoxime 100 mg tablet 100 mg PO BID 7 days #14 tabs 01/07/24 Allergies Allergy/AdvReac Type Severity Reaction Status Date / Time metronidazole [From Flagyl] AdvReac Intermediate rash, Verified 01/07/24 13:49 bleeding General Stated Complaint: FlankPain CHLOE: 3 Review of Systems Narrative: Review of Systems Constitutional: negative Eyes: negative ENT: negative Cardiovascular: negative Respiratory: negative Gastrointestinal: negative : Flank pain Musculoskeletal: negative Skin: negative Neurologic: negative Psych: negative Exam Narrative Exam Narrative: Physical Examination General: alert, awake, cooperative, resting comfortably, no acute distress HEENT: normocephalic, atraumatic; PERRL, EOM intact, conjunctiva normal; no nasal discharge; moist mucous membranes, oral and pharyngeal mucosa normal, tolerating secretions Neck: supple, trachea midline; full ROM Chest: normal to inspection Respiratory: normal respiratory effort, speaking in full sentences Skin: no lesions, rashes or trauma appreciated Course Vital Signs Vital signs: Vital Signs Temperature 36.5 C 01/07/24 13:48 Pulse 66 01/07/24 13:48 Respiratory Rate 16 01/07/24 13:48 Blood Pressure 110/51 L 01/07/24 13:48 Pulse Oximetry 100 01/07/24 13:48 Temperature 36.5 C 01/07/24 13:48 Temperature Source Skin 01/07/24 13:48 Pulse 66 01/07/24 13:48 Respiratory Rate 16 01/07/24 13:48 Respiratory Effort Normal, Non-Labored 01/07/24 13:50 Blood Pressure 110/51 L 01/07/24 13:48 Pulse Oximetry 100 01/07/24 13:48 Oxygen Delivery Method Room Air 01/07/24 13:48 Oxygen Flow Rate 0 01/07/24 13:48 Pain Level 6 01/07/24 14:00 Medical Decision Making 68-year-old female history of UTIs, kidney stones, presents with right flank pain over the last day associate mild nausea. Afebrile nontoxic. Consider UTI versus early pyelonephritis versus nephrolithiasis. Will obtain screening labs, CT abdomen pelvis without contrast, urinalysis, fluids analgesia anti- inflammatory antiemetics close reassessment 15: 42 evidence of UTI. Started cefpodoxime. Feeling better after medication. Asymmetric thickening of right side of urinary bladder, information relayed to patient will have her follow-up with urology for possible cystoscopy. 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 Cubital tunnel syndrome on right (Acute) Medical History (Updated 01/07/24 @ 15:47 by Cesar Pardo MD) Low back pain Carpal tunnel syndrome History of tobacco use IGOR positive Hyperlipidemia Carpal tunnel syndrome of left wrist Depression Bursitis of right hip Plantar fasciitis Dysuria Fever, unspecified Cough Blood glucose elevated Elbow pain, right Hx of injury Plantar fascitis L foot Hx of eye disorder cataract, R eye retina dx Hx of vertigo GERD (gastroesophageal reflux disease) Epigastric abdominal pain Surgical History section History of cataract surgery 09/06/19 pt denies cataract surgery History of cholecystectomy History of colonoscopy orif right elbow Repair, Rotator Cuff Left Tubal Ligation, Laparoscopic Family History Mother CHF (congestive heart failure) Father Diabetes CHF (congestive heart failure) Cataract Hypertension Brother NE (mitral incompetence) CAD (coronary artery disease) Schizophrenia Hx of CABG Brother Diverticulosis Bipolar 1 disorder Brother No problems noted. Son No problems noted. Son No problems noted. 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 Seatbelt use: always Helmet use: Yes Helmet use: always Working smoke detector in home: Yes Firearms in home: No Do you feel safe at home: Yes Do you feel safe in your relationship?: Yes Discharge Plan Disposition Patient Disposition: Home Condition: Improving Discharge Details Clinical Impression: Pancreatic abnormality, Bladder wall thickening, Acute UTI Primary Care Provider: Shara Burks ED Provider: Cesar Pardo Home Meds and New Rx's Prescriptions: New cefpodoxime 100 mg tablet 100 mg PO BID 7 Days Qty: 14 0RF Rx Instructions: must administer with a meal/food No Action alendronate [Fosamax] 70 mg tablet 70 mg PO QWEEK meclizine 12.5 mg tablet 12.5 mg PO Q6H PRN PRN albuterol sulfate 90 mcg/actuation Hfa Aerosol Inhaler 2 inh INHALATION ONCE PRN loratadine 10 mg Tablet 10 mg PO DAILY PRN buspirone 7.5 mg tablet 7.5 mg PO BID loratadine 10 mg tablet 10 mg PO DAILY aspirin [Aspir-81] 81 MG tablet,delayed release (DR/EC) 1 tab PO DAILY multivitamin 1 EACH capsule 1 cap PO DAILY pantoprazole 40 MG tablet,delayed release (DR/EC) 40 mg PO DAILY PRN vitamin B complex [B-Complex] 1 EACH tablet 1 ea PO DAILY calcium carbonate-vitamin D3 [Calcium 600 with Vitamin D3] 600 mg(1,500mg) - 500 unit Capsule 2 cap PO DAILY ibuprofen 800 MG tablet 800 mg PO TID PRN PRNQty: 60 0RF Discharge Instructions Instructions: Urinary Tract Infection in Women (ED) Additional Instructions: Please follow-up with urology team as a portion of your bladder was found to be thickened this might require further testing and imaging. Please follow-up with your primary care physician and discuss scheduling MRI of your abdomen to assess your pancreas as there was an abnormality seen on CT scan today. If you have any issues obtaining further care or any worsening symptoms please return to the emergency department.
[2024-01-07 14:27] LABS: Abs Immature Grans 0.01 10^3/uL (0.0-0.06); Absolute Basophil Count 0.02 10^3/uL (0.0-0.2); Absolute Eosinophil Count 0.16 10^3/uL (0.0-0.7); Absolute Lymphocyte Count 1.77 10^3/uL (1.2-3.4); Absolute Monocyte Count 0.42 10^3/uL (0.1-0.8); Absolute Neutrophil Count 3.37 10^3/uL (1.2-6.7); Basophils % 0.3; Eosinophils % 2.8; HCT 36.4 % (36.0-46.0); HGB 12.1 g/dL (11.2-15.7); Immature Grans % 0.2; Lymphocytes % 30.8; MCH 28.9 pg (27.0-33.0); MCHC 33.2 % (32.0-36.0); MCV 87 fL (80-95); MPV 9.1 fL (8.0-11.0); Monocytes % 7.3; Neutrophils % 58.6; Platelet Count 159 10^3/uL (130-400); RBC 4.19 10^6/uL (3.93-5.22); RDW 13.2 % (11.7-14.6); RDW-SD 41.5 fL; WBC 5.75 10^3/uL (4.4-10.8)
[2024-01-07] MEDS: Cefpodoxime 200 MG TAB PO (14:42)
[2024-01-07] MEDS: Normal Saline 1,000 ML 1000 ML IV (14:43)
[2024-01-07] MEDS: Ondansetron 4 MG/2 ML VIAL IVP (14:43)
[2024-01-07] MEDS: Ketorolac 15 MG/ML VIAL IVP (14:43)
[2024-01-07 14:49] LABS: ALT 19 U/L (14-59); AST 12 U/L (15-37); Albumin 3.5 g/dL (3.4-5.0); Alkaline Phosphatase 55 U/L (46-116); Anion Gap 8.2 mmol/L (3-11); BUN 16 mg/dL (7-18); Bilirubin, Total 0.2 mg/dL (0.2-1.0); CO2 28.8 mmol/L (21.0-32.0); CREATININE 0.7 mg/dL (0.55-1.02); Calcium 8.5 mg/dL (8.5-10.1); Chloride 103 mmol/L (98-107); Estimated GFR 95.32 (mL/min/1.73m2); Glucose 112 mg/dL (74-106); Potassium 3.1 mmol/L (3.5-5.1); Sodium 140 mmol/L (136-145); Total Protein 7.3 g/dL (6.4-8.2)
[2024-01-07 14:52] LABS: Bacteria Many HPF (Negative); C & S Indicated? Yes; Epithelial Cells Rare HPF (Negative)
[2024-01-07 15:59] VITALS: BP 126/87; PULSE 74; RESP 16; O2SAT 98
--- NOTE | 2024-01-07 16:15 | NUR.NOTE ---
Nursing Note: PT needs follow up with [facility] urology in one week for bladder wall thickening. Erica, ED
== END 2024-01-07 16:00 | disposition home or self-care (01) ==
PROVIDERS: Emergency Provider Emergency Medicine; PCP Physician Assistant Medical
DX: N39.0 Urinary tract infection, site not specified (principal); K86.9 Disease of pancreas, unspecified; R93.41 Abnormal radiologic findings on diagnostic imaging of renal pelvis, ureter, or bladder; E78.5 Hyperlipidemia, unspecified; Z90.49 Acquired absence of other specified parts of digestive tract; Z79.82 Long term (current) use of aspirin; Z87.891 Personal history of nicotine dependence
CPT/HCPCS: 36415; 80053; 87077; 96361; 96374; 96375; 99284; 74176; 81003; 81015; 85025; 87086; 87186; J1885; J2405

== ENCOUNTER → 2024-01-10 13:07 | Outpatient (BNVA) | payer MEDICARE, MEDICAID, SELFPAY | PROVIDERS: PCP Physician Assistant Medical; Referring Provider Physician Assistant Medical; Visit Provider Student in an Organized Health Care Education/Training Program | DX: G56.02 Carpal tunnel syndrome, left upper limb (principal); M65.331 Trigger finger, right middle finger; M65.332 Trigger finger, left middle finger | CPT/HCPCS: 99213 ==

== ENCOUNTER 2024-01-19 16:14 | Outpatient (REF) | payer MEDICARE, MEDICAID, SELFPAY ==
[2024-01-19 20:58] LABS: Amylase 39 U/L (25-115); Lipase 27 U/L (16-77)
== END 2024-01-19 16:15 | disposition home or self-care (01) ==
LOC: NCHCN 16:14
PROVIDERS: PCP Physician Assistant Medical; Referring Provider Physician Assistant Medical; Visit Provider Physician Assistant Medical
DX: K86.89 Other specified diseases of pancreas (principal)
CPT/HCPCS: 83690; 82150

== ENCOUNTER → 2024-02-29 10:05 | Outpatient (BNVA) | payer MEDICARE, SELFPAY | PROVIDERS: PCP Physician Assistant Medical; Referring Provider Physician Assistant Medical; Visit Provider Nurse Practitioner Gerontology | DX: N32.89 Other specified disorders of bladder (principal); N39.0 Urinary tract infection, site not specified | CPT/HCPCS: 51798; 81003; 99214 ==

== ENCOUNTER 2024-02-29 14:03 | Outpatient (REF) | payer MEDICARE, SELFPAY | END 2024-02-29 14:04 | disposition home or self-care (01) | LOC: LBN 14:03 | PROVIDERS: PCP Physician Assistant Medical; Referring Provider Nurse Practitioner Gerontology; Visit Provider Nurse Practitioner Gerontology | DX: N39.0 Urinary tract infection, site not specified (principal) | CPT/HCPCS: 87077; 87086; 87186 ==

== ENCOUNTER 2024-05-10 10:09 | Day surgery (SDC) | payer MEDICARE, SELFPAY ==
--- NOTE | 2024-05-10 10:05 | PDOC.DSDIS_ITS ---
Date of service: 05/10/24 Time of Service: 10:05 Discharge Plan Disposition Patient Disposition: Home Condition: Good Discharge Details Reason For Visit: L ECTR/LMF Trigger Release. RMF Trigger injection Attending Provider: Marco A Horvath Primary Care Provider: Shara Burks Home Meds and New Rx's Prescriptions: New hydrocodone-acetaminophen 5-325 mg tablet 1 tab PO Q6H PRN (Reason: pain) Qty: 3 0RF acetaminophen 500 mg tablet 1,000 mg PO TID Qty: 90 0RF ibuprofen 600 mg tablet 600 mg PO TID PRN (Reason: pain) Qty: 90 0RF Continued alendronate [Fosamax] 70 mg tablet 70 mg PO QWEEK meclizine 12.5 mg tablet 12.5 mg PO Q6H PRN PRN estradiol 0.01 % (0.1 mg/gram) cream 1 g vaginal DIRECTED Qty: 60 3RF Rx Instructions: Apply a pea sized amount vaginally nightly for 2 weeks, then reduce to 2 times per week albuterol sulfate 90 mcg/actuation Hfa Aerosol Inhaler 2 inh INHALATION ONCE PRN loratadine 10 mg Tablet 10 mg PO DAILY PRN buspirone 7.5 mg tablet 7.5 mg PO BID aspirin [Aspir-81] 81 MG tablet,delayed release (DR/EC) 1 tab PO DAILY multivitamin 1 EACH capsule 1 cap PO DAILY pantoprazole 40 MG tablet,delayed release (DR/EC) 40 mg PO DAILY PRN vitamin B complex [B-Complex] 1 EACH tablet 1 ea PO DAILY calcium carbonate-vitamin D3 [Calcium 600 with Vitamin D3] 600 mg(1,500mg) - 500 unit Capsule 2 cap PO DAILY Discontinued ibuprofen 800 MG tablet 800 mg PO TID PRN PRNQty: 60 0RF Discharge Instructions Stand Alone Forms: [place] C. Tunnel Release, [place] T. Finger Release Activity:: Activity as Tolerated Remove Dressings/Wound Care:: 48 hours Shower/Bathe:: 48 hours Diet:: As Tolerated Discharge Orders Discharge Orders: Discharge Order (Routine); Ordered 05/10/24 Ordered By: Mario Patricia
[2024-05-10 11:05] VITALS: BP 105/80; PULSE 68; RESP 16; TEMP 36.5; O2SAT 99
[2024-05-10] MEDS: Lactated Ringers 1,000 ML 80 ML IV (11:09)
--- NOTE | 2024-05-10 12:07 | W.ANESPRE ---
General Info Date of Service Date Performed: 05/10/24 Height: 4 ft 10 in Weight: 62.3 kg Body Mass Index (BMI): 28.7 Surgical Procedure: Operation Date: 05/10/24 13:25 Proposed Procedure Side Surgeon p Wrist ECTR Left Marco A Horvath MD s Trigger Finger Release LMF, RMF Bilateral Marco A Horvath MD s Injection Marco A Horvath MD Meds Allergies and Home Medications Allergies Allergy/AdvReac Type Severity Reaction Status Date / Time metronidazole [From Flagyl] AdvReac Intermediate rash, Verified 05/10/24 11:03 bleeding Home Medication Medication Instructions Recorded aspirin 81 mg tablet,delayed 1 tab PO DAILY 01/09/15 release (Aspir-) multivitamin 1 cap PO DAILY 01/09/15 pantoprazole 40 mg tablet,delayed 40 mg PO DAILY PRN 05/25/17 release vitamin B complex (B-Complex 1 ea PO DAILY 05/25/17 tablet) meclizine 12.5 mg tablet 12.5 mg PO Q6H PRN PRN 08/09/19 calcium carbonate 600 mg-vitamin 2 cap PO DAILY 08/29/19 D3 12.5 mcg (500 unit) capsule (Calcium 600 with Vitamin D3) albuterol sulfate 90 mcg/actuation 2 inh inhalation ONCE PRN 10/23/19 aerosol inhaler loratadine 10 mg tablet 10 mg PO DAILY PRN 10/23/19 alendronate 70 mg tablet (Fosamax) 70 mg PO QWEEK 11/16/19 estradiol 0.01% (0.1 mg/gram) 1 g vaginal DIRECTED #60 grams 02/29/24 vaginal cream acetaminophen 500 mg tablet 1,000 mg (2 x 500 mg) PO TID #90 05/10/24 tabs hydrocodone 5 mg-acetaminophen 325 1 tab PO Q6H PRN pain #3 tabs 05/10/24 mg tablet ibuprofen 600 mg tablet 600 mg PO TID PRN pain #90 tabs 05/10/24 Current Visit Medications: Current Medications Generic Name Dose Route Start Last Admin Trade Name Freq PRN Reason Stop Dose Admin Acetaminophen 650 mg 05/10/24 10:02 Acetaminophen 325 Mg Tab PO 06/09/24 10:01 Q4H PRN PRN Hydrocodone Bitart/Acetaminophen 0 tab 05/10/24 10:02 Hydrocodone 5/Acetaminophen 325 Tab PO 06/09/24 10:01 Q3H PRN PRN Pain Ringer's Solution 1,000 mls @ 80 mls/hr 05/10/24 06:00 05/10/24 11:09 IV 05/10/24 23:59 80 mls/hr INFUSION BILL Administration Cefazolin Sodium/Dextrose 2 gm in 50 mls @ 100 mls/hr 05/10/24 06:00 Ancef Duplex IVPB 05/10/24 23:59 PREOP BILL IV Miscellaneous Supplies 1 each 05/10/24 06:00 Iv Access IV 05/10/24 23:59 DIRECTED BILL Sodium Chloride 0 ml 05/10/24 06:00 Normal Saline Flush 10 Ml Syr IV 05/10/24 23:59 PRN PRN Sodium Chloride 0 ml 05/10/24 06:00 Normal Saline 10 Ml Vial IJ 05/10/24 23:59 DIRECTED PRN Sterile Water 0 ml 05/10/24 06:00 Water,Injection,Sterile 10 Ml Vial IJ 05/10/24 23:59 DIRECTED PRN PFSH Active Problems Active Problems: Problem Status Onset Code Age related osteoporosis M81.0 Polyarthritis, unspecified M13.0 Other specified disorders of bladder N32.89 Acute pharyngitis J02.9 Acute respiratory disease J06.9 Acute sinusitis, unspecified J01.90 Alcohol abuse F10.10 Trigger finger, left middle finger M65.332 Trigger finger, right middle finger M65.331 Carpal tunnel syndrome of left wrist G56.02 Rib contusion S20.219A UTI (urinary tract infection) N39.0 Bladder distention N32.89 Medical History Medical History Low back pain History of tobacco use IGOR positive Hyperlipidemia Depression Bursitis of right hip Plantar fasciitis Dysuria Fever, unspecified Cough Blood glucose elevated Elbow pain, right Hx of injury Plantar fascitis L foot Hx of eye disorder cataract, R eye retina dx Hx of vertigo GERD (gastroesophageal reflux disease) Epigastric abdominal pain Surgical History Surgical History History of cataract surgery 09/06/19 pt denies cataract surgery History of cholecystectomy History of colonoscopy orif right elbow Tubal Ligation, Laparoscopic Repair, Rotator Cuff Left section Tobacco Smoking/Tobacco Use Status: Former Tobacco Use Alcohol Alcohol Intake: current Alcohol intake frequency: a few times a week Alcohol type: beer Substance Use Substance use: Never Substance use type: does not use Vital Signs and Lab Results Vital Signs Most Recent Vital Signs in EMR: Most Recent Vital Signs Temp Pulse Resp BP Pulse Ox 36.5 C 68 16 105/80 99 05/10/24 11:05 05/10/24 11:05 05/10/24 11:05 05/10/24 11:05 05/10/24 11:05 Lab Results Blood Type / Crossmatch: No Data to Display Complete Blood Count: No Data to Display Complete Metabolic Panel: No Data to Display Liver Function Panel: No Data to Display Coagulation Panel: No Data to Display Cardiac Panel: No Data to Display Arterial Blood Gas: No Data to Display Venous Blood Gas: No Data to Display Pancreas Panel: No Data to Display Thyroid Panel: No Data to Display Infectious Disease: No Data to Display Blood Cultures: No Data to Display Toxicology Panel: No Data to Display Anesthesia Assessment and Plan Anesthesia History Personal History: No History of Anesthesia Complications Family History: No Family History of Anesthesia Complications Exercise Tolerance Exercise Tolerance: Metabolic Equivalents>4 Pertinent Negatives Pertinent Negatives: No Symptoms of GERD Cardiac & Pulmonary Exam Cardiac Exam: Normal S1/S2 Heart Sounds Pulmonary Exam: Clear Bilateral Breath Sounds Implantable Cardiac Device Does patient have a Pacemaker or an ICD?: No Airway Exam Known Difficult Airway: No Mallampati Class: 2 Mouth Opening: Normal (> 3cm) Thyromental Distance: Greater than 3 cm Neck Range of Motion: Full ROM Neck Circumference: Normal Teeth Condition: Normal Dentition ASA Classification ASA Score: ASA 2 Emergency Case?: No NPO Status NPO Status: NPO Clears >2 hours, Solids >8 hours Anesthesia Plan Resuscitation Status: Full Code Anesthesia Technique: MAC Anesthesia Airway Planned: Natural Airway Monitors Used: Standard Monitors
[2024-05-10 12:08] VITALS: BMI 28.7
--- NOTE | 2024-05-10 12:20 | HPE_ITS ---
Assessment and Plan Assessment and plan (1) Carpal tunnel syndrome of left wrist: Status: Acute Assessment and plan: Ellie is a 68-year-old female who has ongoing carpal tunnel syndrome on the left side. She has failed nonoperative options and is here today for carpal tunnel release. She has had a release of the right side with good success. I reviewed the release with her. I discussed the technical details of endoscopic carpal tunnel release. I discussed the risk to include bleeding, infection, pain, stiffness, continued numbness, continued symptoms. She also has a trigger finger of the left middle finger and the right middle finger. I offered operative treatment of the left middle finger at the same time as the carpal tunnel. However, I would avoid given the open trigger finger release on the right side, making 2 hands limited for period of time. I would offer the injection to the right middle finger while she is under anesthesia. She would like to proceed with that plan as we had previously discussed. I reviewed the trigger finger release with her. I discussed risk to include continued symptoms, damage to nerves and vessels, pain, stiffness, bleeding, infection. Despite these risk, she elects to proceed. (2) Trigger finger, right middle finger: Status: Acute (3) Trigger finger, left middle finger: Status: Acute History of Present Illness History of Present Illness Chief Complaint: Bilateral Middle Finger Trigger Fingers, Left Carpal Tunnel Syndrome Narrative: Ellie is a 68-year-old female who presents today for surgery about her left hand, middle finger trigger finger and carpal tunnel syndrome, as well as an injection for the right hand, middle finger trigger finger. Please see the previous office note for complete detailed history. There is been no change in her history. She denies any new trauma or new issues. Her symptoms are largely unchanged. She denies chest pain or shortness of breath. No new illness. Review of Systems All systems reviewed & are unremarkable except as noted in HPI and below PFSH All Active Problems Age related osteoporosis (Acute) Polyarthritis, unspecified (Acute) Other specified disorders of bladder (Acute) Acute pharyngitis (Acute) Acute respiratory disease (Acute) Acute sinusitis, unspecified (Acute) Alcohol abuse (Chronic) Trigger finger, left middle finger (Acute) Trigger finger, right middle finger (Acute) Carpal tunnel syndrome of left wrist (Acute) Rib contusion (Acute) UTI (urinary tract infection) (Acute) Bladder distention (Acute) Medical History Low back pain History of tobacco use IGOR positive Hyperlipidemia Depression Bursitis of right hip Plantar fasciitis Dysuria Fever, unspecified Cough Blood glucose elevated Elbow pain, right Hx of injury Plantar fascitis L foot Hx of eye disorder cataract, R eye retina dx Hx of vertigo GERD (gastroesophageal reflux disease) Epigastric abdominal pain Surgical History History of cataract surgery 09/06/19 pt denies cataract surgery History of cholecystectomy History of colonoscopy orif right elbow Tubal Ligation, Laparoscopic Repair, Rotator Cuff Left section Family History Mother CHF (congestive heart failure) Father Diabetes CHF (congestive heart failure) Cataract Hypertension Brother DE (mitral incompetence) CAD (coronary artery disease) Schizophrenia Hx of CABG Brother Diverticulosis Bipolar 1 disorder Brother No problems noted. Son No problems noted. Son No problems noted. 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 Seatbelt use: always Helmet use: Yes Helmet use: always Working smoke detector in home: Yes Firearms in home: No Do you feel safe at home: Yes Do you feel safe in your relationship?: Yes Meds Allergies and Home Medications Allergies Allergy/AdvReac Type Severity Reaction Status Date / Time metronidazole [From Flagyl] AdvReac Intermediate rash, Verified 05/10/24 11:03 bleeding Home Medications Medication Instructions Recorded Confirmed Type aspirin 81 mg tablet,delayed 1 tab PO DAILY 01/09/15 05/10/24 History release (Aspir-) multivitamin 1 cap PO DAILY 01/09/15 05/10/24 History pantoprazole 40 mg tablet,delayed 40 mg PO DAILY PRN 05/25/17 05/10/24 History release vitamin B complex (B-Complex 1 ea PO DAILY 05/25/17 05/10/24 History tablet) meclizine 12.5 mg tablet 12.5 mg PO Q6H PRN PRN 08/09/19 05/10/24 History calcium carbonate 600 mg-vitamin 2 cap PO DAILY 08/29/19 05/10/24 History D3 12.5 mcg (500 unit) capsule (Calcium 600 with Vitamin D3) albuterol sulfate 90 mcg/actuation 2 inh inhalation ONCE PRN 10/23/19 05/10/24 History aerosol inhaler loratadine 10 mg tablet 10 mg PO DAILY PRN 10/23/19 05/10/24 History alendronate 70 mg tablet (Fosamax) 70 mg PO QWEEK 11/16/19 05/10/24 History estradiol 0.01% (0.1 mg/gram) 1 g vaginal DIRECTED #60 grams 02/29/24 05/10/24 Rx vaginal cream acetaminophen 500 mg tablet 1,000 mg (2 x 500 mg) PO TID #90 05/10/24 Rx tabs hydrocodone 5 mg-acetaminophen 325 1 tab PO Q6H PRN pain #3 tabs 05/10/24 Rx mg tablet ibuprofen 600 mg tablet 600 mg PO TID PRN pain #90 tabs 05/10/24 Rx Exam Const General: cooperative, healthy appearing, comfortable and no acute distress Resp Effort & Inspection: normal respiratory effort Auscultation: clear to auscultation bilaterally Cardio Rate: regular rate Rhythm: regular rhythm Results Last Vital Signs Temp 36.5 C 05/10/24 11:05 Pulse 68 05/10/24 11:05 Resp 16 05/10/24 11:05 BP 105/80 05/10/24 11:05 Pulse Ox 99 05/10/24 11:05
[2024-05-10] MEDS: ceFAZolin 2 GM/50 ML BAG IVPB (13:35)
[2024-05-10] MEDS: Lidocaine 1% Multi-Dose W/EPI 1/100,000 50 ML VIAL (13:42)
[2024-05-10] MEDS: methylPREDNISolone ACETATE 80 MG/ML VIAL (13:52)
[2024-05-10 14:01] VITALS: BP 92/53; PULSE 75; RESP 16; TEMP 36.2; O2SAT 95
--- NOTE | 2024-05-10 14:06 | W.ANESPOSTOP ---
Postoperative Evaluation Date, Time and Location Date Performed: 05/10/24 Time Performed: 14:06 Patient Location: Day Surgery Unit Vital Signs Most Recent Imported Vital Signs: Most Recent Vital Signs Temp Pulse Resp BP Pulse Ox 36.2 C L 75 16 92/53 L 95 05/10/24 14:01 05/10/24 14:01 05/10/24 14:01 05/10/24 14:01 05/10/24 14:01 Pain Score Most Recent Pain Score: Most Recent Pain Score Pain Level 0 05/10/24 14:01 Assessment Mental Status: Awake (Alert & Oriented to Patient Baseline) Airway and Respiratory Function: Patent airway with normal (patient baseline) respiratory exam Cardiovascular Function: Hemodynamically Stable Hydration Status: Adequately Hydrated Nausea & Vomiting: No Nausea or Vomiting Pain: Pt. Denies Any Pain Peripheral Nerve Block: Patient did not receive a nerve block
[2024-05-10 14:28] VITALS: BP 109/68; PULSE 76; RESP 16; TEMP 36.6; O2SAT 97
--- NOTE | 2024-05-10 14:47 | ROE_ITS ---
Date of service: 05/10/24 Time of Service: 13:45 Operative Note Operative Note DATE OF PROCEDURE: 05/10/24 PRE-OP DIAGNOSIS: Left Carpal Tunnel Syndrome Left Middle Finger Trigger Finger Right Middle Finger Trigger Finger POST-OP DIAGNOSIS: same PROCEDURE: Left Endoscopic Carpal Tunnel Release Left Middle Finger Trigger (A1 Ashley) Release Right Middle Finger Trigger Injection SURGEON: Marco A Horvath ANESTHESIA TYPE: General:No Airway Refer to Anesthesia Record ESTIMATED BLOOD LOSS: 0 PATHOLOGY: none sent TOURNIQUET TIME: 8 COMPLICATIONS: None Patient was transported to: same day Patient's condition: stable Indications: I have seen Ellie in clinic for symptoms of carpal tunnel syndrome along with bilateral middle finger trigger fingers. The numbness, tingling, and pain limited function. Clinical exam findings with nerve conduction tests confirmed the diagnosis of carpal tunnel syndrome. Nonoperative measures such as bracing, time, activity modifications had been tried but disability and pain persisted. I discussed carpal tunnel release with the patient. I reviewed the risks of the procedure to include, but not limited to, bleeding, infection, pain, stiffness, incomplete release, damage to nerves or vessels, persistent numbness, recurrence. Despite these risks, the patient elected to proceed. Findings: There was tightened carpal tunnel. This was dilated and released successfully with the endoscopic with increased space within the tunnel. The antebrachial fascia was released proximally freeing the median nerve at the wrist. The left middle finger A1 ashley was released without difficulty. The right middle finger A1 ashley was injected successfully. Procedure Description: Ellie was greeted in the preoperative holding area where the correct side was identified and marked. The consent was reviewed with the patient and signed. The history and physical was updated. All questions were answered. She was taken back to the operating room. The patient was placed into the sup ine position on the operating room table with the left arm on an arm board. A nonsterile tourniquet was placed high onto the arm. All bony prominences were well padded. Prophylactic antibiotics in the form of [Cefazolin] were administered. The left arm was then prepped with Chloraprep and draped in a standard fashion with stockinette and extremity drape. A timeout to confirm correct identity, side and site, procedure, allergies, anesthesia, and medical concerns was performed. The surgical site was marked in the volar wrist creases in line with the radial border of the fourth ray along with a longitudinal course above the A1 ashley of the middle finger. These areas were anesthetized with 1% Lidocaine with epinephrine, buffered with sodium bicarb and. The limb was then exsanguinated with an Esmarch. Starting with the carpal tunnel release, the skin was incised with a 15 blade, approximately 1cm. The skin only was cut and the deeper tissue was dissected bluntly with a tenotomy scissor, avoiding passing nerve and venous structures. The fascia was penetrated and opened bluntly. A two-prong skin hook was placed under this proximal fascial edge. A series of hamate finders were used to identify and dilate the carpal tunnel. Synovial elevator was used to free synovial attachments to the underside of the transverse carpal ligament. My thumb was kept in the palm to krystina the distal extent of the carpal tunnel and correctly position the hand. The [employer] endoscope was inserted without difficulty and without resistance. Excellent visualization showed horizontally running fibers of the transverse carpal ligament (TCL). The distal extent of the TCL was visualized and the end of the scope palpated with the thumb. The blade was elevated and withdrawn from distal to proximal. The TCL was split into two flaps. The endoscope was reinserted to confirm complete release and any remnant ligament was incised. The scope was withdrawn and the proximal aspect of the carpal tunnel was grossly inspected and appeared release with the median nerve visible. The antebrachial fascia at the level of the wrist was then freed from the overlying skin and then the underlying median nerve with blunt dissection. This was transected longitudinally for about 3cm proximal to the wrist incision. The wound was then irrigated with easy flow of irrigant distally and proximally. The incision was closed with a single 4-0 Nylon suture. Attention was then turned to the middle finger trigger release. A longitudinal incision was made through skin only, approximately 1cm. The deep tissues were dissected bluntly. Once the A1 ashley and flexor tendons were identified the soft tissue including neurovascular structures were retracted medially and laterally. There were no crossing structures over the A1 ashley. The proximal edge of the ashley was identified and the ashley was incised with tenotomy scissors. There was a release of the tendons once this was fully released. The tendons were then removed from the wound and inspected. The tendons were then returned and the hand was then once more inspected for any A0 ashley or area of possible constriction. The wound was then irrigated and the skin was closed with a 4-0 Nylon. The wounds were dressed with Xeroform, Gauze, Kerlix and Rashid. The tourniquet was deflated with the initial dressing and held with some pressure. Blood flow returned easily to all digits with capillary refill less than 2 seconds although there was some continued blanching of the middle finger due to the local filtration of epinephrine. The right middle finger was then injected at the level the A1 ashley. This area was marked on the skin. The skin was prepped ChloraPrep. Using a 25-gauge needle I then injected 1 cc of 0.25% bupivacaine along with 40 mg of Depo-Medrol into the flexor tendon sheath of the right middle finger. Hemostasis was obtained. A Band-Aid was applied. The patient tolerated the procedure well and was returned to the Same Day Surgery area in a stable condition suffering no known complication.
== END 2024-05-10 14:50 | disposition home or self-care (01) ==
LOC: SUR 10:09
PROVIDERS: PCP Physician Assistant Medical; Visit Provider Student in an Organized Health Care Education/Training Program
PROC: 01N54ZZ Release Median Nerve, Percutaneous Endoscopic Approach (ICD-10-PCS; CPT 29848; principal; 2024-05-10 13:15)
PROC: (CPT 26055; 2024-05-10 13:15)
PROC: (CPT 26055; 2024-05-10 13:15)
DX: G56.02 Carpal tunnel syndrome, left upper limb (principal); M65.332 Trigger finger, left middle finger; M65.331 Trigger finger, right middle finger
CPT/HCPCS: 26055; 20550; 29848; J0690; J1010; J2001; J2004; J2704

== ENCOUNTER → 2024-05-18 00:11 | Outpatient (CLI) | payer MEDICARE, SELFPAY ==
--- NOTE | 2024-05-18 | DI.MRI_ITS ---
Exam(s) MR ABDOMEN WO/W EXAM: MR ABDOMEN WO/W CLINICAL HISTORY: K86.89 Other specified DX of pancreas TECHNIQUE: Multiplanar multisequence MRI of the Abdomen was performed. CONTRAST MATERIAL: IV Contrast: 13 mL of Dotarem contrast administered. COMPARISON: CT CT CHEST PE CTA from 12/20/[address] ABDOMEN PELVIS WO from 01/07/2024 FINDINGS: Liver: There is an 8 mm simple cyst in the left lobe of the liver. No follow-up is recommended. No suspicious hepatic masses are present. Pancreas: There is fat again seen in the lateral aspect at the junction of the head and uncinate proc ess of the pancreas. No pancreatic mass is seen. No enhancing pancreatic lesion is seen. Gallbladder and Bile Ducts: The gallbladder is absent. No biliary ductal dilatation is seen. Adrenals: Unremarkable. Kidneys: There are stable simple cyst in the superior pole of the right kidney. No follow-up is cheryl mmended. No suspicious renal mass is seen. There is stable bilateral extrarenal pelves present. No hydronephrosis is seen. Spleen: Unremarkable. Bowel: There is diverticulosis seen in the colon. No evidence of diverticulitis. No suspicious sawyer l wall thickening or obstruction is seen. Aorta: Unremarkable. Soft Tissues: Unremarkable. Bone: Unremarkable. Lymph Nodes: Unremarkable. IMPRESSION: No evidence of a pancreatic mass or enhancing lesion. DATA REPOSITORY:
[2024-05-18] MEDS: Normal Saline - Diluent 50 ML VIAL 25 ML IJ (09:55)
[2024-05-18] MEDS: Gadoterate meglumine 20 ML VIAL 13 ML IVP (09:57)
== END ==
PROVIDERS: PCP Physician Assistant Medical; Visit Provider Physician Assistant Medical
DX: K86.89 Other specified diseases of pancreas (principal)
CPT/HCPCS: 74183

== ENCOUNTER → 2024-05-22 13:20 | Outpatient (BNVA) | payer MEDICARE, SELFPAY | PROVIDERS: PCP Physician Assistant Medical; Referring Provider Physician Assistant Medical | DX: Z47.89 Encounter for other orthopedic aftercare (principal); M65.332 Trigger finger, left middle finger; G56.02 Carpal tunnel syndrome, left upper limb; M65.331 Trigger finger, right middle finger ==

== ENCOUNTER 2024-05-26 21:01 | Outpatient (REF) | payer MEDICARE, SELFPAY ==
[2024-05-26 21:32] LABS: Bacteria Many HPF (Negative); C & S Indicated? C&S Done As Ordered; WBC >50 HPF (0-5)
== END 2024-05-26 21:02 | disposition home or self-care (01) ==
LOC: LBN 21:01
PROVIDERS: PCP Physician Assistant Medical; Visit Provider Physician Assistant Medical
DX: N10 Acute pyelonephritis (principal); R82.998 Other abnormal findings in urine; B96.29 Other Escherichia coli [E. coli] as the cause of diseases classified elsewhere
CPT/HCPCS: 87077; 81015; 87086; 87186

== ENCOUNTER 2024-07-17 21:12 | Outpatient (REF) | payer MEDICARE, SELFPAY | END 2024-07-17 21:13 | disposition home or self-care (01) | LOC: LBN 21:12 | PROVIDERS: PCP Physician Assistant Medical; Visit Provider Nurse Practitioner Family | DX: N10 Acute pyelonephritis (principal) | CPT/HCPCS: 87077; 87086; 87186 ==

== ENCOUNTER 2024-07-27 16:28 | Outpatient (REF) | payer MEDICARE, SELFPAY ==
[2024-07-27 15:07] LABS: Bacteria Rare HPF (Negative); C & S Indicated? C&S Done As Ordered; Crystals Negative HPF (Negative); Epithelial Cells Rare HPF (Negative); Mucus Negative (Negative); RBC 0-2 HPF (0-2); WBC 0-2 HPF (0-5)
== END 2024-07-27 16:29 | disposition home or self-care (01) ==
LOC: LBN 16:28
PROVIDERS: PCP Physician Assistant Medical; Visit Provider Physician Assistant Medical
DX: R30.0 Dysuria (principal)
CPT/HCPCS: 81015; 87086

== ENCOUNTER 2024-08-09 22:15 | Outpatient (REF) | payer MEDICARE, SELFPAY ==
[2024-08-09 22:46] LABS: Bacteria Many HPF (Negative); C & S Indicated? C&S Done As Ordered; Casts Negative LPF (Negative); Crystals Negative HPF (Negative); Epithelial Cells Rare HPF (Negative); Mucus Negative (Negative); Other Cells Rare Transitional (Negative); RBC 0-2 HPF (0-2); WBC >50 HPF (0-5)
== END 2024-08-09 22:16 | disposition home or self-care (01) ==
LOC: NCHCN 22:15
PROVIDERS: PCP Physician Assistant Medical; Visit Provider Physician Assistant Medical
DX: R30.0 Dysuria (principal); R82.998 Other abnormal findings in urine
CPT/HCPCS: 87077; 81015; 87086; 87186

== ENCOUNTER 2024-11-07 15:43 | Outpatient (REF) | payer MEDICARE, SELFPAY | END 2024-11-07 15:44 | disposition home or self-care (01) | LOC: NCHCN 15:43 | PROVIDERS: PCP Physician Assistant Medical; Visit Provider Physician Assistant Medical | DX: R30.0 Dysuria (principal); R78.81 Bacteremia; B95.7 Other staphylococcus as the cause of diseases classified elsewhere | CPT/HCPCS: 87077; 87086 ==

== ENCOUNTER 2025-02-23 22:12 | Outpatient (REF) | payer MEDICARE, SELFPAY ==
[2025-02-23 21:54] LABS: Bacteria Rare HPF (Negative); Epithelial Cells Negative HPF (Negative); RBC Negative HPF (0-2); WBC Negative HPF (0-5)
[2025-02-23 21:55] LABS: C & S Indicated? C&S Done As Ordered; Casts Negative LPF (Negative); Crystals Negative HPF (Negative); Mucus Negative (Negative)
== END 2025-02-23 22:13 | disposition home or self-care (01) ==
LOC: LBN 22:12
PROVIDERS: PCP Physician Assistant Medical; Visit Provider Physician Assistant Medical
DX: R30.0 Dysuria (principal)
CPT/HCPCS: 81015; 87086

== ENCOUNTER 2025-04-25 18:48 | Outpatient (REF) | payer MEDICARE, SELFPAY ==
[2025-04-25 22:15] LABS: Anion Gap 6.7 mmol/L (3-11); BUN 19 mg/dL (7-18); CO2 26.3 mmol/L (21.0-32.0); CREATININE 0.6 mg/dL (0.55-1.02); Calcium 9.4 mg/dL (8.5-10.1); Calculated LDL 155 mg/dL (<100); Chloride 101 mmol/L (98-107); Cholesterol 239 mg/dL (<200); Estimated GFR 98.32 (mL/min/1.73m2); Glucose 104 mg/dL (74-106); HDL Cholesterol 55 mg/dL (>or=50); Potassium 3.9 mmol/L (3.5-5.1); Sodium 134 mmol/L (136-145); Triglyceride 145 mg/dL (<150)
[2025-04-25 22:17] LABS: Hemoglobin A1C 4.9 % (<5.7)
== END 2025-04-25 18:49 | disposition home or self-care (01) ==
LOC: NCHCN 18:48
PROVIDERS: PCP Physician Assistant Medical; Visit Provider Physician Assistant Medical
DX: Z13.6 Encounter for screening for cardiovascular disorders (principal); Z13.1 Encounter for screening for diabetes mellitus; E87.6 Hypokalemia
CPT/HCPCS: 80048; 80061; 83036

== ENCOUNTER 2025-05-10 16:18 | Outpatient (REF) | payer MEDICARE, SELFPAY ==
[2025-05-10 16:57] LABS: Bacteria Negative HPF (Negative); C & S Indicated? C&S Done As Ordered; Casts Negative LPF (Negative); Crystals Negative HPF (Negative); Epithelial Cells Rare HPF (Negative); Mucus Negative (Negative); RBC 0-2 HPF (0-2); WBC 0-2 HPF (0-5)
== END 2025-05-10 16:19 | disposition home or self-care (01) ==
LOC: LBN 16:18
PROVIDERS: PCP Physician Assistant Medical; Visit Provider Physician Assistant Medical
DX: R30.0 Dysuria (principal)
CPT/HCPCS: 81015; 87086

== ENCOUNTER 2025-05-15 18:13 | Outpatient (REF) | payer MEDICARE, SELFPAY | END 2025-05-15 18:14 | disposition home or self-care (01) | LOC: LBN 18:13 | PROVIDERS: PCP Physician Assistant Medical; Visit Provider Nurse Practitioner Family | DX: R30.0 Dysuria (principal) | CPT/HCPCS: 87086 ==

== ENCOUNTER 2025-06-20 02:03 | Outpatient (CLI) | payer MEDICARE, SELFPAY ==
--- NOTE | 2025-06-20 07:00 | DI.RAD_ITS ---
Exam(s) XR FOOT RT COMPLETE EXAM: XR FOOT RT COMPLETE CLINICAL HISTORY: Right foot pain,m79.671. TECHNIQUE: 2D digital imaging was performed of the right foot. Three images were obtained. AP, oblique and lateral views were obtained. COMPARISON: No exams were available for comparison FINDINGS: BONES: No acute fracture is present. No bony destructive lesion is seen. There is an enthesophyte at the posterior calcaneus. There is a small plantar calcaneal spur. JOINTS: No dislocation present. There is a hallux valgus deformity. There is joint space narrowing of the 1st MTP joint. There are mild degenerative changes seen at the interphalangeal joints of the toes. SOFT TISSUE: Normal. IMPRESSION: Hallux valgus deformity. Mild degenerative changes of the right foot. DATA REPOSITORY: RADIATION DOSE DELIVERED:
== END 2025-06-20 02:23 ==
PROVIDERS: PCP Physician Assistant Medical; Visit Provider Podiatrist
DX: M79.671 Pain in right foot (principal); M72.2 Plantar fascial fibromatosis; M67.01 Short Achilles tendon (acquired), right ankle; M20.21 Hallux rigidus, right foot
CPT/HCPCS: 73630

== ENCOUNTER → 2025-08-02 10:14 | Outpatient (BNVA) | payer MEDICARE, SELFPAY | PROVIDERS: PCP Physician Assistant Medical; Referring Provider Physician Assistant Medical; Visit Provider Podiatrist | DX: M79.671 Pain in right foot (principal); M72.2 Plantar fascial fibromatosis; M67.01 Short Achilles tendon (acquired), right ankle | CPT/HCPCS: 20550; 64455; J0702; J1100 ==

== ENCOUNTER → 2025-10-05 03:16 | Outpatient (CLI) | payer MEDICARE, SELFPAY ==
--- NOTE | 2025-10-05 | DI.MAMMO_ITS ---
Exam(s) MAMMO SCREENING EXAM: MAMMO SCREENING CLINICAL HISTORY: SCREENING, Z12.31 TECHNIQUE: Bilateral full field digital CC and MLO mammographic images were obtained with 3D tomosynthesis and utilizing computer aided detection (CAD). COMPARISON: Comparison is made with prior examinations. FINDINGS: Masses/Architectural Distortion: No suspicious masses or areas of architectural distortion are present. Microcalcifications: No suspicious pleomorphic-type are seen. Skin Thickening/Nipple Retraction: None. IMPRESSION: 1. No significant interval change with no specific features of malignancy noted. 2. Unless there is more urgent need, screening mammography is recommended, as per [place] [employer] guidelines. BI-RADS Category 1 - Negative Breast Density - Category B - There are scattered areas of fibroglandular density. Breast density Category C or D implies that the patient has dense breast tissue. Dense breast tissue can make it harder to find cancer on a mammogram. Dense breast tissue is also associated with an increased risk of breast cancer. This information about the result of the mammogram report was provided to the patient to raise their awareness. Use this report when you speak with the patient about their risks for breast cancer, which includes their family history. At that time, you may recommend additional screening tests (Ultrasound or MRI) as these tests may add significant information. A negative radiographic report should not delay biopsy if a dominant or clinically suspicious mass is present. Up to ten percent of cancers are not identified on mammography. A negative report may reinforce clinical impression. Adenosis and dense breasts may obscure an underlying neoplasm. False positive reports average 6 to 10%. Patient will receive a letter notifying them of these results.
--- NOTE | 2025-10-05 | DI.DEXA_ITS ---
Exam(s) XR DEXA BONE DENSITY W/WO ISIAH EXAM: XR DEXA BONE DENSITY W/WO ISIAH CLINICAL HISTORY: AGE RELATED OSTEOPOROSIS W/O CURRENT PATHOLOGICAL FRACTURE, M81.0 TECHNIQUE: COMPARISON: CR XR DEXA BONE DENSITY W/WO ISIAH from 09/27/2019 FINDINGS: Lateral Spine Image: Unremarkable. No compression deformities identified. Left hip: Total T-Score: -0.8. This compares to -1.2 on the prior examination. Total Z-Score: 0.6 T- and Z-scores: There is no evidence of osteoporosis. Lumbar Spine: Total T-Score: -2.3. This compares to -2.5 on the prior examination. Total Z-Score: -0.3. T- and Z-scores: Findings are consistent with osteopenia. IMPRESSION: There is osteopenia in the lumbar spine.
== END ==
LOC: DI 03:16
PROVIDERS: PCP Physician Assistant Medical; Visit Provider Physician Assistant Medical
DX: M81.0 Age-related osteoporosis without current pathological fracture (principal); Z12.31 Encounter for screening mammogram for malignant neoplasm of breast
CPT/HCPCS: 77063; 77067; 77080

== ENCOUNTER 2025-11-06 12:18 | Outpatient (REF) | payer MEDICARE, SELFPAY | END 2025-11-06 12:19 | disposition home or self-care (01) | LOC: LBN 12:18 | PROVIDERS: PCP Physician Assistant Medical; Visit Provider Nurse Practitioner Family | DX: N30.01 Acute cystitis with hematuria (principal) | CPT/HCPCS: 87077; 87086; 87186 ==

== ENCOUNTER → 2025-11-13 10:24 | Outpatient (BNVA) | payer MEDICARE, SELFPAY | PROVIDERS: PCP Physician Assistant Medical; Referring Provider Physician Assistant Medical; Visit Provider Podiatrist | DX: M79.671 Pain in right foot (principal); M72.2 Plantar fascial fibromatosis; M21.612 Bunion of left foot; M67.01 Short Achilles tendon (acquired), right ankle; M21.611 Bunion of right foot | CPT/HCPCS: 99213 ==